=== PATIENT | female | born 1950 | race African-American/Black ===

== ENCOUNTER 2017-05-10 14:01 | Inpatient (IN) ==
[2017-05-10] MEDS ORDERED: ALBUTEROL/IPRATROPIUM 3 ML NEB RESP TX STA ×2 (14:07→15:20)
--- NOTE | 2017-05-10 14:14 | EKG Report ---
Stationary ECG Study [facility] ER Test Date: 05/10/2017 2:11:29 PM Pat Name: SHERRON MONTANO Department: Room: Gender: F Configurator: Shanita Tompkins : 1950 Requested by: Fifi Aburto Order Number: [id number] Reading MD: GEE JONES Intervals [employer] Rate: 70 P: 81 IL: 164 QRS: -42 QRSD: 104 T: 61 QT: 421 QTc: 441 Interpretive Statements SINUS RHYTHM at 70 bpm ABNORMAL LEFT AXIS DEVIATION Electronically Signed On 05-11-17 08:15:42 CDT by GEE JONES [email or web address]
[2017-05-10 14:50] LABS: Basophils % 0.3 % (0.0-0.8); Eosinophils # 0.3 10*3/uL (0.0-0.87); Eosinophils % 3.3 % (0.00-10.9); Hematocrit 38.1 VOL% (35.7-47.0); Immature Granulocytes % 0.2 %; Immature Granulocytes Absolute 0.02 #; Lymphocytes # 2.8 10*3/uL (1.4-4.0); Lymphocytes % 29.1 % (21.3-54.2); Mean Corpuscular HGB Conc 34.1 GM/DL (32-36); Mean Corpuscular Hemoglobin 28 PG (27-34); Mean Corpuscular Volume 83.4 FL (87-102); Mean Platelet Volume 11.2 FL (9.6-12.0); Monocytes % 10.3 % (1.7-12.7); Neutrophils # 5.5 10*3/uL (1.4-7.4); Neutrophils % 56.8 % (38.7-73.9); Platelet Count 148 T/CUMM (130-400); Red Blood Count 4.57 MC/CUMM (3.8-5.5); Red Cell Distribution Width 13.2 % (9.3-17.3); White Blood Count 9.7 T/CUMM (4-12)
[2017-05-10 15:08] LABS: Albumin 3.4 G/DL (3.4-5.0); Bilirubin,Total 0.4 MG/DL (0.2-1.0); Calcium 9.4 MG/DL (8.5-10.1); Osmolality,Calculated 280.7 MOS/KG (273-304); Potassium 4.4 MMOL/L (3.5-5.1); Total Protein 7.8 G/DL (6.4-8.3)
[2017-05-10 15:10] LABS: Troponin I Only < 0.015 NG/ML (0.00-0.045)
[2017-05-10] MEDS ORDERED: FUROSEMIDE 40 MG/4 ML VIAL IV STA (15:20)
[2017-05-10] MEDS ORDERED: FUROSEMIDE 40 MG/4 ML VIAL ONE (15:26)
[2017-05-10] MEDS ORDERED: methylPREDNISolone SOD SUC 125 MG/2 ML VIAL IV STA (15:52)
--- NOTE | 2017-05-10 15:57 | XRay Report ---
XR chest 2V Indication: Shortness of breath. Chest 2 views: Compared 11/17/2016, lungs are much better aerated with resolution of the right perihilar and right basilar pneumonia. However, bilateral perihilar interstitial prominence and diffuse peribronchial thickening is present on the current exam. No focal pneumonia is seen. Heart size remains normal. Impression: Airways disease such as bronchitis or viral syndrome. PROCEDURE INTERPRETED AT [facility] Final Report Signed by: Pedro Luis Shearer M.D.
[2017-05-10] MEDS ORDERED: methylPREDNISolone SOD SUC 125 MG/2 ML VIAL ONE (15:59)
--- NOTE | 2017-05-10 16:34 | Emergency Department Note ---
Hedy Sanz Hilary, am scribing for, and in the presence of, Arturo Werner MD 15:21. Debbi Sanz Phillip K, MD, personally performed the services described in this documentation, ascribed by Jacklyn Knott in my presence, and it is both accurate and complete 633 . Arrival - Arrival Chief Complaint: Shortness of Breath Stated Complaint: chest pain ED Nursing Triage Note: pt c/o shortness of breath with exertion x2 weeks. wheezing auscultated by Provider in Triage. Mode of Arrival: Wheelchair Limitations: No Limitations Source: Patient, RN Notes Reviewed Time Seen by Provider: 05/10/17 15:11 - History of Present Illness HPI Narrative: Pt is a 66 y/o female presenting to the ED with c/o SOB which has been intermittent for a month. Pt confirms SOB, cough (dry), chest sore and wheezing but denies fever. She has a PMHx of HTN, IDDM, Adrenal DIsease, Asthma, Sleep apnea and Pneumonia. No other complaints or problems stated in the ED. Onset (ago): month(s) Consistency: constant Severity: mild Severity scale (1-10): 1 Allergies/Adverse Reactions: Allergies Allergy/AdvReac Type Severity Reaction Status Date / Time Penicillins Allergy Intermediate RASH Verified 05/10/17 14:08 aspirin AdvReac Intermediate Gastrointestinal Verified 05/10/17 14:08 Upset morphine AdvReac Intermediate Nausea Verified 05/10/17 14:08 Home Medications: Home Medications Medication Instructions Recorded Confirmed Type Cyanocobalamin Inj [Vitamin B12 1,000 mcg SUBCUT Q30D 01/16/15 05/10/17 History Inj] Furosemide Tab [Lasix Tab] 60 mg PO DAILY 01/16/15 05/10/17 History Montelukast Tab [Singulair Tab] 10 mg PO DAILY 01/16/15 05/10/17 History Nebivolol [Bystolic] 10 mg PO DAILY 01/16/15 05/10/17 History Spironolactone [Aldactone] 25 mg PO DAILY 01/16/15 05/10/17 History Valsartan [Diovan] 160 mg PO DAILY 01/16/15 05/10/17 History Insulin Detemir [Levemir] 65 unit SUBCUT QAM 07/22/15 05/10/17 History amLODIPine [Norvasc] 5 mg PO DAILY 07/22/15 05/10/17 History Dicyclomine Cap/Tab [Bentyl 10 mg PO QID 07/09/16 05/10/17 History Cap/Tab] Colesevelam [Welchol] 1,875 mg PO BID W/MEALS tablet 11/18/16 05/10/17 Rx Albuterol Inhaler [Proventil 2 puff INH Q4H PRN 02/01/17 05/10/17 History Inhaler] Benzonatate [Tessalon] 100 mg PO TID PRN 02/01/17 05/10/17 History Diclofenac 1% Gel [Voltaren 1% Gel] 1 applic TOP QID 02/01/17 05/10/17 History Gabapentin 100 mg PO DAILY 02/01/17 05/10/17 History Levothyroxine Tab [Synthroid Tab] 75 mcg PO DAILY 02/01/17 05/10/17 History Mometasone 50 Mcg Nasal [place] 2 spray BOTH NARES BID 02/01/17 05/10/17 History [Nasonex Nasal [place]] Albuterol Neb [Proventil Neb] 2.5 mg RESP TX QID 05/10/17 05/10/17 History Insulin Aspart Prot/Insuln Asp 20 unit SUBCUT BID 05/10/17 05/10/17 History [NovoLOG Mix 70-30 FlexPen] Insulin Detemir [Levemir] 45 unit SUBCUT BEDTIME 05/10/17 05/10/17 History Review of System - Review of System 12 point system: reviewed and no additional remarkable complaints except as stated - Review of System Constitutional: Absent: fever Respiratory: Present: cough, respiratory distress (SOB), wheezing Medical,Surgical,& Family Hx - Medical History Cardio: History of: Cardiac Dysrhythmia (tachycardia), Hypertension No history of: [place], Pacemaker Neurology: No history of: Seizures HEENT: No history of: Glaucoma Endocrine: History of: Adrenal Disease, Diabetes Mellitus (IDDM) No history of: Thyroid Disorder Rheumatology: History of;: Rheumatological Problems (ATHRITIS) Respiratory: History of: Asthma, Obstructive Sleep Apnea (sleeps with cpap), Pneumonia (2016) No history of: Bronchitis, COPD, Intubation, Pulmonary Embolism, Pulmonary Hypertension, Lung Cancer, Respiratory Problems Genitourinary: No history of: Kidney Stones Gastrointestinal: History of: Esophageal Varices, GERD, Hepatitis (Hepatitis C) , Liver Problems (liver cancer), Gastrointestinal Cancer (Liver cancer), GI Problems (esophageal varices) Musculoskeletal: History of: Back/Neck Problems (lower back pain, KNEE PAIN) Hematology: History of: Blood Transfusion Reaction (got hepatitis c) Other: History of: Cancer (liver cancer-2014) No history of: Anesthesia Reactions - Surgical History Cardiac Surgeries: Patient Denies: Cardiac Catheterization Neurologic Surgeries: Patient denies: Neurologic Surgery HEENT Surgeries: Surgical HX of: Eye Surgery (cataract bilaterally), Tonsilectomy & Adenoidectomy Patient denies: Thyroid Surgery Abdominal Surgeries: Surgical HX of: Abdominal Surgery, Appendectomy, Cholecystectomy, Colonoscopy, EGD Patient denies: Hernia Repair Reproductive Surgeries: Surgical HX of;: Section (x 2), Hysterectomy Patient denies;: Breast Surgery Orthopedic Surgeries: Patient denies;: Orthopedic Surgery - Family History Family History: Reports;: Family Cancer (mother-breast, sister-breast), Family Diabetes (mom and dad), Family Heart Disease (father), Family Hypertension ( mother and father) Denies;: Family Anesthesia Reaction, Family Psychiatric Problems, Family Stroke - Social History Smoking Status: Never smoker Frequency of Alcohol Use: None Type of Drug Use: None Exam Vital Signs: Vital Signs Temperature 98.0 F 05/10/17 14:04 Pulse Rate 70 05/10/17 15:43 Respiratory Rate 20 05/10/17 15:43 Blood Pressure 177/79 05/10/17 14:15 O2 Sat by Pulse Oximetry 100 05/10/17 15:43 - General General appearance: alert, in no apparent distress - Head Head exam: Present: atraumatic, normocephalic - Eye Eye exam: Present: normal appearance, PERRL, EOMI - ENT ENT exam: Present: mucous membranes moist, TM's normal bilaterally. Absent: mucous membranes dry - Neck Neck exam: Present: full ROM, trachea midline. Absent: tenderness - Chest Chest inspection: Present: symmetric chest wall rise. Absent: tenderness - Respiratory Respiratory exam: Present: rales (bibasilar in both lungs), wheezes (expiratory) - Cardiovascular Cardiovascular exam: Present: regular rate, normal rhythm, normal heart sounds. Absent: murmur, rubs, gallop - Abdominal Exam Abdominal exam: Present: soft, normal bowel sounds. Absent: distention, tenderness - Extremities Exam Extremities exam: Present: full ROM. Absent: tenderness - Back Exam Back exam: Present: full ROM. Absent: tenderness - Neurological Exam Neurological exam: Present: alert, oriented X3, CN II-XII intact. Absent: motor sensory deficit - Psychiatric Psychiatric exam: Present: normal affect, normal mood - Skin Skin exam: Present: warm, dry, intact, normal color. Absent: rash Course Course Narrative: Patient discussed with the hospitalist. Results - Labs CBC & BMP: 05/10/17 14:36 05/10/17 14:36 Lab Results: I have reviewed the patients labs Labs: Laboratory Tests 05/10/17 05/10/17 05/10/17 14:36 14:36 14:36 WBC 9.7 RBC 4.57 Hgb 13.0 Hct 38.1 MCV 83.4 L Plt Count 148 [place] # (Auto) 1.0 H Sodium 138 Potassium 4.4 Chloride 105 Carbon Dioxide 29 Glucose 185 H AST 47 H Alkaline Phosphatase 128 H Troponin I < 0.015 Total Protein 7.8 Globulin 4.4 H Albumin/Globulin Ratio 0.7 L Laboratory Tests 05/10/17 14:36 B-Natriuretic Peptide 6 - EKG EKG results: interpreted by CORRY HARP, sinus rhythm - Diagnostic Findings Procedure: Chest x-ray: report reviewed by me (Airways disease such as bronchitis or viral syndrome) Disposition Clinical Impression: Asthma with exacerbation, Bronchitis Case discussed with: patient Disposition: Still a Patient Condition: Guarded Additional Instructions: Admit to the hospitalist
[2017-05-10] MEDS ORDERED: LEVOFLOXACIN INJ 500 MG in PREMIX 1 EACH IV STA (16:35)
[2017-05-10] MEDS ORDERED: LEVOFLOXACIN INJ 100 ML IV ONE (16:40)
[2017-05-10] MEDS ORDERED: ONDANSETRON 4 MG/2 ML VIAL IV PRN (17:36)
[2017-05-10] MEDS ORDERED: ACETAMINOPHEN 325 MG TABLET PO PRN (17:36)
[2017-05-10] MEDS ORDERED: ALBUTEROL 2.5 MG/3 ML NEB RESP TX PRN (17:36)
[2017-05-10] MEDS ORDERED: ZALEPLON 5 MG CAPSULE PO PRN (17:36)
[2017-05-10] MEDS ORDERED: BENZONATATE 100 MG CAPSULE PO PRN (17:36)
[2017-05-10] MEDS ORDERED: DEXTROSE 50% 25 GM/50 ML VIAL IV PRN (17:36)
[2017-05-10] MEDS ORDERED: MAGNESIUM SULF RIDER 2 GM in PREMIX 1 EACH IV ONE (17:36)
[2017-05-10] MEDS ORDERED: GLUCAGON 1 MG VIAL IM PRN (17:36)
--- NOTE | 2017-05-10 17:38 | Hospitalist History & Physical ---
Assessment and Plan (1) Asthma with exacerbation Status: Acute Assessment and plan: solumedrol, albuterol, levaquin, and singulair Current Visit: Yes (2) Diabetes Status: Acute Assessment and plan: ISC, restart home insulin Current Visit: Yes (3) Hypertension Status: Acute Assessment and plan: hold bystolic due to asthma, increase norvasc Current Visit: Yes (4) Obstructive sleep apnea Status: Acute Assessment and plan: cpap at night Current Visit: No (5) Bronchitis Status: Acute Assessment and plan: cont levaquin, solumedrol and albuterol neb every 4 hours, with prn every 2. Current Visit: Yes History of Present Illness Chief complaint: cough History of present illness: Ms. Mills is a 66 year old female DM, HTN and VAN sent over from Dr. Chiang office for asthma exacerbation. Patient coughing nonproductive since March. Already treating for asthma with inhalers, singulair and nebulizer. Reports chronic diarrhea which is why she is on welchol. Cannot lay flat as she cannot breath, does use her cpap at night. Could be having exacerbation of asthma due to GERD. Home Medications Medication Instructions Recorded Confirmed Type Cyanocobalamin Inj [Vitamin B12 1,000 mcg SUBCUT Q30D 01/16/15 05/10/17 History Inj] Furosemide Tab [Lasix Tab] 60 mg PO DAILY 01/16/15 05/10/17 History Montelukast Tab [Singulair Tab] 10 mg PO DAILY 01/16/15 05/10/17 History Nebivolol [Bystolic] 10 mg PO DAILY 01/16/15 05/10/17 History Spironolactone [Aldactone] 25 mg PO DAILY 01/16/15 05/10/17 History Valsartan [Diovan] 160 mg PO DAILY 01/16/15 05/10/17 History Insulin Detemir [Levemir] 65 unit SUBCUT QAM 07/22/15 05/10/17 History amLODIPine [Norvasc] 5 mg PO DAILY 07/22/15 05/10/17 History Dicyclomine Cap/Tab [Bentyl 10 mg PO QID 07/09/16 05/10/17 History Cap/Tab] Colesevelam [Welchol] 1,875 mg PO BID W/MEALS tablet 11/18/16 05/10/17 Rx Albuterol Inhaler [Proventil 2 puff INH Q4H PRN 02/01/17 05/10/17 History Inhaler] Benzonatate [Tessalon] 100 mg PO TID PRN 02/01/17 05/10/17 History Diclofenac 1% Gel [Voltaren 1% Gel] 1 applic TOP QID 02/01/17 05/10/17 History Gabapentin 100 mg PO DAILY 02/01/17 05/10/17 History Levothyroxine Tab [Synthroid Tab] 75 mcg PO DAILY 02/01/17 05/10/17 History Mometasone 50 Mcg Nasal [place] 2 spray BOTH NARES BID 02/01/17 05/10/17 History [Nasonex Nasal [place]] Albuterol Neb [Proventil Neb] 2.5 mg RESP TX QID 05/10/17 05/10/17 History Insulin Aspart Prot/Insuln Asp 20 unit SUBCUT BID 05/10/17 05/10/17 History [NovoLOG Mix 70-30 FlexPen] Insulin Detemir [Levemir] 45 unit SUBCUT BEDTIME 05/10/17 05/10/17 History Allergies Allergy/AdvReac Type Severity Reaction Status Date / Time Penicillins Allergy Intermediate RASH Verified 05/10/17 14:08 aspirin AdvReac Intermediate Gastrointestinal Verified 05/10/17 14:08 Upset morphine AdvReac Intermediate Nausea Verified 05/10/17 14:08 Medical,Surgical,& Family Hx - Medical History Cardio: History of: Cardiac Dysrhythmia (tachycardia), Hypertension No history of: [place], Pacemaker Neurology: No history of: Seizures HEENT: No history of: Glaucoma Endocrine: History of: Adrenal Disease, Diabetes Mellitus (IDDM) No history of: Thyroid Disorder Rheumatology: History of;: Rheumatological Problems (ATHRITIS) Respiratory: History of: Asthma, Obstructive Sleep Apnea (sleeps with cpap), Pneumonia (2016) No history of: Bronchitis, COPD, Intubation, Pulmonary Embolism, Pulmonary Hypertension, Lung Cancer, Respiratory Problems Genitourinary: No history of: Kidney Stones Gastrointestinal: History of: Esophageal Varices, GERD, Hepatitis (Hepatitis C) , Liver Problems (liver cancer), Gastrointestinal Cancer (Liver cancer), GI Problems (esophageal varices) Musculoskeletal: History of: Back/Neck Problems (lower back pain, KNEE PAIN) Hematology: History of: Blood Transfusion Reaction (got hepatitis c) Other: History of: Cancer (liver cancer-2014) No history of: Anesthesia Reactions - Surgical History Cardiac Surgeries: Patient Denies: Cardiac Catheterization Neurologic Surgeries: Patient denies: Neurologic Surgery HEENT Surgeries: Surgical HX of: Eye Surgery (cataract bilaterally), Tonsilectomy & Adenoidectomy Patient denies: Thyroid Surgery Abdominal Surgeries: Surgical HX of: Abdominal Surgery, Appendectomy, Cholecystectomy, Colonoscopy, EGD Patient denies: Hernia Repair Reproductive Surgeries: Surgical HX of;: Section (x 2), Hysterectomy Patient denies;: Breast Surgery Orthopedic Surgeries: Patient denies;: Orthopedic Surgery - Family History Family History: Reports;: Family Cancer (mother-breast, sister-breast), Family Diabetes (mom and dad), Family Heart Disease (father), Family Hypertension ( mother and father) Denies;: Family Anesthesia Reaction, Family Psychiatric Problems, Family Stroke - Social History Smoking Status: Never smoker Frequency of Alcohol Use: None Type of Drug Use: None Marital Status: Single Lives With:: Alone Functional capacity: independent ambulation - Constitutional Constitutional: Absent: fever(s), headache(s), weight gain - EENT Eyes: Absent: blurry vision, diplopia Ears: Absent: decreased hearing, ear discharge Nose, mouth and throat: Present: sore throat. Absent: headache(s) - Cardiovascular Cardiovascular: Present: dyspnea, dyspnea on exertion, orthopnea, PND. Absent: chest pain at rest, edema - Respiratory Respiratory: Present: dyspnea, dyspnea on exertion, wheezing, snoring - Gastrointestinal Gastrointestinal: Present: diarrhea. Absent: abdominal pain, nausea, vomiting - Genitourinary Genitourinary: Absent: difficulty urinating, dysuria - Neurological Neurological: Absent: confusion, focal weakness, headache(s) - Psychiatric Psychiatric: Present: depression. Absent: anxiety - Endocrine Endocrine: Absent: cold intolerance, fatigue - Hematologic/Lymphatic Hematologic/Lymphatic: Absent: easy bleeding, easy bruising Exam - Constitutional Vitals: Period Temp Pulse Resp BP Sys/Bernabe Pulse Ox Last 24 Hr 98.0 F-98.0 F 66-76 18-22 133-195/79-102 93-100 General appearance: no acute distress, morbidly obese - Head Head exam: Present: normal inspection, normocephalic - Eye Eye exam: Present: EOMI. Absent: conjunctival injection, scleral icterus Pupils: Present: CHRISTY, normal accommodation - ENT ENT exam: Present: normal exam, normal external ear exam - Neck Neck exam: Present: thyromegaly. Absent: lymphadenopathy - Respiratory Respiratory exam: Present: decreased breath sounds, wheezes. Absent: rhonchi - Cardiovascular Cardiovascular exam: Present: regular rate and rhythm. Absent: systolic murmur - GI/Abdominal GI/Abdominal exam: Present: normal bowel sounds, soft. Absent: tenderness - Extremities Exam Extremities exam: Present: normal inspection, normal capillary refill. Absent: edema - Neurological Exam Neurological exam: Present: alert, oriented X3, CN II-XII intact, reflexes normal. Absent: motor sensory deficit - Psychiatric Psychiatric exam: Present: normal affect, normal mood - Skin Skin exam: Present: normal color, warm Results - Labs CBC & BMP: 05/10/17 14:36 05/10/17 14:36 Lab Results: I have reviewed the past 24 hour labs - EKG EKG shows: sinus rhythm - Diagnostic Findings Procedure: Chest x-ray: report reviewed by me (bronchitis)
[2017-05-10] MEDS: ENOXAPARIN 40 MG/0.4 ML SYRINGE SUBCUT SCH (18:29)
[2017-05-10] MEDS: ALBUTEROL 2.5 MG/3 ML NEB RESP TX SCH ×2 (19:12→22:24)
[2017-05-10] MEDS ORDERED: INSULIN GLARGINE 100 UNIT/ML SUBCUT SCH (21:00)
[2017-05-10] MEDS: MONTELUKAST 10 MG TABLET PO SCH (21:23)
[2017-05-10] MEDS: PANTOPRAZOLE 40 MG TABLET PO SCH (21:23)
[2017-05-10] MEDS: DICYCLOMINE 10 MG CAPSULE PO SCH (21:23)
[2017-05-10] MEDS: methylPREDNISolone SOD SUC 125 MG/2 ML VIAL IV SCH (21:23)
[2017-05-10] MEDS: MOMETASONE 50 MCG NASAL SPRAY 17 GM BOTTLE BOTH NARES SCH (21:28)
[2017-05-10] MEDS: BUDESONIDE/FORMOTEROL 160-4.5 INHALER 6 GM INH SCH (21:28)
[2017-05-10] MEDS: INSULIN LISPRO 100 UNIT/ML SUBCUT SCH (22:55)
[2017-05-11] MEDS: ALBUTEROL 2.5 MG/3 ML NEB RESP TX SCH ×5 (03:55→19:38)
[2017-05-11] MEDS: methylPREDNISolone SOD SUC 125 MG/2 ML VIAL IV SCH ×4 (04:49→21:16)
[2017-05-11 05:21] LABS: Calcium 9.8 MG/DL (8.5-10.1); Osmolality,Calculated 287.8 MOS/KG (273-304)
[2017-05-11] MEDS: COLESEVELAM 625 MG TABLET PO SCH ×2 (07:44→16:11)
--- NOTE | 2017-05-11 08:23 | Physician Query Form ---
CLICK EDIT DOCUMENT TO SELECT QUERY ANSWER --> OK --> SIGN Noelle Rouse RN, CCDS Certified Clinical [employer] Making Machine Operator W) [phone] (f) [phone] [email or web address] PROVIDERS: Make your selection(s) from the choices in EACH section by typing an "x" and enter comments in the comment section. Please use your independent medical judgment in providing your response. This request does not imply that any particular answer is desired or expected. CLINICAL INDICATORS: (Providers should not edit this section) The medical record indicates that the patient was admitted for asthma exacerbation and the patient was treated with "solumedrol, albuterol, levaquin, and singulair". Based on documentation of Asthma, can you please provide further specificity regarding the diagnosis? ( ) Mild intermittent extrinsic asthma with acute exacerbation ( ) Mild persistent extrinsic asthma with acute exacerbation ( ) Moderate persistent extrinsic asthma with acute exacerbation ( ) Severe persistent extrinsic asthma with acute exacerbation ( x) Mild intermittent extrinsic asthma with status asthmaticus ( ) Mild persistent extrinsic asthma with status asthmaticus ( ) Moderate persistent extrinsic asthma with status asthmaticus ( ) Severe intermittent extrinsic asthma with status asthmaticus ( ) Other, please specify: ( ) Clinically unable to determine COMMENTS: PLEASE ALSO DOCUMENT RESPONSE IN PROGRESS NOTES AND/OR DISCHARGE SUMMARY Use of terms such as suspected, likely, or probable (associated with a specific diagnosis that is being evaluated, monitored, or treated as if it exists) are acceptable and can be restated in the discharge summary if not ruled out. MTDD
[2017-05-11] MEDS ORDERED: amLODIPine 5 MG TABLET PO SCH (09:00)
[2017-05-11] MEDS ORDERED: INSULIN GLARGINE 100 UNIT/ML SUBCUT SCH ×3 (09:00→11:41)
[2017-05-11] MEDS: DICYCLOMINE 10 MG CAPSULE PO SCH ×4 (09:03→21:15)
[2017-05-11] MEDS: INSULIN LISPRO 100 UNIT/ML SUBCUT SCH ×4 (09:03→21:15)
[2017-05-11] MEDS: VALSARTAN 160 MG TABLET PO SCH (09:03)
[2017-05-11] MEDS: GABAPENTIN 100 MG CAPSULE PO SCH (09:03)
[2017-05-11] MEDS: amLODIPine 10 MG TABLET PO SCH (09:03)
[2017-05-11] MEDS: PANTOPRAZOLE 40 MG TABLET PO SCH ×2 (09:03→21:14)
[2017-05-11] MEDS: LEVOTHYROXINE 75 MCG TABLET PO SCH (09:04)
[2017-05-11] MEDS: BUDESONIDE/FORMOTEROL 160-4.5 INHALER 6 GM INH SCH ×2 (09:04→21:16)
[2017-05-11] MEDS: MOMETASONE 50 MCG NASAL SPRAY 17 GM BOTTLE BOTH NARES SCH ×2 (09:04→21:16)
--- NOTE | 2017-05-11 11:38 | Hospitalist Progress Note ---
Assessment and Plan (1) Asthma with exacerbation Status: Acute Assessment and plan: Improving. plan continue with solumedrol, albuterol, levaquin, and singulair Current Visit: Yes (2) Diabetes Status: Acute Assessment and plan: poorly controlled most likely due to steroids. Plan increase qam Lantus to 75units, qhs lantus to 55units, follow response [id number] Current Visit: Yes (3) Hypertension Status: Acute Assessment and plan: continue home meds Current Visit: Yes (4) Obstructive sleep apnea Status: Acute Assessment and plan: cpap at night Current Visit: No (5) Bronchitis Status: Acute Assessment and plan: cont levaquin, solumedrol and albuterol neb every 4 hours, with prn every 2. Current Visit: Yes (6) History of liver cancer Status: Acute Assessment and plan: s/p chemo x2, awaiting surgery at [facility]. Current Visit: No Hospitalist: Subjective Interval history: Patient seen this am. She states she breathes and feels better. Exam - Constitutional Vitals: Period Temp Pulse Resp BP Sys/Bernabe Pulse Ox Last 24 Hr 96.5 F-98.0 F 66-96 16-22 115-195/59-102 93-100 General appearance: no acute distress, over weight - Eye Eye exam: Present: EOMI - Respiratory Respiratory exam: Present: clear to auscultation bilaterally, rales - Cardiovascular Cardiovascular exam: Present: regular rate and rhythm - GI/Abdominal GI/Abdominal exam: Present: normal bowel sounds - Extremities Exam Extremities exam: Present: normal inspection - Neurological Exam Neurological exam: Present: alert, oriented X3 Results - Labs CBC & BMP: 05/10/17 14:36 05/11/17 03:31 Lab Results: I have reviewed the past 24 hour labs
[2017-05-11] MEDS: ENOXAPARIN 40 MG/0.4 ML SYRINGE SUBCUT SCH (17:43)
--- NOTE | 2017-05-11 20:34 | ECHO Report ---
Aixa Mills Exam Date: 05/11/2017 09:50 Referring Physician: Technologist: suzie Ordonez ARDMS, RVT Age: 66 Ht (in): 62 Wt (lb): 239 Gender: F Exam Location: [facility] Echo Indications: Chest pain, unspecified, Essential (primary) hypertension, Cough, Asthma, VAN, Dyspnea, unspecified, IDDM BP: 129 / 60 HR: 76 Rhythm: Sinus Technical Quality: Fair IMPRESSIONS Normal LV systolic function, ejection fraction 60%. Grade 1/4 diastolic dysfunction. Mild mitral, tricuspid and pulmonic regurgitation. MEASUREMENTS (Male / Female) Normal Values 2D ECHO LV Diastolic Diameter PLAX 3.8 cm 4.2 - 5.9 / 3.9 - 5.3 cm LV Systolic Diameter PLAX 2.0 cm LV Fractional Shortening PLAX 47.1 % IVS Diastolic Thickness 1.0 cm 0.6 - 1.0 / 0.6 - 0.9 cm LVPW Diastolic Thickness 1.0 cm 0.6 - 1.0 / 0.6 - 0.9 cm RV Internal Dim ED PLAX 3.1 cm Aortic Root Diameter 3.1 cm LA Systolic Diameter LX 3.6 cm 3.0 - 4.0 / 2.7 - 3.8 cm DOPPLER TR Peak Velocity 288.0 cm/s TR Peak Gradient 33.2 mmHg FINDINGS Left Ventricle Normal left ventricular cavity size. Normal left ventricular wall thickness. Left ventricular ejection fraction is estimated at 60%. Right Ventricle The right ventricle is normal in size and function. Right Atrium The right atrium is normal in size. Left Atrium The left atrium is normal in size. Mitral Valve Morphologically normal mitral valve. No mitral valve stenosis. Mild mitral valve regurgitation. Aortic Valve Morphologically normal aortic valve without significant sclerosis or stenosis. There is no aortic regurgitation. Tricuspid Valve Morphologically normal tricuspid valve. Mild tricuspid valve regurgitation. Tricuspid regurgitation velocities suggest a PAP of 43 mmHg. Pulmonic Valve Morphologically normal pulmonic valve. Trace pulmonary valve regurgitation. Pericardium Normal pericardium without effusion. Aorta Normal ascending aorta dimension. Mihaela Conti MD (Electronically Signed) Final Date: 11 May 2017 20:33
[2017-05-11] MEDS: MONTELUKAST 10 MG TABLET PO SCH (21:14)
[2017-05-12] MEDS: ALBUTEROL 2.5 MG/3 ML NEB RESP TX SCH ×7 (00:01→23:21)
[2017-05-12] MEDS: methylPREDNISolone SOD SUC 125 MG/2 ML VIAL IV SCH ×2 (05:15→08:37)
[2017-05-12] MEDS: INSULIN LISPRO 100 UNIT/ML SUBCUT SCH ×4 (08:38→21:20)
[2017-05-12] MEDS: COLESEVELAM 625 MG TABLET PO SCH ×2 (08:39→16:53)
[2017-05-12] MEDS: LEVOTHYROXINE 75 MCG TABLET PO SCH (08:39)
[2017-05-12] MEDS: VALSARTAN 160 MG TABLET PO SCH (08:39)
[2017-05-12] MEDS: amLODIPine 10 MG TABLET PO SCH (08:39)
[2017-05-12] MEDS: DICYCLOMINE 10 MG CAPSULE PO SCH ×4 (08:40→21:20)
[2017-05-12] MEDS: PANTOPRAZOLE 40 MG TABLET PO SCH ×2 (08:40→21:20)
[2017-05-12] MEDS: GABAPENTIN 100 MG CAPSULE PO SCH (08:40)
[2017-05-12] MEDS: BUDESONIDE/FORMOTEROL 160-4.5 INHALER 6 GM INH SCH ×2 (08:43→21:20)
[2017-05-12] MEDS: MOMETASONE 50 MCG NASAL SPRAY 17 GM BOTTLE BOTH NARES SCH ×2 (08:45→21:20)
[2017-05-12] MEDS: predniSONE 20 MG TABLET PO SCH (09:16)
[2017-05-12] MEDS: FUROSEMIDE 20 MG TABLET PO SCH (09:54)
--- NOTE | 2017-05-12 12:22 | Hospitalist Progress Note ---
Assessment and Plan (1) Asthma with exacerbation Status: Acute Assessment and plan: Improving. plan continue with , albuterol, levaquin, and singulair Switch solumedrol to po prednisone Current Visit: Yes (2) Diabetes Status: Acute Assessment and plan: poorly controlled most likely due to steroids. Plan increase qam Lantus to 85units, qhs lantus to 65units, follow response [id number] Taper down steroids. Current Visit: Yes (3) Hypertension Status: Acute Assessment and plan: Increase Diovan to 320mg, follow response Current Visit: Yes (4) Obstructive sleep apnea Status: Acute Assessment and plan: cpap at night Current Visit: No (5) Bronchitis Status: Acute Assessment and plan: cont levaquin, steroids,and albuterol neb every 4 hours, with prn every 2. Current Visit: Yes (6) History of liver cancer Status: Acute Assessment and plan: s/p chemo x2, awaiting surgery at [facility]. Current Visit: No Hospitalist: Subjective Interval history: Patient feels better but blood sugar is out of control due to IV steroids. We will switch to lower dose and po Exam - Constitutional Vitals: Period Temp Pulse Resp BP Sys/Bernabe Pulse Ox Last 24 Hr 97.2 F-97.9 F 76-94 17-22 124-166/58-85 95-99 General appearance: no acute distress - Head Head exam: Present: normal inspection - Respiratory Respiratory exam: Present: rales - Cardiovascular Cardiovascular exam: Present: regular rate and rhythm - GI/Abdominal GI/Abdominal exam: Present: normal bowel sounds - Extremities Exam Extremities exam: Present: normal inspection - Neurological Exam Neurological exam: Present: alert, oriented X3 Results - Labs CBC & BMP: 05/10/17 14:36 05/11/17 03:31 Lab Results: I have reviewed the past 24 hour labs
[2017-05-12] MEDS ORDERED: VALSARTAN 160 MG TABLET PO SCH (12:23)
[2017-05-12 16:29] LABS: Apearance,Urine CLEAR (Clear); Bilirubin,Urine Negative (Negative); Blood, Urine Small mg/dL (Negative); Glucose,Urine (UA) >=500 mg/dL (Negative); Ketones,Urine Negative (Negative); Mucus,Urine Occasional /LPF (Occasional); Nitrite,Urine Negative (Negative); Protein,Urine Negative; RBC,Urine <1 /HPF (0-4); Squamous Epithelial Cell,Urine Occasional /HPF (0-10); Urine Color Colorless (Yellow); Urine Specific Gravity 1.006 (1.001-1.035); Urine Urobilinogen < 2.0 EU/DL (0.2-1.0); WBC,Urine <1 /HPF (0-6)
[2017-05-12] MEDS: MONTELUKAST 10 MG TABLET PO SCH (21:20)
[2017-05-12] MEDS: ENOXAPARIN 40 MG/0.4 ML SYRINGE SUBCUT SCH (21:20)
[2017-05-12] MEDS: INSULIN GLARGINE 100 UNIT/ML SUBCUT SCH (21:23)
[2017-05-13] MEDS: ALBUTEROL 2.5 MG/3 ML NEB RESP TX SCH ×5 (02:04→20:33)
[2017-05-13 07:13] LABS: Basophils % 0.1 % (0.0-0.8); Hematocrit 36.8 VOL% (35.7-47.0); Hemoglobin 13.1 GM/DL (12.0-16.0); Immature Granulocytes Absolute 0.16 #; Lymphocytes # 1.8 10*3/uL (1.4-4.0); Mean Corpuscular HGB Conc 35.6 GM/DL (32-36); Mean Corpuscular Hemoglobin 29 PG (27-34); Mean Corpuscular Volume 80.9 FL (87-102); Mean Platelet Volume 11.5 FL (9.6-12.0); Monocytes # 0.9 10*3/uL (0.11-0.8); Monocytes % 5.7 % (1.7-12.7); Neutrophils # 13.6 10*3/uL (1.4-7.4); Neutrophils % 82.2 % (38.7-73.9); Platelet Count 141 T/CUMM (130-400); Red Blood Count 4.55 MC/CUMM (3.8-5.5); Red Cell Distribution Width 12.7 % (9.3-17.3); White Blood Count 16.6 T/CUMM (4-12)
[2017-05-13 07:45] LABS: Osmolality,Calculated 280.5 MOS/KG (273-304); Potassium 3.8 MMOL/L (3.5-5.1)
[2017-05-13] MEDS: amLODIPine 10 MG TABLET PO SCH (08:27)
[2017-05-13] MEDS: predniSONE 20 MG TABLET PO SCH (08:27)
[2017-05-13] MEDS: DICYCLOMINE 10 MG CAPSULE PO SCH ×4 (08:27→21:28)
[2017-05-13] MEDS: LEVOTHYROXINE 75 MCG TABLET PO SCH (08:27)
[2017-05-13] MEDS: COLESEVELAM 625 MG TABLET PO SCH ×2 (08:27→16:20)
[2017-05-13] MEDS: INSULIN GLARGINE 100 UNIT/ML SUBCUT SCH ×2 (08:28→21:29)
[2017-05-13] MEDS: MOMETASONE 50 MCG NASAL SPRAY 17 GM BOTTLE BOTH NARES SCH ×2 (08:29→21:29)
[2017-05-13] MEDS: FUROSEMIDE 20 MG TABLET PO SCH (08:40)
[2017-05-13] MEDS: PANTOPRAZOLE 40 MG TABLET PO SCH ×2 (08:40→21:29)
[2017-05-13] MEDS: GABAPENTIN 100 MG CAPSULE PO SCH (08:43)
[2017-05-13] MEDS: BUDESONIDE/FORMOTEROL 160-4.5 INHALER 6 GM INH SCH ×2 (08:43→21:29)
[2017-05-13] MEDS: VALSARTAN 160 MG TABLET PO SCH (09:01)
[2017-05-13] MEDS: INSULIN LISPRO 100 UNIT/ML SUBCUT SCH ×4 (09:01→21:29)
--- NOTE | 2017-05-13 14:29 | Hospitalist Progress Note ---
Assessment and Plan (1) Asthma with exacerbation Status: Acute Assessment and plan: Improving.Hopefully dc in am plan continue with , albuterol, levaquin, and singulair, prednisone follow repeat CXR Current Visit: Yes (2) Diabetes Status: Acute Assessment and plan: Improved on current regime.[id number] Current Visit: Yes (3) Hypertension Status: Acute Assessment and plan: stable Current Visit: Yes (4) Obstructive sleep apnea Status: Acute Assessment and plan: cpap at night Current Visit: No (5) Bronchitis Status: Acute Assessment and plan: cont levaquin, steroids,and albuterol neb every 4 hours, with prn every 2. Current Visit: Yes (6) History of liver cancer Status: Acute Assessment and plan: s/p chemo x2, awaiting surgery at [facility]. Current Visit: No Hospitalist: Subjective Interval history: Patient was lying comfortably in bed with no new complaints. Exam - Constitutional Vitals: Period Temp Pulse Resp BP Sys/Bernabe Pulse Ox Last 24 Hr 96.8 F-97.2 F 74-95 16-20 125-169/61-97 93-99 General appearance: no acute distress - Head Head exam: Present: normal inspection - Respiratory Respiratory exam: Present: clear to auscultation bilaterally - Cardiovascular Cardiovascular exam: Present: regular rate and rhythm - Extremities Exam Extremities exam: Present: normal inspection - Neurological Exam Neurological exam: Present: alert, oriented X3 Results - Labs CBC & BMP: 05/13/17 06:45 05/13/17 06:45 Lab Results: I have reviewed the past 24 hour labs
[2017-05-13] MEDS: MONTELUKAST 10 MG TABLET PO SCH (21:29)
[2017-05-13] MEDS: ENOXAPARIN 40 MG/0.4 ML SYRINGE SUBCUT SCH (21:29)
[2017-05-14] MEDS: ALBUTEROL 2.5 MG/3 ML NEB RESP TX SCH ×7 (00:32→23:59)
--- NOTE | 2017-05-14 07:33 | XRay Report ---
Exam: XR chest 2V Date: 05/14/2017 4:00 AM Indication: Pneumonia Comparison: 05/10/2017 Technical: PA lateral Findings: Increasing at platelike atelectatic change in the left base and along the region of the minor fissure. Surgical changes present right upper abdomen. Cardiomegaly is present. Mid inspiratory chest was obtained. Degenerative change present thoracic spine. Mediastinum is otherwise intact. No pneumothorax. Moderate fecal debris in the upper abdomen Impression: 1. Cardiomegaly 2. Interval development of bilateral basilar atelectatic change and/or pneumonic infiltrates. PROCEDURE INTERPRETED AT [facility] DEPARTMENT OF RADIOLOGY Final Report Signed by: Dr. Wan Sepulveda
[2017-05-14] MEDS ORDERED: LEVOFLOXACIN INJ 750 MG in PREMIX 1 EACH IV ONE (08:36)
[2017-05-14] MEDS: LEVOTHYROXINE 75 MCG TABLET PO SCH (08:53)
[2017-05-14] MEDS: DICYCLOMINE 10 MG CAPSULE PO SCH ×4 (08:54→21:27)
[2017-05-14] MEDS: COLESEVELAM 625 MG TABLET PO SCH ×2 (08:54→17:00)
[2017-05-14] MEDS: amLODIPine 10 MG TABLET PO SCH (08:54)
[2017-05-14] MEDS: GABAPENTIN 100 MG CAPSULE PO SCH (08:54)
[2017-05-14] MEDS: predniSONE 20 MG TABLET PO SCH (08:54)
[2017-05-14] MEDS: PANTOPRAZOLE 40 MG TABLET PO SCH ×2 (08:55→21:31)
[2017-05-14] MEDS: FUROSEMIDE 20 MG TABLET PO SCH (08:55)
[2017-05-14] MEDS: VALSARTAN 160 MG TABLET PO SCH (08:55)
[2017-05-14] MEDS: INSULIN GLARGINE 100 UNIT/ML SUBCUT SCH ×2 (09:03→21:26)
--- NOTE | 2017-05-14 09:10 | Discharge Summary ---
Hospital Course - Time spent with patient Time with patient DS: Greater than 30 minutes Diagnosis - Discharge Diagnosis (1) Asthma with exacerbation Status: Acute (2) Diabetes Status: Acute (3) Hypertension Status: Acute (4) Obstructive sleep apnea Status: Acute (5) Bronchitis Status: Acute (6) History of liver cancer Status: Acute Discharge Plan - Discharge Medications No Action Montelukast Tab [Singulair Tab] 10 mg PO DAILY Furosemide Tab [Lasix Tab] 60 mg PO DAILY Valsartan [Diovan] 160 mg PO DAILY Cyanocobalamin Inj [Vitamin B12 Inj] 1,000 mcg SUBCUT Q30D Nebivolol [Bystolic] 10 mg PO DAILY Spironolactone [Aldactone] 25 mg PO DAILY Insulin Detemir [Levemir] 65 unit SUBCUT QAM amLODIPine [Norvasc] 5 mg PO DAILY Dicyclomine Cap/Tab [Bentyl Cap/Tab] 10 mg PO QID Levothyroxine Tab [Synthroid Tab] 75 mcg PO DAILY Diclofenac 1% Gel [Voltaren 1% Gel] 1 applic TOP QID Insulin Aspart Prot/Insuln Asp [NovoLOG Mix 70-30 FlexPen] 20 unit SUBCUT BID Albuterol Neb [Proventil Neb] 2.5 mg RESP [place] QID Colesevelam [Welchol] 1,875 mg PO BID W/MEALS tablet Albuterol Inhaler [Proventil Inhaler] 2 puff INH Q4H PRN PRN Reason: Shortness Of Breath/Wheezing Mometasone 50 Mcg Nasal [place] [Nasonex Nasal [place]] 2 spray BOTH NARES BID Gabapentin 100 mg PO DAILY Benzonatate [Tessalon] 100 mg PO TID PRN PRN Reason: Cough Insulin Detemir [Levemir] 45 unit SUBCUT BEDTIME - Follow Up or Referral - Forms/Instructions Exam - Constitutional Vitals: Period Temp Pulse Resp BP Sys/Bernabe Pulse Ox Last 24 Hr 97.1 F-98.1 F 69-87 16-22 127-196/63-88 92-100 Discharge Results Procedures and tests throughout hospitalization: Pending Orders 05/11/17 09:01 Blood Culture Routine Labs on day of discharge: Labs from last 24 hours 05/13/17 05/13/17 05/13/17 20:40 16:16 11:19 POC Glucose 279 H 266 H 231 H Preliminary micro results at discharge 08/01/17 09:01 Blood Culture - Preliminary Blood No growth at 1 day 05/11/17 09:01 Blood Culture - Preliminary Blood No growth at 1 day DS: Provider Date of admission: 05/10/17 16:48 Primary care physician: Umu Ramirez M.D. Attending physician on admission: Gerson SMITH Discharging clinician: Tracy Goodrich MD
[2017-05-14] MEDS: INSULIN LISPRO 100 UNIT/ML SUBCUT SCH ×4 (09:23→21:27)
[2017-05-14] MEDS ORDERED: INSULIN GLARGINE 100 UNIT/ML SUBCUT SCH (10:44)
--- NOTE | 2017-05-14 12:24 | Hospitalist Progress Note ---
Assessment and Plan (1) Asthma with exacerbation Status: Acute Assessment and plan: repeat CXR showed nterval development of bilateral basilar atelectatic change and/or pneumonic infiltrates. plan continue with , albuterol, levaquin, and singulair, prednisone Current Visit: Yes (2) Diabetes Status: Acute Assessment and plan: Improving. Qam lantus has been reduced to the original home dose. [id number] Current Visit: Yes (3) Hypertension Status: Acute Assessment and plan: continue current regime Current Visit: Yes (4) Obstructive sleep apnea Status: Acute Assessment and plan: cpap at night Current Visit: No (5) Bronchitis Status: Acute Assessment and plan: cont levaquin, steroids,and albuterol neb every 4 hours, with prn every 2. Current Visit: Yes (6) History of liver cancer Status: Acute Assessment and plan: s/p chemo x2, awaiting surgery at [facility]. Current Visit: No Hospitalist: Subjective Interval history: Patient seen. She was feeling weak.Her blood sugar is trending downwards so we reduced her qam Lantus to her original home dose. Exam - Constitutional Vitals: Period Temp Pulse Resp BP Sys/Bernabe Pulse Ox Last 24 Hr 95.8 F-98.1 F 69-87 16-22 127-196/63-88 92-100 General appearance: no acute distress - Head Head exam: Present: normal inspection - Respiratory Respiratory exam: Present: clear to auscultation bilaterally - Cardiovascular Cardiovascular exam: Present: regular rate and rhythm - GI/Abdominal GI/Abdominal exam: Present: normal bowel sounds - Extremities Exam Extremities exam: Present: normal inspection - Neurological Exam Neurological exam: Present: alert, oriented X3 Results - Labs CBC & BMP: 05/13/17 06:45 05/13/17 06:45 Lab Results: I have reviewed the past 24 hour labs
[2017-05-14] MEDS: BUDESONIDE/FORMOTEROL 160-4.5 INHALER 6 GM INH SCH ×2 (17:07→21:29)
[2017-05-14] MEDS: MOMETASONE 50 MCG NASAL SPRAY 17 GM BOTTLE BOTH NARES SCH ×2 (17:07→21:28)
[2017-05-14] MEDS: ENOXAPARIN 40 MG/0.4 ML SYRINGE SUBCUT SCH (21:27)
[2017-05-14] MEDS: MONTELUKAST 10 MG TABLET PO SCH (21:31)
[2017-05-15] MEDS: ALBUTEROL 2.5 MG/3 ML NEB RESP TX SCH ×3 (04:07→11:13)
[2017-05-15] MEDS: DICYCLOMINE 10 MG CAPSULE PO SCH ×2 (08:44→12:01)
[2017-05-15] MEDS: VALSARTAN 160 MG TABLET PO SCH (08:44)
[2017-05-15] MEDS: FUROSEMIDE 20 MG TABLET PO SCH (08:44)
[2017-05-15] MEDS: COLESEVELAM 625 MG TABLET PO SCH (08:45)
[2017-05-15] MEDS: PANTOPRAZOLE 40 MG TABLET PO SCH (08:45)
[2017-05-15] MEDS: GABAPENTIN 100 MG CAPSULE PO SCH (08:45)
[2017-05-15] MEDS: LEVOTHYROXINE 75 MCG TABLET PO SCH (08:45)
[2017-05-15] MEDS: predniSONE 20 MG TABLET PO SCH (08:45)
[2017-05-15] MEDS: amLODIPine 10 MG TABLET PO SCH (08:45)
[2017-05-15] MEDS: BUDESONIDE/FORMOTEROL 160-4.5 INHALER 6 GM INH SCH (08:50)
[2017-05-15] MEDS ORDERED: LEVOFLOXACIN INJ 750 MG in PREMIX 1 EACH IV SCH (09:00)
[2017-05-15] MEDS: MOMETASONE 50 MCG NASAL SPRAY 17 GM BOTTLE BOTH NARES SCH (09:11)
[2017-05-15] MEDS: INSULIN LISPRO 100 UNIT/ML SUBCUT SCH ×2 (09:11→12:00)
--- NOTE | 2017-05-15 11:05 | Discharge Summary ---
<Gerson Jose - Last Filed: 05/15/17 10:55> Hospital Course - Hospital Course Hospital Course: Ms. Mills is a 66 year old female who presented to the ED from her PCP's office for further evaluation of asthma exacerbation. On admission, the patient reported a nonproductive cough since March. She's already been treated with inhalers, singular and nebulizer. Echocardiogram revealed a normal LV systolic function with estimated EF of 60% and mild mitral, tricuspid and pulmonic regurgitation. Prednisone and levaquin was added to her regime for the exacerbation and bronchitis. She continued her CPAP while hospitalized and improved significantly. Patient's serum glucose was significantly elevated on admission and during her course. She was started on Lantus QAM and responded appropriately to therapy. HgbA1c 8.5. We have restarted her home dose of insulin since the downward trend in her glucose. At this time she has reached maximum benefit from hospitalization and is stable for discharge home. She will be discharged home to self with PCP follow up in 1-2 weeks.She feels much better today , we will continue with home bp meds and Insulin regime, place her on prednisone taper and po Levaquin x7days. She will need to follow with her PCP in 1week. - Time spent with patient Time with patient DS: Greater than 30 minutes Discharge Plan - Discharge Data Disposition: Disch To Home/Self Care - Discharge Medications New Budesonide/Formoterol 160-4.5 [Symbicort 160-4.5] 2 puff INH BID #7 inhaler HYDROcodone/ACETAMIN 7.5-325 [[place] 7.5-325] 1 tablet PO Q4H PRN #20 tablet PRN Reason: Pain Moderate (4-7) predniSONE TAB [PredniSONE] See Taper PO DAILY #14 tablet Levofloxacin Tab [Levaquin Tab] 750 mg PO DAILY #7 tablet Continue Montelukast Tab [Singulair Tab] 10 mg PO DAILY Furosemide Tab [Lasix Tab] 60 mg PO DAILY Valsartan [Diovan] 160 mg PO DAILY Cyanocobalamin Inj [Vitamin B12 Inj] 1,000 mcg SUBCUT Q30D Nebivolol [Bystolic] 10 mg PO DAILY Spironolactone [Aldactone] 25 mg PO DAILY Insulin Detemir [Levemir] 65 unit SUBCUT QAM amLODIPine [Norvasc] 5 mg PO DAILY Dicyclomine Cap/Tab [Bentyl Cap/Tab] 10 mg PO QID Levothyroxine Tab [Synthroid Tab] 75 mcg PO DAILY Diclofenac 1% Gel [Voltaren 1% Gel] 1 applic TOP QID Insulin Aspart Prot/Insuln Asp [NovoLOG Mix 70-30 FlexPen] 20 unit SUBCUT BID Albuterol Neb [Proventil Neb] 2.5 mg RESP TX QID Colesevelam [Welchol] 1,875 mg PO BID W/MEALS tablet Albuterol Inhaler [Proventil Inhaler] 2 puff INH Q4H PRN PRN Reason: Shortness Of Breath/Wheezing Gabapentin 100 mg PO DAILY Benzonatate [Tessalon] 100 mg PO TID PRN PRN Reason: Cough Insulin Detemir [Levemir] 45 unit SUBCUT BEDTIME Discontinued Mometasone 50 Mcg Nasal [place] [Nasonex Nasal [place]] 2 spray BOTH NARES BID - Follow Up or Referral - Forms/Instructions Exam - Constitutional Vitals: Period Temp Pulse Resp BP Sys/Bernabe Pulse Ox Last 24 Hr 96.1 F-98.2 F 75-89 18-22 139-173/65-84 94-100 Discharge Results Procedures and tests throughout hospitalization: Pending Orders 05/11/17 09:01 Blood Culture Routine Labs on day of discharge: Labs from last 24 hours 05/15/17 05/15/17 05/14/17 08:43 07:05 19:55 POC Glucose 147 H 66 L 313 H 05/14/17 05/14/17 05/14/17 15:45 12:22 08:03 POC Glucose 245 H 249 H 98 Preliminary micro results at discharge 05/11/17 09:01 Blood Culture - Preliminary Blood No growth at 3 days 05/11/17 09:01 Blood Culture - Preliminary Blood No growth at 3 days DS: Provider Date of admission: 05/10/17 16:48 Primary care physician: Umu Ramirez M.D. Attending physician on admission: Gerson SMITH Discharging clinician: Gerson SMITH Expected date of discharge: 05/15/17 <Tracy Goodrich - Last Filed: 05/15/17 11:21> Hospital Course - Time spent with patient Time with patient DS: Greater than 30 minutes (Time spent greater than 35mins) Diagnosis - Discharge Diagnosis (1) Asthma with exacerbation Status: Acute (2) Diabetes Status: Acute (3) Hypertension Status: Acute (4) Obstructive sleep apnea Status: Acute (5) Bronchitis Status: Acute (6) History of liver cancer Status: Acute Discharge Plan - Discharge Data Condition at Discharge: Stable Discharge Diet: diabetic diet Activity: resume usual activities as tolerated Exam - Constitutional General appearance: no acute distress - Head Head exam: Present: normal inspection - Respiratory Respiratory exam: Present: clear to auscultation bilaterally - Cardiovascular Cardiovascular exam: Present: regular rate and rhythm - GI/Abdominal GI/Abdominal exam: Present: normal bowel sounds - Extremities Exam Extremities exam: Present: normal inspection - Neurological Exam Neurological exam: Present: alert, oriented X3
[2017-05-15 11:48] VITALS: BP 133/70
== END 2017-05-15 13:00 | disposition home or self-care (01) | DRG 202 ==
LOC: N.ED 14:01 → N.EDINP 16:48 → SUATTDRO 16:48 → N.EDINP 17:29 → N.2E 17:35
PROVIDERS: ADMIT Physician Assistant; ATTEND Internal Medicine

== ENCOUNTER 2017-06-03 18:06 | Inpatient (IN) ==
[2017-06-03] MEDS ORDERED: ONDANSETRON 4 MG/2 ML VIAL IV STA (19:09)
[2017-06-03] MEDS ORDERED: SODIUM CHLORIDE 0.9% 500 ML IV STA (19:09)
[2017-06-03] MEDS ORDERED: MECLIZINE 25 MG TABLET PO STA (19:09)
[2017-06-03] MEDS ORDERED: INSULIN REGULAR 100 UNIT/ML SUBCUT STA (19:11)
--- NOTE | 2017-06-03 19:20 | Emergency Department Note ---
IMoises Emily, am scribing for, and in the presence of, Mendoza Mejia MD 19: 19. IJackie Charles R, MD, personally performed the services described in this documentation, ascribed by Poonam De Leon in my presence, and it is both accurate and complete 920 . Arrival - Arrival Chief Complaint: Non-Specific Stated Complaint: Blood Sugar over 600, Confused feeling ED Nursing Triage Note: elevated blood glucose 481 at time of triage - pt states that she was d/c from the hospital on for asthma and is currently taking steroids Mode of Arrival: Wheelchair Limitations: No Limitations Source: Patient Time Seen by Provider: 06/03/17 18:27 - History of Present Illness HPI Narrative: Pt is a 66 y/o female who came to ED with c/o elevated glucose of +600 that started since being seen on June 01 for asthma attack. Pt states she tried adjusting her insulin so her glucose level would not be effected. Pt reports that today is last day of steroid medication, but head "feels funny" like dizzy and "about to fall." Pt notes seeing provider today to check asthma and had nml results. Onset (ago): day(s) Consistency: constant Severity: mild Severity scale (1-10): 3 Quality: other (dizzy) Date of Last Menstrual Period: hyster Allergies/Adverse Reactions: Allergies Allergy/AdvReac Type Severity Reaction Status Date / Time Penicillins Allergy Intermediate RASH Verified 06/01/17 13:44 aspirin AdvReac Intermediate Gastrointestinal Verified 06/01/17 13:44 Upset morphine AdvReac Intermediate Nausea Verified 06/01/17 13:44 Home Medications: Home Medications Medication Instructions Recorded Confirmed Type Cyanocobalamin Inj [Vitamin B12 1,000 mcg SUBCUT Q30D 01/16/15 06/03/17 History Inj] Furosemide Tab [Lasix Tab] 60 mg PO QAM 01/16/15 06/03/17 History Montelukast Tab [Singulair Tab] 10 mg PO QAM 01/16/15 06/03/17 History Nebivolol [Bystolic] 10 mg PO QAM 01/16/15 06/03/17 History Spironolactone [Aldactone] 25 mg PO QAM 01/16/15 06/03/17 History Valsartan [Diovan] 160 mg PO QAM 01/16/15 06/03/17 History Insulin Detemir [Levemir] 65 unit SUBCUT QAM 07/22/15 06/03/17 History amLODIPine [Norvasc] 5 mg PO QAM 07/22/15 06/03/17 History Dicyclomine Cap/Tab [Bentyl 10 mg PO QID 07/09/16 06/03/17 History Cap/Tab] Colesevelam [Welchol] 1,875 mg PO BID W/MEALS tablet 11/18/16 06/03/17 Rx Benzonatate [Tessalon] 100 mg PO TID PRN 02/01/17 06/03/17 History Diclofenac 1% Gel [Voltaren 1% Gel] 1 applic TOP QID 02/01/17 06/03/17 History Gabapentin 100 mg PO QAM 02/01/17 06/03/17 History Levothyroxine Tab [Synthroid Tab] 75 mcg PO QAM 02/01/17 06/03/17 History Albuterol Neb [Proventil Neb] 2.5 mg RESP TX QID 05/10/17 06/03/17 History Insulin Aspart Prot/Insuln Asp 20 unit SUBCUT BID 05/10/17 06/03/17 History [NovoLOG Mix 70-30 FlexPen] Insulin Detemir [Levemir] 45 unit SUBCUT BEDTIME 05/10/17 06/03/17 History Budesonide/Formoterol 160-4.5 2 puff INH BID #7 inhaler 05/15/17 06/03/17 Rx [Symbicort 160-4.5] HYDROcodone/ACETAMIN 7.5-325 1 tablet PO Q4H PRN #20 tablet 05/15/17 06/03/17 Rx [[place] 7.5-325] Albuterol Inhaler [Proventil 2 puff INH Q4H PRN #1 inhaler 06/01/17 06/03/17 Rx Inhaler] Rifaximin [Xifaxan] 550 mg PO BID 06/01/17 06/03/17 History methylPREDNISolone DOSEPAK [Medrol 4 mg PO DAILY #21 tablet 06/01/17 06/03/17 Rx Dosepak] Review of System - Review of System 12 point system: reviewed and no additional remarkable complaints except as stated - Review of System Constitutional: Absent: fever Respiratory: Absent: respiratory distress Cardiovascular: Absent: chest pain, syncope Gastrointestinal: Absent: abdominal pain, nausea, vomiting Musculoskeletal: Absent: arm pain, neck pain Skin: Absent: rash Neurological: Present: other (dizziness). Absent: headache (head "feels funny") , numbness, confusion, abnormal gait Psychiatric: Absent: anxiety Medical,Surgical,& Family Hx - Medical History Cardio: History of: Cardiac Dysrhythmia (tachycardia), Hypertension No history of: MO, Pacemaker Neurology: No history of: Seizures HEENT: No history of: Glaucoma Endocrine: History of: Adrenal Disease, Diabetes Mellitus (IDDM) No history of: Thyroid Disorder Rheumatology: History of;: Rheumatological Problems (ATHRITIS) Respiratory: History of: Asthma, Obstructive Sleep Apnea (sleeps with cpap), Pneumonia (2016) No history of: Bronchitis, COPD, Intubation, Pulmonary Embolism, Pulmonary Hypertension, Lung Cancer, Respiratory Problems Genitourinary: No history of: Kidney Stones Gastrointestinal: History of: Esophageal Varices, GERD, Hepatitis (Hepatitis C) , Liver Problems (liver cancer), Gastrointestinal Cancer (Liver cancer), GI Problems (esophageal varices) Musculoskeletal: History of: Back/Neck Problems (lower back pain, KNEE PAIN) Hematology: History of: Blood Transfusion Reaction (got hepatitis c) Other: History of: Cancer (liver cancer-2014) No history of: Anesthesia Reactions - Surgical History Cardiac Surgeries: Patient Denies: Cardiac Catheterization Neurologic Surgeries: Patient denies: Neurologic Surgery HEENT Surgeries: Surgical HX of: Eye Surgery (cataract bilaterally), Tonsilectomy & Adenoidectomy Patient denies: Thyroid Surgery Abdominal Surgeries: Surgical HX of: Abdominal Surgery, Appendectomy, Cholecystectomy, Colonoscopy, EGD Patient denies: Hernia Repair Reproductive Surgeries: Surgical HX of;: Section (x 2), Hysterectomy Patient denies;: Breast Surgery Orthopedic Surgeries: Patient denies;: Orthopedic Surgery - Family History Family History: Reports;: Family Cancer (mother-breast, sister-breast), Family Diabetes (mom and dad), Family Heart Disease (father), Family Hypertension ( mother and father) Denies;: Family Anesthesia Reaction, Family Psychiatric Problems, Family Stroke - Social History Smoking Status: Never smoker Frequency of Alcohol Use: None Type of Drug Use: None Marital Status: Single Lives With:: Alone Functional capacity: independent ambulation Exam Vital Signs: Vital Signs Temperature 98.1 F 06/03/17 18:13 Pulse Rate 81 06/03/17 18:45 Respiratory Rate 18 06/03/17 18:45 Blood Pressure 160/87 06/03/17 18:45 O2 Sat by Pulse Oximetry 96 06/03/17 18:45 - General General appearance: alert, in no apparent distress, obese - Head Head exam: Present: atraumatic, normocephalic - Eye Eye exam: Present: PERRL, EOMI, nystagmus (mild) - ENT ENT exam: Present: mucous membranes moist. Absent: mucous membranes dry - Neck Neck exam: Present: full ROM, trachea midline - Chest Chest inspection: Present: symmetric chest wall rise - Respiratory Respiratory exam: Present: normal lung sounds bilaterally. Absent: accessory muscle use, respiratory distress, wheezes - Cardiovascular Cardiovascular exam: Present: regular rate, normal rhythm, normal heart sounds - Extremities Exam Extremities exam: Present: full ROM, pedal edema (+1). Absent: tenderness - Neurological Exam Neurological exam: Present: alert, oriented X3, CN II-XII intact. Absent: motor sensory deficit - Psychiatric Psychiatric exam: Present: normal affect, normal mood - Skin Skin exam: Present: warm, dry Course - Consultations Consultation #1: Hospitalist will admit patient Time: 21:02 Results - Labs CBC & BMP: 06/03/17 19:41 06/03/17 19:41 Lab Results: I have reviewed the patients labs Labs: Laboratory Tests 06/03/17 06/03/17 18:33 19:41 WBC 13.3 H D RBC 4.67 Hgb 13.6 D Hct 37.7 MCV 80.7 L MCHC 36.1 H Plt Count 182 Neut % (Auto) 84.8 H Lymph % (Auto) 11.2 L Neut # (Auto) 11.3 H Urine Color Straw Urine Appearance Clear Urine pH 6.0 Ur Specific [place] 1.016 Urine Glucose (UA) >=500 Urine Blood Negative Urine Nitrate Negative Urine Urobilinogen < 2.0 H Urine RBC <1 Urine WBC <1 Ur Squamous Epith Cells Occasional - Diagnostic Findings Procedure: Chest x-ray: report reviewed by me (Pulmonary hypoinflation and cardiomegaly, both stable since 2 [address]: report reviewed by me (Head wo con: No acute intracranial pathology. Generalized atrophy and changes consistent with microvascular disease.) Disposition Clinical Impression: Asthma, Generalized weakness, Nonketotic hyperglycemia, Hyponatremia Case discussed with: patient Disposition: Still a Patient Condition: Guarded Time of Disposition: 21:03
--- NOTE | 2017-06-03 19:42 | CT Report ---
CT head/brain wo con Indication: Dizziness. CT BRAIN WITHOUT CONTRAST DLP: 1012 mGy*cm. One or more of the following dose reduction techniques was used: Automated exposure control, adjustment of the mA and/or kV according the patient size, or use of iterative reconstruction techniques. Comparison: 11/29/2014. Date of admission: 06/03/2017. Technique: Axial noncontrast CT images of the brain were obtained. Findings: No acute hemorrhage, mass or mass effect. Generalized atrophy and patchy periventricular white matter hypodensity is present throughout both convexities. Cortical brandt-white junction and structures of the basal ganglia are well-defined. No bone lesions are shown. Internal auditory canals are symmetric. Visualized sinuses and mastoid air cells are clear. Impression: No acute intracranial pathology. Generalized atrophy and changes consistent with microvascular disease. PROCEDURE INTERPRETED AT [facility] DEPARTMENT OF RADIOLOGY Final Report Signed by: Pedro Luis Shearer M.D.
--- NOTE | 2017-06-03 19:48 | XRay Report ---
XR chest 1V portable Indication: Shortness of breath. Chest one view: Comparison 06/01/2017. Mild cardiomegaly, normal mediastinal contour are stable. Lungs remain hypoinflated, accentuated by obesity. They are however clear. Impression: Pulmonary hypoinflation and cardiomegaly, both stable since 2 days ago. PROCEDURE INTERPRETED AT [facility] DEPARTMENT OF RADIOLOGY Final Report Signed by: Pedro Luis Shearer M.D.
[2017-06-03] MEDS ORDERED: MECLIZINE 25 MG TABLET ONE (19:49)
[2017-06-03] MEDS ORDERED: ONDANSETRON 4 MG/2 ML VIAL ONE (19:49)
[2017-06-03] MEDS ORDERED: INSULIN REGULAR 100 UNIT/ML ONE (19:50)
[2017-06-03 19:52] LABS: Basophils % 0.1 % (0.0-0.8); Hematocrit 37.7 VOL% (35.7-47.0); Hemoglobin 13.6 GM/DL (12.0-16.0); Immature Granulocytes % 0.3 %; Immature Granulocytes Absolute 0.04 #; Lymphocytes # 1.5 10*3/uL (1.4-4.0); Lymphocytes % 11.2 % (21.3-54.2); Mean Corpuscular HGB Conc 36.1 GM/DL (32-36); Mean Corpuscular Hemoglobin 29 PG (27-34); Mean Corpuscular Volume 80.7 FL (87-102); Mean Platelet Volume 11.7 FL (9.6-12.0); Monocytes # 0.5 10*3/uL (0.11-0.8); Monocytes % 3.6 % (1.7-12.7); Neutrophils # 11.3 10*3/uL (1.4-7.4); Neutrophils % 84.8 % (38.7-73.9); Platelet Count 182 T/CUMM (130-400); Red Blood Count 4.67 MC/CUMM (3.8-5.5); Red Cell Distribution Width 12.7 % (9.3-17.3); White Blood Count 13.3 T/CUMM (4-12)
[2017-06-03 19:55] LABS: Apearance,Urine CLEAR (Clear); Bilirubin,Urine Negative (Negative); Blood, Urine Negative (Negative); Glucose,Urine (UA) >=500 mg/dL (Negative); Ketones,Urine Negative (Negative); Nitrite,Urine Negative (Negative); Protein,Urine Negative; RBC,Urine <1 /HPF (0-4); Squamous Epithelial Cell,Urine Occasional /HPF (0-10); Urine Color Straw (Yellow); Urine Specific Gravity 1.016 (1.001-1.035); Urine Urobilinogen < 2.0 EU/DL (0.2-1.0); WBC,Urine <1 /HPF (0-6)
[2017-06-03 20:16] LABS: Alanine Aminotransferase 39 U/L (13-56); Alkaline Phosphatase 144 U/L (45-117); Aspartate Amino Transferase 15 U/L (0-37); Blood Urea Nitrogen 34 MG/DL (7-18); Calcium 10.1 MG/DL (8.5-10.1); Magnesium 2.5 MG/DL (1.8-2.4); Osmolality,Calculated 290.9 MOS/KG (273-304); Potassium 4.5 MMOL/L (3.5-5.1); Sodium 129 MMOL/L (136-145); Total Protein 8.2 G/DL (6.4-8.3); Troponin I Only < 0.015 NG/ML (0.00-0.045)
[2017-06-03 20:26] LABS: Glucose 540 MG/DL (74-106)
[2017-06-03] MEDS ORDERED: GLUCAGON 1 MG VIAL IM PRN (21:54)
[2017-06-03] MEDS ORDERED: ONDANSETRON 4 MG/2 ML VIAL IV PRN (21:54)
[2017-06-03] MEDS ORDERED: DOCUSATE SODIUM 100 MG CAPSULE PO PRN (21:54)
[2017-06-03] MEDS ORDERED: DEXTROSE 50% 25 GM/50 ML SYRINGE IV PRN (21:54)
[2017-06-03] MEDS ORDERED: INSULIN DETEMIR 100 UNIT/ML SUBCUT SCH (22:30)
--- NOTE | 2017-06-03 22:44 | Hospitalist History & Physical ---
Assessment and Plan - Time spent with patient Time spent with patient: Greater than 30 minutes (1) Acute hyperglycemia Status: Acute Assessment and plan: Admit to hospitalist services. Likely due to recent use of oral steroids to treat an asthma exacerbation. Last dose of steroids was today. IV normal saline at 100 mL/h. Diabetic diet. Accu-Cheks before meals at bedtime. Sliding scale insulin before meals at bedtime. Home dose of Lantus 45 units subcu at bedtime and 65 units SQ each morning. Home dose of Humulin 70/30 20 units SQ twice daily. Recheck BMP in a.m. Current Visit: Yes (2) Hyponatremia Status: Acute Assessment and plan: Sodium level in the ED was 129. When corrected for hyperglycemia sodium is 136. IV normal saline at 100 mL/h. Recheck BMP in a.m. Current Visit: Yes (3) Asthma Status: Acute Assessment and plan: Albuterol nebs 4 times daily as needed. Symbicort 2 puffs twice daily. Benzonatate 100 mg 3 times daily as needed for cough. Singulair 10 mg every morning. O2 per unit protocol. Current Visit: Yes (4) Hypertension Status: Chronic Assessment and plan: Continue home hypertensive medications. Amlodipine 5 mg every morning. Bystolic 10 mg every morning. Spironolactone 25 mg every morning. Valsartan 160 mg every morning. Lasix 60 mg every morning. Continue to monitor fluid status. Current Visit: No (5) Congestive heart failure Status: Chronic Assessment and plan: Continue home hypertensive medications as above. Continue to monitor fluid status. Current Visit: Yes (6) Hypothyroidism Status: Chronic Assessment and plan: Continue home dose of levothyroxine 75 mcg before breakfast. Current Visit: Yes (7) Obstructive sleep apnea Status: Chronic Assessment and plan: Use CPAP while sleeping and at bedtime at home settings reported by patient to be 11. Current Visit: No (8) DVT prophylaxis Status: Acute Assessment and plan: No contraindications to pharmacologic therapy. Lovenox 40 mg SQ daily. Current Visit: Yes History of Present Illness Chief complaint: Hyperglycemia History of present illness: Ms. Mills is a 66 year old female with a history of IDDM, Liver CA, HTN, CHF, VAN, asthma, and chronic diarrhea who presented to the ED tonight with complaints of high blood sugar. Ms. Mills states that she began feeling lightheaded and sleepy. When she checked her blood sugar, it was >600. She also reports that on Wednesday of this week, she was seen in treated in the ED for asthma exacerbation, for which she was prescribed oral steroids which she has been taking and finished today. In the ED, she was found to have a BG of 540, but ketones were absent from urine. She denies nausea, vomiting, fever and chills. Hospitalist services were consulted for further evaluation and treatment , and the patient will be admitted to the medical-surgical unit. Home Medications Medication Instructions Recorded Confirmed Type Cyanocobalamin Inj [Vitamin B12 1,000 mcg SUBCUT Q30D 01/16/15 06/03/17 History Inj] Furosemide Tab [Lasix Tab] 60 mg PO QAM 01/16/15 06/03/17 History Montelukast Tab [Singulair Tab] 10 mg PO QAM 01/16/15 06/03/17 History Nebivolol [Bystolic] 10 mg PO QAM 01/16/15 06/03/17 History Spironolactone [Aldactone] 25 mg PO QAM 01/16/15 06/03/17 History Valsartan [Diovan] 160 mg PO QAM 01/16/15 06/03/17 History Insulin Detemir [Levemir] 65 unit SUBCUT QAM 07/22/15 06/03/17 History amLODIPine [Norvasc] 5 mg PO QAM 07/22/15 06/03/17 History Dicyclomine Cap/Tab [Bentyl 10 mg PO QID 07/09/16 06/03/17 History Cap/Tab] Colesevelam [Welchol] 1,875 mg PO BID W/MEALS tablet 11/18/16 06/03/17 Rx Benzonatate [Tessalon] 100 mg PO TID PRN 02/01/17 06/03/17 History Diclofenac 1% Gel [Voltaren 1% Gel] 1 applic TOP QID 02/01/17 06/03/17 History Gabapentin 100 mg PO QAM 02/01/17 06/03/17 History Levothyroxine Tab [Synthroid Tab] 75 mcg PO QAM 02/01/17 06/03/17 History Albuterol Neb [Proventil Neb] 2.5 mg RESP TX QID 05/10/17 06/03/17 History Insulin Aspart Prot/Insuln Asp 20 unit SUBCUT BID 05/10/17 06/03/17 History [NovoLOG Mix 70-30 FlexPen] Insulin Detemir [Levemir] 45 unit SUBCUT BEDTIME 05/10/17 06/03/17 History Budesonide/Formoterol 160-4.5 2 puff INH BID #7 inhaler 05/15/17 06/03/17 Rx [Symbicort 160-4.5] HYDROcodone/ACETAMIN 7.5-325 1 tablet PO Q4H PRN #20 tablet 05/15/17 06/03/17 Rx [[place] 7.5-325] Albuterol Inhaler [Proventil 2 puff INH Q4H PRN #1 inhaler 06/01/17 06/03/17 Rx Inhaler] Rifaximin [Xifaxan] 550 mg PO BID 06/01/17 06/03/17 History methylPREDNISolone DOSEPAK [Medrol 4 mg PO DAILY #21 tablet 06/01/17 06/03/17 Rx Dosepak] Allergies Allergy/AdvReac Type Severity Reaction Status Date / Time Penicillins Allergy Intermediate RASH Verified 06/01/17 13:44 aspirin AdvReac Intermediate Gastrointestinal Verified 06/01/17 13:44 Upset morphine AdvReac Intermediate Nausea Verified 06/01/17 13:44 Medical,Surgical,& Family Hx - Medical History Cardio: History of: Cardiac Dysrhythmia (tachycardia), Hypertension No history of: CO, Pacemaker Psychological: No history of: Anxiety Disorders, Depression Neurology: No history of: Cerebrovascular Accident, Seizures HEENT: No history of: Ear Problem, Eye Problem, Glaucoma Endocrine: History of: Adrenal Disease, Diabetes Mellitus (IDDM), Thyroid Disorder (hypothyroidism) Rheumatology: No history of;: Rheumatoid Arthritis Respiratory: History of: Asthma, Obstructive Sleep Apnea (sleeps with cpap), Pneumonia (2016) No history of: Bronchitis, COPD, Intubation, Pulmonary Embolism, Pulmonary Hypertension, Lung Cancer, Respiratory Problems Renal: No history of: Renal Failure, Renal Problems Genitourinary: No history of: Kidney Stones Gastrointestinal: History of: Esophageal Varices, GERD, Hepatitis (Hepatitis C) , Liver Problems (liver cancer), Gastrointestinal Cancer (Liver cancer), GI Problems (esophageal varices) Musculoskeletal: History of: Back/Neck Problems (lower back pain, KNEE PAIN) Hematology: History of: Blood Transfusion Reaction (got hepatitis c) Other: History of: Cancer (liver cancer-2014) No history of: Anesthesia Reactions - Surgical History Cardiac Surgeries: Patient Denies: Cardiac Catheterization Neurologic Surgeries: Patient denies: Neurologic Surgery HEENT Surgeries: Surgical HX of: Eye Surgery (cataract bilaterally), Tonsilectomy & Adenoidectomy Patient denies: Thyroid Surgery Abdominal Surgeries: Surgical HX of: Abdominal Surgery, Appendectomy, Cholecystectomy, Colonoscopy, EGD Patient denies: Hernia Repair Reproductive Surgeries: Surgical HX of;: Section (x 2), Hysterectomy Patient denies;: Breast Surgery Orthopedic Surgeries: Patient denies;: Orthopedic Surgery - Family History Family History: Reports;: Family Cancer (mother-breast, sister-breast), Family Diabetes (mom and dad), Family Heart Disease (father), Family Hypertension ( mother and father) Denies;: Family Anesthesia Reaction, Family Psychiatric Problems, Family Stroke - Social History Smoking Status: Never smoker Frequency of Alcohol Use: None Type of Drug Use: None Marital Status: Lives With:: Spouse Functional capacity: independent ambulation - Constitutional Constitutional: Present: daytime sleepiness. Absent: chills, fatigue, fever(s) , headache(s), lethargy, malaise, weakness - EENT Eyes: Absent: blurry vision, diplopia, loss of vision Ears: Absent: decreased hearing, ear discharge, ear pain Nose, mouth and throat: Absent: headache(s), nasal congestion, sore throat - Cardiovascular Cardiovascular: Absent: dyspnea, edema, orthopnea, palpitations - Respiratory Respiratory: Present: cough. Absent: dyspnea, wheezing - Gastrointestinal Gastrointestinal: Present: diarrhea (chronic). Absent: abdominal pain, constipation, nausea, vomiting - Genitourinary Genitourinary: Absent: dysuria, urinary frequency - Musculoskeletal Musculoskeletal: Absent: arthralgias, joint swelling, muscle weakness, myalgias - Neurological Neurological: Present: dizziness. Absent: numbness, paresthesias - Psychiatric Psychiatric: Absent: anxiety, depression - Endocrine Endocrine: Absent: cold intolerance, polydipsia, polyphagia, polyuria - Hematologic/Lymphatic Hematologic/Lymphatic: Absent: easy bleeding, easy bruising Exam - Constitutional Vitals: Period Temp Pulse Resp BP Sys/Bernabe Pulse Ox Last 24 Hr 98.1 F-98.1 F 81-92 18-20 160-162/84-87 94-96 Exam: Constitutional System: Afebrile. Awake alert and oriented 3. No distress. No tremulousness. Head: Normocephalic, atraumatic. Ears, Nose and Throat System: No pain or tenderness. No epistaxis or discharge Eyes System: Pupils equal, round, and reactive. Extraocular muscles intact. Neck: Supple, without adenopathy, No jugular venous distention. No thyromegaly, neck mass, or prior surgery apparent. Respiratory System: Chest clear to auscultation. Cardiovascular System: Heart with regular rate and rhythm. No murmur. GI System: Abdomen soft, nontender. Normo active bowel sounds present. Musculoskeletal System: limbs with no pedal edema. Full distal pulses. Normal capillary refill. Neurological System: No discernable sensory deficit. No aphasia Psychiatric System: Conversation is rational Results - Labs CBC & BMP: 06/03/17 19:41 06/03/17 19:41 Lab Results: I have reviewed the past 24 hour labs
[2017-06-04] MEDS ORDERED: BENZONATATE 100 MG CAPSULE PO PRN (00:01)
[2017-06-04] MEDS: INSULIN NPH/REGULAR 70/30 100 UNIT/ML SUBCUT SCH ×4 (00:19→22:05)
[2017-06-04] MEDS: BUDESONIDE/FORMOTEROL 160-4.5 INHALER 6 GM INH SCH ×3 (00:46→22:07)
[2017-06-04] MEDS: SODIUM CHLORIDE 0.9% 1,000 ML IV SCH ×3 (00:46→22:07)
[2017-06-04] MEDS: RIFAXIMIN 550 MG TABLET PO SCH ×3 (00:46→22:05)
--- NOTE | 2017-06-04 02:18 | EKG Report ---
Stationary ECG Study [facility] ER Test Date: 06/03/2017 8:01:38 PM Pat Name: SHERRON MONTANO Department: Room: 243 Gender: F [employer]: : 1950 Requested by: Mendoza Zeng Order Number: [id number] Mikhail MD: CARMINA RIUZ Intervals [place] Rate: 72 P: 66 SC: 163 QRS: -32 QRSD: 106 T: 2 QT: 396 QTc: 420 Interpretive Statements SINUS RHYTHM LEFT AXIS DEVIATION VOLTAGE CRITERIA FOR LVH POSSIBLE ANTERIOR MYOCARDIAL INFARCTION, PROBABLY OLD Electronically Signed On 06-04-17 17:10:18 CDT by CARMINA RUIZ [email or web address]
[2017-06-04 05:31] LABS: Basophils % 0.2 % (0.0-0.8); Eosinophils % 0.2 % (0.00-10.9); Hematocrit 34.8 VOL% (35.7-47.0); Hemoglobin 12.4 GM/DL (12.0-16.0); Immature Granulocytes % 0.5 %; Immature Granulocytes Absolute 0.05 #; Lymphocytes # 2.5 10*3/uL (1.4-4.0); Lymphocytes % 23.1 % (21.3-54.2); Mean Corpuscular HGB Conc 35.6 GM/DL (32-36); Mean Corpuscular Hemoglobin 29 PG (27-34); Mean Corpuscular Volume 80.9 FL (87-102); Mean Platelet Volume 11.5 FL (9.6-12.0); Monocytes # 0.7 10*3/uL (0.11-0.8); Neutrophils # 7.4 10*3/uL (1.4-7.4); Platelet Count 157 T/CUMM (130-400); Red Cell Distribution Width 12.8 % (9.3-17.3); White Blood Count 10.6 T/CUMM (4-12)
[2017-06-04 06:09] LABS: Osmolality,Calculated 293.1 MOS/KG (273-304); Potassium 4.5 MMOL/L (3.5-5.1)
--- NOTE | 2017-06-04 08:23 | Hospitalist Progress Note ---
Assessment and Plan - Time spent with patient Time spent with patient: Greater than 30 minutes (1) History of liver cancer Status: Acute Current Visit: No (2) Morbid obesity Status: Acute Current Visit: No (3) Asthma Status: Acute Current Visit: Yes (4) Diabetes Status: Acute Current Visit: No (5) Hypertension Status: Chronic Current Visit: No (6) Acute hyperglycemia Status: Acute Assessment and plan: We will uptitrate her insulin doses today and monitor fingerstick glucose. Continue sliding scale Continue gentle IV fluid hydration and monitoring BMP. No steroids at this time. Resume respiratory treatment with DuoNeb every 6 hourly to avoid an acute exacerbation and need for steroids. DVT prophylaxisLovenox Possible discharge tomorrow blood sugars improved. Current Visit: Yes Hospitalist: Subjective Interval history: She was admitted overnight for elevated blood glucose and possible hyperosmolar state attributed to steroid treatment during her acute asthma exacerbation. Blood sugars have improved, will continue on IV fluid hydration and insulin adjustment. She has no new complaints this morning. Her asthma seems controlled at this time. No fever. Exam - Constitutional Vitals: Period Temp Pulse Resp BP Sys/Bernabe Pulse Ox Last 24 Hr 97.5 F-98.1 F 66-92 16-20 148-172/72-98 92-98 Exam: Constitutional System: Afebrile. Awake alert and oriented 3. No distress. No tremulousness. Head: Normocephalic, atraumatic. Ears, Nose and Throat System: No pain or tenderness. No epistaxis or discharge Eyes System: Pupils equal, round, and reactive. Extraocular muscles intact. Neck: Supple, without adenopathy, No jugular venous distention. No thyromegaly, neck mass, or prior surgery apparent. Respiratory System: Chest clear to auscultation. Cardiovascular System: Heart with regular rate and rhythm. No murmur. GI System: Abdomen soft, nontender. Normo active bowel sounds present. Musculoskeletal System: limbs with no pedal edema. Full distal pulses. Normal capillary refill. Neurological System: No discernable sensory deficit. No aphasia Psychiatric System: Conversation is rational Results - Labs CBC & BMP: 06/04/17 05:19 06/04/17 05:19 Lab Results: I have reviewed the past 24 hour labs
[2017-06-04] MEDS ORDERED: INSULIN GLARGINE 100 UNIT/ML SUBCUT SCH ×4 (09:00→21:00)
[2017-06-04] MEDS ORDERED: ALBUTEROL 2.5 MG/3 ML NEB RESP TX PRN (09:00)
[2017-06-04] MEDS: COLESEVELAM 625 MG TABLET PO SCH ×2 (09:02→16:18)
[2017-06-04] MEDS: LEVOTHYROXINE 75 MCG TABLET PO SCH (09:04)
[2017-06-04] MEDS: FUROSEMIDE 20 MG TABLET PO SCH (09:04)
[2017-06-04] MEDS: SPIRONOLACTONE 25 MG TABLET PO SCH (09:07)
[2017-06-04] MEDS: DICYCLOMINE 10 MG CAPSULE PO SCH ×4 (09:07→22:05)
[2017-06-04] MEDS: VALSARTAN 160 MG TABLET PO SCH (09:07)
[2017-06-04] MEDS: PANTOPRAZOLE 40 MG TABLET PO SCH (09:08)
[2017-06-04] MEDS: amLODIPine 5 MG TABLET PO SCH (09:08)
[2017-06-04] MEDS: INSULIN LISPRO 100 UNIT/ML SUBCUT SCH ×4 (09:09→22:06)
[2017-06-04] MEDS: MONTELUKAST 10 MG TABLET PO SCH (09:09)
[2017-06-04] MEDS: ENOXAPARIN 40 MG/0.4 ML SYRINGE SUBCUT SCH (09:09)
[2017-06-04] MEDS: NEBIVOLOL 10 MG TABLET PO SCH (09:13)
[2017-06-04] MEDS: ALBUTEROL 2.5 MG/3 ML NEB RESP TX SCH ×2 (13:50→19:14)
[2017-06-05] MEDS: ALBUTEROL 2.5 MG/3 ML NEB RESP TX SCH ×2 (00:10→07:29)
[2017-06-05] MEDS: SODIUM CHLORIDE 0.9% 1,000 ML IV SCH (05:29)
[2017-06-05] MEDS: INSULIN LISPRO 100 UNIT/ML SUBCUT SCH ×2 (08:35→12:14)
[2017-06-05] MEDS: COLESEVELAM 625 MG TABLET PO SCH (08:36)
[2017-06-05] MEDS: FUROSEMIDE 20 MG TABLET PO SCH (08:36)
[2017-06-05] MEDS: PANTOPRAZOLE 40 MG TABLET PO SCH (08:36)
[2017-06-05] MEDS: DICYCLOMINE 10 MG CAPSULE PO SCH ×2 (08:36→12:14)
[2017-06-05] MEDS: LEVOTHYROXINE 75 MCG TABLET PO SCH (08:36)
[2017-06-05] MEDS: RIFAXIMIN 550 MG TABLET PO SCH (08:37)
[2017-06-05] MEDS: ENOXAPARIN 40 MG/0.4 ML SYRINGE SUBCUT SCH (08:37)
[2017-06-05] MEDS: MONTELUKAST 10 MG TABLET PO SCH (08:37)
[2017-06-05] MEDS: VALSARTAN 160 MG TABLET PO SCH (08:37)
[2017-06-05] MEDS: amLODIPine 5 MG TABLET PO SCH (08:37)
[2017-06-05] MEDS: SPIRONOLACTONE 25 MG TABLET PO SCH (08:37)
[2017-06-05] MEDS: NEBIVOLOL 10 MG TABLET PO SCH (08:37)
[2017-06-05] MEDS: INSULIN NPH/REGULAR 70/30 100 UNIT/ML SUBCUT SCH (08:43)
[2017-06-05] MEDS: BUDESONIDE/FORMOTEROL 160-4.5 INHALER 6 GM INH SCH (08:52)
--- NOTE | 2017-06-05 09:47 | Discharge Summary ---
Hospital Course - Hospital Course Hospital Course: 66-year-old lady with history of liver CA, hypertension, diabetes, CHF, sleep apnea and asthma. She was recently treated for asthma exacerbation requiring use of steroids, she then presented here for elevated blood glucose, blood glucose is greater than 600 at presentation to the emergency room. Labs did not suggest DKA as he was no acidosis or ketones she was admitted to the floor for possible hyperosmolar nonketotic state for control of blood glucose. She was started on aggressive fluid resuscitation and insulin, she responded to subcutaneous insulin, did not require IV insulin infusion. With the above management, blood sugars improved, steroids were put on hold and her respiratory status remained stable on respiratory treatment with DuoNeb. On the day of discharge, fingerstick glucose return to an acceptable range, 79, 221. Since her transient elevation of blood glucose was due to steroids, will discharge her on her usual home dose since she has been weaned of steroid. She will follow up with her primary care physician who will adjust insulin doses as needed. Rest of her hospital stay was uneventful - Time spent with patient Time with patient DS: Greater than 30 minutes Diagnosis - Discharge Diagnosis (1) History of liver cancer Status: Acute (2) Morbid obesity Status: Acute (3) Asthma Status: Acute (4) Diabetes Status: Acute (5) Hypertension Status: Chronic (6) Acute hyperglycemia Status: Acute Discharge Plan - Discharge Data Disposition: Disch To Home/Self Care Condition at Discharge: Stable Discharge Diet: diabetic diet, heart healthy Activity: resume usual activities as tolerated Hygiene: no restrictions Weight Bearing at Discharge: full weight bearing - Discharge Medications New Insulin Glargine [Lantus] 50 unit SUBCUT BEDTIME unit Pantoprazole Tab [Protonix Tab] 40 mg PO DAILY tablet Continue Montelukast Tab [Singulair Tab] 10 mg PO QAM Furosemide Tab [Lasix Tab] 60 mg PO QAM Valsartan [Diovan] 160 mg PO QAM Cyanocobalamin Inj [Vitamin B12 Inj] 1,000 mcg SUBCUT Q30D Nebivolol [Bystolic] 10 mg PO QAM Spironolactone [Aldactone] 25 mg PO QAM Insulin Detemir [Levemir] 65 unit SUBCUT QAM amLODIPine [Norvasc] 5 mg PO QAM Dicyclomine Cap/Tab [Bentyl Cap/Tab] 10 mg PO QID Levothyroxine Tab [Synthroid Tab] 75 mcg PO QAM Insulin Aspart Prot/Insuln Asp [NovoLOG Mix 70-30 FlexPen] 20 unit SUBCUT BID Albuterol Neb [Proventil Neb] 2.5 mg RESP TX QID Budesonide/Formoterol 160-4.5 [Symbicort 160-4.5] 2 puff INH BID #7 inhaler HYDROcodone/ACETAMIN 7.5-325 [[place] 7.5-325] 1 tablet PO Q4H PRN #20 tablet PRN Reason: Pain Moderate (4-7) Rifaximin [Xifaxan] 550 mg PO BID Colesevelam [Welchol] 1,875 mg PO BID W/MEALS tablet Gabapentin 100 mg PO QAM Benzonatate [Tessalon] 100 mg PO TID PRN PRN Reason: Cough Albuterol Inhaler [Proventil Inhaler] 2 puff INH Q4H PRN #1 inhaler PRN Reason: Shortness Of Breath/Wheezing Discontinued Diclofenac 1% Gel [Voltaren 1% Gel] 1 applic TOP QID methylPREDNISolone DOSEPAK [Medrol Dosepak] 4 mg PO DAILY #21 tablet Insulin Detemir [Levemir] 45 unit SUBCUT BEDTIME - Follow Up or Referral - Forms/Instructions Additional Discharge Instructions: follow up with PCP in 1-2 weeks Exam - Constitutional Vitals: Period Temp Pulse Resp BP Sys/Bernabe Pulse Ox Last 24 Hr 96.9 F-98.4 F 68-79 14-20 96-195/69-88 92-100 Discharge Results Procedures and tests throughout hospitalization: Pending Orders 06/03/17 20:00 Blood Culture Stat Labs on day of discharge: Labs from last 24 hours 06/05/17 06/04/17 06/04/17 07:53 21:19 15:26 POC Glucose 79 221 H 286 H 06/04/17 06/03/17 11:08 18:16 POC Glucose 349 H 471 H Preliminary micro results at discharge 06/03/17 20:00 Blood Culture - Preliminary Blood No growth at 1 day 06/03/17 19:41 Blood Culture - Preliminary Blood No growth at 1 day DS: Provider Date of admission: 06/03/17 21:55 Primary care physician: Umu F James, M.D. Attending physician on admission: Pedro Luis Johnson MD Discharging clinician: Oh Pool MD
[2017-06-05 12:29] VITALS: BP 146/68
--- NOTE | 2017-06-07 08:40 | Physician Query Form ---
CLICK EDIT DOCUMENT TO SELECT QUERY ANSWER --> OK --> SIGN Cinthia Santiago RN Clinical Health Care Facility Administrator W) [phone] (f) [phone] [email or web address] PROVIDERS: Make your selection(s) from the choices in EACH section by typing an "x" and enter comments in the comment section. Please use your independent medical judgment in providing your response. This request does not imply that any particular answer is desired or expected. CLINICAL INDICATORS: (Providers should not edit this section) Based on documentation of "history of CHF", BNP <2, Echo done 05/11/17 showed ejection fraction 60% with Grade 1/4 diastolic dysfunction. Pt. treated with Lasix as home medication. Please clarify the type of CHF the patient has a history of. Please provide further specificity regarding CHF. ( ) Past Medical History of Systolic CHF (x ) Past Medical History of Diastolic CHF ( ) Clinically unable to determine COMMENTS: PLEASE ALSO DOCUMENT RESPONSE IN PROGRESS NOTES AND/OR DISCHARGE SUMMARY Use of terms such as suspected, likely, or probable (associated with a specific diagnosis that is being evaluated, monitored, or treated as if it exists) are acceptable and can be restated in the discharge summary if not ruled out. [facility]
== END 2017-06-05 12:15 | disposition home or self-care (01) | DRG 637 ==
LOC: N.ED 18:06 → N.EDINP 21:55 → SUATTDRO 21:55 → N.2E 22:28
PROVIDERS: ADMIT Internal Medicine; ATTEND Internal Medicine

== ENCOUNTER 2017-07-07 19:59 | Inpatient (IN) ==
[2017-07-07] MEDS ORDERED: NITROGLYCERIN 2% OINT 1 INCH/GM PACK TOP STA (20:54)
[2017-07-07] MEDS ORDERED: ONDANSETRON 4 MG/2 ML VIAL IV STA (20:54)
[2017-07-07] MEDS ORDERED: hydrALAZINE 20 MG/1 ML VIAL IV STA (20:54)
[2017-07-07] MEDS ORDERED: CLINDAMYCIN INJ 600 MG in PREMIX 1 EACH IV STA (20:54)
[2017-07-07] MEDS ORDERED: methylPREDNISolone SOD SUC 125 MG/2 ML VIAL IV STA (20:54)
[2017-07-07] MEDS ORDERED: FUROSEMIDE 100 MG/10 ML VIAL IV STA (20:54)
--- NOTE | 2017-07-07 20:59 | Emergency Department Note ---
IMoises Emily, am scribing for, and in the presence of, Mendoza Mejia MD 20: 58. Jackie Sanz Charles R, MD, personally performed the services described in this documentation, ascribed by Poonam De Leon in my presence, and it is both accurate and complete . Arrival - Arrival Chief Complaint: Upper Respiratory Stated Complaint: cold , breathing ED Nursing Triage Note: Patient complains of a cough and asthma symptoms that have been going on for over a year. Patient denies runny nose or nasal congestion. Hx of asthma, bronchitis, CHF, HTN, DM. Mode of Arrival: Wheelchair Limitations: No Limitations Source: Patient Time Seen by Provider: 07/07/17 20:47 - History of Present Illness HPI Narrative: Pt is a 66 y/o female who came to ED with c/o cough and wheezing that has been ongoing for a year but worsened tonight. Pt reports seeing providers for these sxs with bronchiole scope with thick mucous on lungs causing chronic inflammation. Pt has associated sxs of orthopnea, urinates with every cough and elevated BP. Pt reports uses CPAP machine and has breathing machine at home. PMHx of Asthma, HTN, IDDM. Onset (ago): year(s) Consistency: constant Severity: mild, moderate Severity scale (1-10): 4 Quality: fullness Date of Last Menstrual Period: HYSTERECTOMY Allergies/Adverse Reactions: Allergies Allergy/AdvReac Type Severity Reaction Status Date / Time Penicillins Allergy Intermediate RASH Verified 07/06/17 06:24 aspirin AdvReac Intermediate Gastrointestinal Verified 07/06/17 06:24 Upset morphine AdvReac Intermediate Nausea Verified 07/06/17 06:24 Home Medications: Home Medications Medication Instructions Recorded Confirmed Type Cyanocobalamin Inj [Vitamin B12 1,000 mcg SUBCUT Q30D 01/16/15 07/07/17 History Inj] Furosemide Tab [Lasix Tab] 60 mg PO QAM 01/16/15 07/07/17 History Montelukast Tab [Singulair Tab] 10 mg PO QAM 01/16/15 07/07/17 History Insulin Detemir [Levemir] 68 unit SUBCUT QAM 07/22/15 07/07/17 History amLODIPine [Norvasc] 10 mg PO QAM 07/22/15 07/07/17 History Dicyclomine Cap/Tab [Bentyl 10 mg PO QID 07/09/16 07/07/17 History Cap/Tab] Colesevelam [Welchol] 1,875 mg PO BID W/MEALS tablet 11/18/16 07/07/17 Rx Benzonatate [Tessalon] 200 mg PO BID 02/01/17 07/07/17 History Gabapentin 100 mg PO QAM 02/01/17 07/07/17 History Levothyroxine Tab [Synthroid Tab] 100 mcg PO QAM 02/01/17 07/07/17 History Albuterol Neb [Proventil Neb] 2.5 mg RESP TX QID 05/10/17 07/07/17 History Insulin Aspart Prot/Insuln Asp 20 unit SUBCUT TID 05/10/17 07/07/17 History [NovoLOG Mix 70-30 FlexPen] Budesonide/Formoterol 160-4.5 2 puff INH BID #7 inhaler 05/15/17 07/07/17 Rx [Symbicort 160-4.5] Albuterol Inhaler [Proventil 2 puff INH Q4H PRN #1 inhaler 06/01/17 07/07/17 Rx Inhaler] Pantoprazole Tab [Protonix Tab] 40 mg PO DAILY tablet 06/05/17 07/07/17 Rx Insulin Detemir [Levemir] 52 unit SUBCUT BEDTIME 06/30/17 07/07/17 History Review of System - Review of System 12 point system: reviewed and no additional remarkable complaints except as stated - Review of System Constitutional: Absent: chills, fever, weakness Head/Ears/Nose/Throat: Absent: sore throat Respiratory: Present: cough, wheezing. Absent: respiratory distress Cardiovascular: Absent: chest pain Gastrointestinal: Absent: abdominal pain, nausea, vomiting, diarrhea, constipation Genitourinary female: Present: other (urinates with cough) Musculoskeletal: Absent: arm pain, neck pain Skin: Absent: rash Neurological: Absent: headache Medical,Surgical,& Family Hx - Medical History Cardio: History of: Cardiac Dysrhythmia (tachycardia), Hypertension, Cardiovascular Problems (DR KHAN.) No history of: [place], Pacemaker Psychological: No history of: Anxiety Disorders, Depression Neurology: No history of: Cerebrovascular Accident, Seizures HEENT: History of: Eye Problem (GLASSES), Dental Problems (UPPER DENTURE PARTIAL LOWER) No history of: Ear Problem, Glaucoma Endocrine: History of: Adrenal Disease, Diabetes Mellitus (IDDM), Thyroid Disorder (hypothyroidism) Rheumatology: History of;: Rheumatological Problems (ARTHRITIS) No history of;: Rheumatoid Arthritis Respiratory: History of: Asthma, Obstructive Sleep Apnea (sleeps with cpap), Pneumonia (), Respiratory Problems (FLU VAC- NO; PNEU VAC-NO.) No history of: Bronchitis, COPD, Intubation, Pulmonary Embolism, Pulmonary Hypertension, Lung Cancer Renal: No history of: Renal Failure, Renal Problems Genitourinary: No history of: Kidney Stones, Problems Gastrointestinal: History of: Esophageal Varices, GERD, Hepatitis (Hepatitis C) , Liver Problems (liver cancer), Gastrointestinal Cancer (Liver cancer), GI Problems (esophageal varices) Musculoskeletal: History of: Back/Neck Problems (lower back pain, KNEE PAIN) Hematology: History of: Blood Transfusion Reaction (got hepatitis c) Other: History of: Cancer (liver cancer-2013 DR KEENA GOLDBERG ALPancho) No history of: Anesthesia Reactions - Surgical History Cardiac Surgeries: Patient Denies: Cardiac Catheterization Neurologic Surgeries: Patient denies: Neurologic Surgery HEENT Surgeries: Surgical HX of: Eye Surgery (cataract bilaterally), Tonsilectomy & Adenoidectomy Patient denies: Thyroid Surgery Abdominal Surgeries: Surgical HX of: Abdominal Surgery, Appendectomy, Cholecystectomy, Colonoscopy, EGD Patient denies: Hernia Repair Reproductive Surgeries: Surgical HX of;: Section (x 2), Gynecologic Surgery, Hysterectomy Patient denies;: Breast Surgery Orthopedic Surgeries: Patient denies;: Orthopedic Surgery - Family History Family History: Reports;: Family Cancer (mother-breast, sister-breast), Family Diabetes (mom and dad), Family Heart Disease (father), Family Hypertension ( mother and father) Denies;: Family Anesthesia Reaction, Family Psychiatric Problems, Family Stroke - Social History Smoking Status: Never smoker Frequency of Alcohol Use: None Type of Drug Use: None Marital Status: Single Lives With:: Alone Functional capacity: independent ambulation Exam Vital Signs: Vital Signs Temperature 98.2 F 07/07/17 20:38 Pulse Rate 84 07/07/17 21:06 Respiratory Rate 22 07/07/17 21:06 Blood Pressure 179/85 07/07/17 20:38 O2 Sat by Pulse Oximetry 94 L 07/07/17 21:06 - General General appearance: alert, in no apparent distress, obese - Head Head exam: Present: atraumatic, normocephalic - Eye Eye exam: Present: PERRL, EOMI - ENT ENT exam: Present: mucous membranes moist. Absent: mucous membranes dry - Neck Neck exam: Present: full ROM - Chest Chest inspection: Present: symmetric chest wall rise - Respiratory Respiratory exam: Present: rales (at the base, bilaterally), wheezes (active, bilateral wheezing). Absent: normal lung sounds bilaterally, accessory muscle use - Cardiovascular Cardiovascular exam: Present: regular rate, normal rhythm, normal heart sounds - Abdominal Exam Abdominal exam: Present: soft, normal bowel sounds. Absent: tenderness - Extremities Exam Extremities exam: Present: full ROM, pedal edema (+1 BLE). Absent: tenderness - Neurological Exam Neurological exam: Present: alert, oriented X3, CN II-XII intact. Absent: motor sensory deficit - Psychiatric Psychiatric exam: Present: normal affect, normal mood - Skin Skin exam: Present: warm, dry Course - Reevaluation(s) Reevaluation #1: Patient is breathing better but she still has some wheezing and still complains of shortness of breath. Blood pressure is much lower near normal values will admit patient for observation Time: 23:43 - Consultations Consultation #1: Hospitalist will admit patient Time: 23:44 Results - Labs CBC & BMP: 07/07/17 22:48 07/07/17 22:48 Lab Results: I have reviewed the patients labs Labs: Laboratory Tests 07/07/17 22:48 MCV 82.8 L [place] # (Auto) 1.0 H Laboratory Tests 07/07/17 22:48 Glucose 143 H Alkaline Phosphatase 135 H Albumin 3.3 L Globulin 4.9 H Albumin/Globulin Ratio 0.6 L Disposition Clinical Impression: Upper respiratory infection, Bronchitis, Diabetes, Asthma with exacerbation, Morbid obesity, Obstructive sleep apnea, Acute dyspnea, Hypertensive urgency, CHF (congestive heart failure) Case discussed with: patient, patient's family Disposition: Still a Patient Condition: Stable Time of Disposition: 23:45
[2017-07-07] MEDS ORDERED: ALBUTEROL 2.5 MG/3 ML NEB RESP TX SCH (21:00)
--- NOTE | 2017-07-07 21:29 | Order Completion Report ---
See report scanned to EMR
[2017-07-07] MEDS ORDERED: NITROGLYCERIN 2% OINT 1 INCH/GM PACK TOP ONE (21:44)
[2017-07-07] MEDS ORDERED: hydrALAZINE 20 MG/1 ML VIAL ONE (21:44)
[2017-07-07] MEDS ORDERED: CLINDAMYCIN INJ 50 ML IV ONE (21:45)
[2017-07-07] MEDS ORDERED: FUROSEMIDE 20 MG/2 ML VIAL ONE (21:45)
[2017-07-07] MEDS ORDERED: ONDANSETRON 4 MG/2 ML VIAL ONE (21:45)
[2017-07-07] MEDS ORDERED: methylPREDNISolone SOD SUC 125 MG/2 ML VIAL ONE (21:45)
[2017-07-07] MEDS ORDERED: FUROSEMIDE 40 MG/4 ML VIAL ONE (21:45)
[2017-07-07 22:58] LABS: Basophils % 0.3 % (0.0-0.8); Eosinophils # 0.4 10*3/uL (0.0-0.87); Eosinophils % 3.8 % (0.00-10.9); Hematocrit 37.9 VOL% (35.7-47.0); Hemoglobin 13.4 GM/DL (12.0-16.0); Immature Granulocytes % 0.2 %; Immature Granulocytes Absolute 0.02 #; Lymphocytes # 3.6 10*3/uL (1.4-4.0); Lymphocytes % 33.6 % (21.3-54.2); Mean Corpuscular HGB Conc 35.4 GM/DL (32-36); Mean Corpuscular Hemoglobin 29 PG (27-34); Mean Corpuscular Volume 82.8 FL (87-102); Mean Platelet Volume 10.9 FL (9.6-12.0); Monocytes % 9.6 % (1.7-12.7); Neutrophils # 5.6 10*3/uL (1.4-7.4); Neutrophils % 52.5 % (38.7-73.9); Platelet Count 194 T/CUMM (130-400); Red Blood Count 4.58 MC/CUMM (3.8-5.5); Red Cell Distribution Width 13.1 % (9.3-17.3); White Blood Count 10.7 T/CUMM (4-12)
[2017-07-07 23:10] LABS: PT Patient Result 10.1 SECS
[2017-07-07 23:30] LABS: Alanine Aminotransferase 39 U/L (13-56); Albumin 3.3 G/DL (3.4-5.0); Alkaline Phosphatase 135 U/L (45-117); Aspartate Amino Transferase 31 U/L (0-37); Blood Urea Nitrogen 17 MG/DL (7-18); Calcium 9.2 MG/DL (8.5-10.1); Glucose 143 MG/DL (74-106); Magnesium 1.8 MG/DL (1.8-2.4); Osmolality,Calculated 282.4 MOS/KG (273-304); Potassium 3.9 MMOL/L (3.5-5.1); Sodium 140 MMOL/L (136-145); Total Protein 8.2 G/DL (6.4-8.3); Troponin I Only < 0.015 NG/ML (0.00-0.045)
--- NOTE | 2017-07-08 01:18 | Hospitalist History & Physical ---
Assessment and Plan - Time spent with patient Time spent with patient: Less than 30 minutes (1) Asthma with exacerbation Status: Acute Assessment and plan: Mild improvement with continuous nebs for 1 hour Current oxygen saturations are 98% on room air We will admit on monitor bed Continue Solu-Medrol 60 mg IV every 12 hours Continue home medications DuoNeb breathing treatments every 4 and as needed Consult pulmonology due to establishment with Dr. Shimon Mackay and Wesly for cough Patient afebrile with no leukocytosis. We will hold antibiotic therapy for now Current Visit: Yes (2) Diabetes Status: Acute Assessment and plan: We will place patient on high dose sliding scale insulin and Accu-Cheks every 6 as needed until steroids are weaned Current Visit: Yes (3) Hypertension Status: Chronic Current Visit: No (4) Morbid obesity Status: Acute Current Visit: Yes History of Present Illness Chief complaint: shortness of breath History of present illness: Called to the ER for Ms. Mills who is a 66 year old female who presents to the emergency room complaining of shortness of breath, wheezing, dry cough 3 days. Patient has a long-standing history of COPD and asthma and is followed by Dr. Robins. On July 06, 2017 she received a fiberoptic bronchoscopy that showed erosive friable bronchitis in the left upper lung and left lower lung, nocturnal GERD with microaspiration, and sputum retention with ineffective cough. Pathology reports benign respiratory epithelium with market elevation in squamous metaplasia. Dr. Vergara recommended her to take Tessalon Perles for the cough and Mucinex. At home she has taken multiple breathing treatments without improvement of her symptoms. She decided to come to the emergency room. While here she was placed on continuous breathing treatments for approximately 1 hour with some improvement in her breathing however she still felt like she was wheezing. She was given clindamycin 600 mg IV, nitroglycerin topical, hydralazine, Lasix, Zofran, and Solu-Medrol 125 mg IV. She is having good results with the Lasix. CHF is a new diagnosis for her and has an appointment on July [address] Conti. Additional history includes hypertension, diabetes, obstructive sleep apnea, incontinence, liver cancer, hypothyroidism, history of hepatitis C, arthritis, appendectomy, cholecystectomy, hysterectomy, and 2 sections. Her family doctor is Dr. Ramirez. She will be admitted into inpatient, received breathing treatments and IV steroids, pulmonology consultation, and hydration. At this time I do not believe it is her congestive heart failure because her BNP was negative. Home medications were reviewed and reconciled as appropriate Home Medications Medication Instructions Recorded Confirmed Type Cyanocobalamin Inj [Vitamin B12 1,000 mcg SUBCUT Q30D 01/16/15 07/07/17 History Inj] Furosemide Tab [Lasix Tab] 60 mg PO QAM 01/16/15 07/07/17 History Montelukast Tab [Singulair Tab] 10 mg PO QAM 01/16/15 07/07/17 History Insulin Detemir [Levemir] 68 unit SUBCUT QAM 07/22/15 07/07/17 History amLODIPine [Norvasc] 10 mg PO QAM 07/22/15 07/07/17 History Dicyclomine Cap/Tab [Bentyl 10 mg PO QID 07/09/16 07/07/17 History Cap/Tab] Colesevelam [Welchol] 1,875 mg PO BID W/MEALS tablet 11/18/16 07/07/17 Rx Benzonatate [Tessalon] 200 mg PO BID 02/01/17 07/07/17 History Gabapentin 100 mg PO QAM 02/01/17 07/07/17 History Levothyroxine Tab [Synthroid Tab] 100 mcg PO QAM 02/01/17 07/07/17 History Albuterol Neb [Proventil Neb] 2.5 mg RESP TX QID 05/10/17 07/07/17 History Insulin Aspart Prot/Insuln Asp 20 unit SUBCUT TID 05/10/17 07/07/17 History [NovoLOG Mix 70-30 FlexPen] Budesonide/Formoterol 160-4.5 2 puff INH BID #7 inhaler 05/15/17 07/07/17 Rx [Symbicort 160-4.5] Albuterol Inhaler [Proventil 2 puff INH Q4H PRN #1 inhaler 06/01/17 07/07/17 Rx Inhaler] Pantoprazole Tab [Protonix Tab] 40 mg PO DAILY tablet 06/05/17 07/07/17 Rx Insulin Detemir [Levemir] 52 unit SUBCUT BEDTIME 06/30/17 07/07/17 History Allergies Allergy/AdvReac Type Severity Reaction Status Date / Time Penicillins Allergy Intermediate RASH Verified 07/06/17 06:24 aspirin AdvReac Intermediate Gastrointestinal Verified 07/06/17 06:24 Upset morphine AdvReac Intermediate Nausea Verified 07/06/17 06:24 Medical,Surgical,& Family Hx - Medical History Cardio: History of: Cardiac Dysrhythmia (tachycardia), CHF, Hypertension, Cardiovascular Problems (DR CONTI.) No history of: [place], Pacemaker Psychological: No history of: Anxiety Disorders, Depression Neurology: No history of: Cerebrovascular Accident, Migraine, Seizures, TIA HEENT: History of: Eye Problem (GLASSES), Dental Problems (UPPER DENTURE PARTIAL LOWER) No history of: Ear Problem, Glaucoma Endocrine: History of: Diabetes Mellitus (IDDM), Dyslipidemia, Thyroid Disorder (hypothyroidism) Rheumatology: History of;: Rheumatological Problems (ARTHRITIS) No history of;: Rheumatoid Arthritis Respiratory: History of: Asthma, Obstructive Sleep Apnea (sleeps with cpap), Pneumonia (), Respiratory Problems (FLU VAC- NO; PNEU VAC-NO.) No history of: Bronchitis, COPD, Intubation, Pulmonary Embolism, Pulmonary Hypertension, Lung Cancer Renal: No history of: Renal Failure, Renal Problems Genitourinary: History of: Bladder Problem (incontinence) No history of: Kidney Stones, Problems Gastrointestinal: History of: Esophageal Varices, GERD, Hepatitis (Hepatitis C) , Liver Problems (liver cancer), Gastrointestinal Cancer (Liver cancer), GI Problems (esophageal varices) Musculoskeletal: History of: Back/Neck Problems (lower back pain, KNEE PAIN) Hematology: History of: Blood Transfusion Reaction (got hepatitis c) Other: History of: Cancer (liver cancer-2013 DR KEENA GOLDBERG ALPancho) No history of: Anesthesia Reactions - Surgical History Cardiac Surgeries: Patient Denies: Cardiac Catheterization Neurologic Surgeries: Patient denies: Neurologic Surgery HEENT Surgeries: Surgical HX of: Eye Surgery (cataract bilaterally), Tonsilectomy & Adenoidectomy Patient denies: Thyroid Surgery Abdominal Surgeries: Surgical HX of: Abdominal Surgery, Appendectomy, Cholecystectomy, Colonoscopy, EGD Patient denies: Hernia Repair Reproductive Surgeries: Surgical HX of;: Section (x 2), Gynecologic Surgery, Hysterectomy Patient denies;: Breast Surgery Orthopedic Surgeries: Patient denies;: Orthopedic Surgery - Family History Family History: Reports;: Family Cancer (mother-breast, sister-breast), Family Diabetes (mom and dad), Family Heart Disease (father), Family Hypertension ( mother and father) Denies;: Family Anesthesia Reaction, Family Psychiatric Problems, Family Stroke - Social History Smoking Status: Never smoker Frequency of Alcohol Use: None Type of Drug Use: None Marital Status: Single Lives With:: Alone Functional capacity: independent ambulation - Constitutional Constitutional: Absent: anorexia, chills, fatigue, fever(s), weakness - EENT Eyes: Absent: blurry vision Ears: Absent: decreased hearing, tinnitus Nose, mouth and throat: Absent: headache(s), sore throat - Cardiovascular Cardiovascular: Present: dyspnea, dyspnea on exertion. Absent: chest pain at rest, chest pain with activity, edema, orthopnea, palpitations - Respiratory Respiratory: Present: cough, dyspnea, wheezing. Absent: hemoptysis - Gastrointestinal Gastrointestinal: Present: change in bowel habits, constipation, diarrhea, nausea, vomiting. Absent: abdominal pain - Genitourinary Genitourinary: Absent: abnormal vaginal bleeding - Musculoskeletal Musculoskeletal: Absent: joint swelling, limited range of motion - Neurological Neurological: Absent: abnormal gait - Psychiatric Psychiatric: Absent: anxiety Exam - Constitutional Vitals: Period Temp Pulse Resp BP Sys/Bernabe Pulse Ox Last 24 Hr 98.2 F-98.2 F 82-84 22-22 179-179/85-85 94-95 General appearance: mild distress, morbidly obese - Head Head exam: Present: normal inspection, normocephalic - Eye Eye exam: Present: EOMI Pupils: Present: CHRISTY - ENT ENT exam: Present: normal exam - Neck Neck exam: Present: normal inspection - Respiratory Respiratory exam: Present: rhonchi (Lower bases). Absent: accessory muscle use - Cardiovascular Cardiovascular exam: Present: regular rate and rhythm. Absent: diastolic murmur , systolic murmur - GI/Abdominal GI/Abdominal exam: Present: normal bowel sounds, soft. Absent: distended, tenderness - Extremities Exam Extremities exam: Present: normal inspection, normal capillary refill, full ROM. Absent: edema - Neurological Exam Neurological exam: Present: alert, oriented X3 (Makes good eye contact. Able to answer questions appropriately.) - Psychiatric Psychiatric exam: Present: normal affect, normal mood - Skin Skin exam: Present: normal color, warm, dry, intact Results - Labs CBC & BMP: 07/07/17 22:48 07/07/17 22:48 Lab Results: I have reviewed the past 24 hour labs
[2017-07-08] MEDS ORDERED: GLUCAGON 1 MG VIAL IM PRN (01:25)
[2017-07-08] MEDS ORDERED: ALBUTEROL/IPRATROPIUM 3 ML NEB RESP TX PRN (01:25)
[2017-07-08] MEDS ORDERED: ACETAMINOPHEN 325 MG TABLET PO PRN (01:25)
[2017-07-08] MEDS ORDERED: ONDANSETRON 4 MG/2 ML VIAL IV PRN (01:25)
[2017-07-08] MEDS ORDERED: DEXTROSE 50% 25 GM/50 ML SYRINGE IV PRN (01:25)
[2017-07-08] MEDS: SODIUM CHLORIDE 0.9% 1,000 ML IV SCH ×2 (02:14→16:39)
[2017-07-08] MEDS: MONTELUKAST 10 MG TABLET PO SCH ×2 (02:31→20:46)
[2017-07-08] MEDS: methylPREDNISolone SOD SUC 40 MG/1 ML VIAL IV SCH ×2 (02:31→14:12)
[2017-07-08] MEDS: INSULIN LISPRO 100 UNIT/ML SUBCUT SCH ×4 (02:37→17:08)
[2017-07-08] MEDS: ALBUTEROL/IPRATROPIUM 3 ML NEB RESP TX SCH ×6 (03:36→23:40)
[2017-07-08 03:48] LABS: Apearance,Urine CLEAR (Clear); Bilirubin,Urine Negative (Negative); Blood, Urine Negative (Negative); Glucose,Urine (UA) Negative (Negative); Hyaline Casts,Urine 5 /LPF (0-3); Ketones,Urine Negative (Negative); Mucus,Urine Occasional /LPF (Occasional); Nitrite,Urine Negative (Negative); Protein,Urine Negative; Urine Color Straw (Yellow); Urine Specific Gravity 1.006 (1.001-1.035); Urine Urobilinogen < 2.0 EU/DL (0.2-1.0); WBC,Urine <1 /HPF (0-6)
[2017-07-08] MEDS: LEVOTHYROXINE 100 MCG TABLET PO SCH (06:12)
--- NOTE | 2017-07-08 07:44 | XRay Report ---
History: Shortness of breath Date: 07/07/2017 Study: Chest x-ray AP portable Comparison exam: June 03, 2017 The cardiac silhouette is minimally prominent, though unchanged. The mediastinal contours are stable. There is no gross layering pleural effusion. The pulmonary vasculature is not grossly engorged. There is some minor platelike subsegmental atelectasis in the right lower lung. The lungs are otherwise grossly clear for shallow breath. Osseous structures are unchanged with mild to moderate thoracic spondylosis. Impression: Mild platelike subsegmental atelectasis right lower lung. Stable mild cardiomegaly. Otherwise grossly unchanged when accounting for shallow breath PROCEDURE INTERPRETED AT [facility] DEPARTMENT OF RADIOLOGY Final Report Signed by: Dr. Michaelle Voss
[2017-07-08] MEDS: COLESEVELAM 625 MG TABLET PO SCH ×2 (08:33→16:38)
[2017-07-08] MEDS: ENOXAPARIN 40 MG/0.4 ML SYRINGE SUBCUT SCH (08:34)
[2017-07-08] MEDS: FUROSEMIDE 20 MG TABLET PO SCH (08:34)
[2017-07-08] MEDS: GABAPENTIN 100 MG CAPSULE PO SCH (08:34)
[2017-07-08] MEDS: amLODIPine 10 MG TABLET PO SCH (08:34)
[2017-07-08] MEDS: PANTOPRAZOLE 40 MG TABLET PO SCH (08:34)
[2017-07-08] MEDS: guaiFENesin/DM ER 600-30 MG TABLET PO PRN ×2 (08:35→20:45)
[2017-07-08] MEDS ORDERED: BENZONATATE 100 MG CAPSULE PO SCH (09:00)
[2017-07-08] MEDS ORDERED: BUDESONIDE/FORMOTEROL 160-4.5 INHALER 6 GM INH SCH (09:00)
[2017-07-08] MEDS ORDERED: LIDOCAINE 4% TOP SOLN 50 ML BOTTLE RESP TX PRN (10:33)
[2017-07-08] MEDS: DORNASE ALFA 2.5 MG/2.5 ML VIAL RESP TX SCH ×2 (10:41→19:30)
--- NOTE | 2017-07-08 10:59 | Pulmonology Consult Note ---
History of Present Illness Chief complaint: Asthma. Gastroesophageal reflux. Wheezing. History of present illness: Devyn Harkins, [facility], acting as scribe for Dr. Wan Vergara Mrs. Mills is a 66-year-old -[place] female who we have been asked to see in pulmonary consultation for evaluation and treatment. The request for consultation was made by Dr. Johnson. This patient was previously followed from a pulmonary standpoint by Dr. Vladimir Causey. She is followed from a pulmonary care standpoint by Dr. Umu Ramirez from a GI standpoint by Dr. Jose Angel Krause. She also sees Dr. Leon at [facility] secondary to a history of liver cancer. She was seen as a new patient by Dr. Vergara on 06/30/2017. Her initial visit with Dr. Vergara she complained of a cough that has been present for 1 year. At that time, the etiology was undetermined, but it was suspected that this is secondary to silent gastric esophageal reflux with microaspiration. On 07/06/2017 the patient underwent fiberoptic bronchoscopy. This showed COPD with collapsible large and small airways and partial collapsibility of the trachea, erosive friable left upper lung and left lower lobe bronchitis, sputum retention ineffective cough, and gastroesophageal reflux disease. It is felt her chronic cough was secondary to COPD, retained secretions, and probably secondary also to silent nocturnal gastric esophageal reflux with microaspiration. Bronchoscopy lavage cultures grew no organisms. There is no AFB or fungus seen on smears. Cytology was reported as class II. The patient presented to [place] ER last night with complaints of cough and wheezing. She states that at the onset of her symptoms she was "just sitting in a chair". She was awake by her report. She was treated with a multitude of things in the ER and only minimally improved by her report. She was subsequently admitted to the hospitalist's service for further evaluation and care. She was seen today along with 2 females and Yeni Recinos RN. She states that she is breathing better now, but still feels short of breath. She is no longer wheezing, however. She denies any cardiac angina or palpitations. She denies reflux or dysphasia. There is been no bleeding from any site. No TIA symptoms or syncope. No change in bowel or bladder habits. All other systems are reviewed and were negative. Allergies: Aspirin, morphine, and penicillin Medications: See list Past medical history: Obstructive sleep apnea, chronic hepatitis C, history of hepatocellular carcinoma of the liver (right hepatic lobe status post TACE 2012 and microwave ablation June 2013), cirrhosis of the liver secondary to hepatitis C, hepatitis C secondary to blood transfusion, COPD/asthma, degenerative joint disease, insulin dependent diabetes mellitus, diverticulosis , gastric esophageal reflux disease, high blood pressure, hypothyroidism, morbid obesity. Social history: The patient has never used tobacco. Her son, Teto Mills, lives in [place], [place]. His phone number is [phone]. Family history: Mother and sister had breast cancer. Mother had colon cancer. Mother and father had diabetes mellitus. Uncle had tuberculosis. Father and sister had heart attack. Past procedures: Mammogram 06/24/2017 showed no evidence of malignancy. Bronchoscopy 07/06/2017 as above. Pulmonary function test on 03/09/2017 showed: 1. Small airways disease. FEF 25/75 was 67%. Note that FEV1/FVC was 85%. 2. Small pockets of bronchodilator effect. 2% improvement in FVC. 3. DLCO 46%. DLCO/VA of 143%. 4. Restrictive lung disease is present. FVC is 1.25 L or 46% of predicted. Based on x-ray and physical exam, this appears to be related to body habitus. The patient is 62 inches tall, weighs 237 pounds, and is morbidly obese. Bronchoscopy 10/30/2016 at [facility] by Dr. Causey. This was for evaluation of right middle lung infiltrate. No abnormalities were noted. Fiberoptic bronchoscopy October [address] Vergara. The patient was found to have non-resolving right upper lung and right lower lobe infiltrative lesion with endobronchial erythema and friability in the left upper lung, the right upper lung and right middle lung. Bronchoscopy specimens were negative for bacteria, AFB, and fungus. Cytologies were class I and class II. Laboratory: At admission, white count is 10,700 with 52.5% segs, 33.6% lymphs, 9.6% monos; H&H 13.4/37.9 with normal indices and normal red blood cell distribution with; platelet count 194,000; INR 1.0; d-dimer less than 0.5; creatinine 0.90, BUN 17, sodium 140, potassium 3.9, magnesium 1.8; calcium 9.2, albumin 3.3, total protein 8.2; liver function test within normal limits; troponin less than 0.015; urinalysis showed no evidence of infection; hemoglobin A1c 8.9% showing poor control of her diabetes mellitus Home Medications Medication Instructions Recorded Confirmed Type Cyanocobalamin Inj [Vitamin B12 1,000 mcg SUBCUT Q30D 01/16/15 07/07/17 History Inj] Furosemide Tab [Lasix Tab] 60 mg PO QAM 01/16/15 07/08/17 History Montelukast Tab [Singulair Tab] 10 mg PO QAM 01/16/15 07/08/17 History Insulin Detemir [Levemir] 68 unit SUBCUT QAM 07/22/15 07/08/17 History amLODIPine [Norvasc] 10 mg PO QAM 07/22/15 07/08/17 History Dicyclomine Cap/Tab [Bentyl 10 mg PO QID 07/09/16 07/08/17 History Cap/Tab] Colesevelam [Welchol] 1,875 mg PO BID W/MEALS tablet 11/18/16 07/08/17 Rx Benzonatate [Tessalon] 200 mg PO BID 02/01/17 07/08/17 History Gabapentin 100 mg PO QAM 02/01/17 07/08/17 History Levothyroxine Tab [Synthroid Tab] 100 mcg PO QAM 02/01/17 07/08/17 History Albuterol Neb [Proventil Neb] 2.5 mg RESP TX QID 05/10/17 07/08/17 History Insulin Aspart Prot/Insuln Asp 20 unit SUBCUT TID 05/10/17 07/08/17 History [NovoLOG Mix 70-30 FlexPen] Budesonide/Formoterol 160-4.5 2 puff INH BID #7 inhaler 05/15/17 07/07/17 Rx [Symbicort 160-4.5] Albuterol Inhaler [Proventil 2 puff INH Q4H PRN #1 inhaler 06/01/17 07/08/17 Rx Inhaler] Pantoprazole Tab [Protonix Tab] 40 mg PO DAILY tablet 06/05/17 07/08/17 Rx Insulin Detemir [Levemir] 52 unit SUBCUT BEDTIME 06/30/17 07/08/17 History Allergies Allergy/AdvReac Type Severity Reaction Status Date / Time Penicillins Allergy Intermediate RASH Verified 07/06/17 06:24 aspirin AdvReac Intermediate Gastrointestinal Verified 07/06/17 06:24 Upset morphine AdvReac Intermediate Nausea Verified 07/06/17 06:24 Exam (Pulmonay) H&P - Constitutional Vitals: Period Temp Pulse Resp BP Sys/Bernabe Pulse Ox Last 24 Hr 97.7 F-98.2 F 77-87 18-22 140-179/78-85 92-99 Exam: Psych: Oriented x 3 HEENT: Pupils, irises, sclera, conjunctiva, and eyelids are normal. The face is symmetrical without rash or masses. Lips, tongue, buccal mucosa, soft and hard palates, and pharynx are WNL . Neck: Symmetrical. Thyroid was not palpated. Lymphatics: No submandibular, cervical, or supraclavicular adenopathy Chest: Symmetrical. Inspiratory excursion was limited by body habitus. No appreciable wheeze. Breasts: Deferred CV: Heart sounds were distant. No appreciable murmur, rub or gallop. Arterial: Carotids with decreased and without bruit. Upper extremity pulses were palpable. Lower extremity pulses were nonpalpable, but I see no evidence of ischemia. Venous: Exam of the neck, upper, and lower extremities is normal Abd: The abdomen is obese, but nontender and nondistended; bowel sounds are positive 4; the aorta was not palpated /Rectal: Deferred Extremities: No clubbing, cyanosis, edema, or obvious DVT Skin: No cancerous or infectious lesions of the exposed, examined skin; the perineal area was not examined M/S: Age appropriate loss of the normal curvature of the cervical, thoracic, and lumbar spine Neurological: Cranial nerves are intact, Long tract motor function is intact; Sensory exam was not done; gait was not tested. The remainder of the exam was noncontributory. Impression: #1: Chronic cough for 1 year secondary to COPD, retained secretions, and gastroesophageal reflux with silent microaspiration #2: Asthma with acute exacerbation #3: High blood pressure #4: Insulin-dependent diabetes mellitus #5: History of cancer of the liver followed by Dr. Krause and Dr. Leon [facility] #6: Hypothyroidism #7: Pernicious anemia #8: Morbid obesity #9: Hyperlipidemia #10: Degenerative joint disease #11: Obstructive sleep apnea #12: See past history Plan: #1: Start Pulmozyme inhaled twice daily #2: Increase Tessalon 200 mg 3 times daily #3: Start Mucinex 600 mg twice daily #4: Start Xylocaine nebulized 3 times daily and as needed after DuoNeb treatment #5: Barium swallow #6: See orders We appreciate this consult and will follow along with you. Medical,Surgical,& Family Hx - Medical History Cardio: History of: Cardiac Dysrhythmia (tachycardia), CHF, Hypertension, Cardiovascular Problems (DR KHAN.) No history of: [place], Pacemaker Psychological: No history of: Anxiety Disorders, Depression Neurology: No history of: Cerebrovascular Accident, Migraine, Seizures, TIA HEENT: History of: Eye Problem (GLASSES), Dental Problems (UPPER DENTURE PARTIAL LOWER) No history of: Ear Problem, Glaucoma Endocrine: History of: Adrenal Disease, Diabetes Mellitus (IDDM), Dyslipidemia, Thyroid Disorder (hypothyroidism) Rheumatology: History of;: Rheumatological Problems (ARTHRITIS) No history of;: Rheumatoid Arthritis Respiratory: History of: Asthma, Obstructive Sleep Apnea (sleeps with cpap), Pneumonia (), Respiratory Problems (FLU VAC- NO; PNEU VAC-NO.) No history of: Bronchitis, COPD, Intubation, Pulmonary Embolism, Pulmonary Hypertension, Lung Cancer Renal: No history of: Renal Failure, Renal Problems Genitourinary: History of: Bladder Problem (incontinence) No history of: Kidney Stones, Problems Gastrointestinal: History of: Esophageal Varices, GERD, Hepatitis (Hepatitis C) , Liver Problems (liver cancer), Gastrointestinal Cancer (Liver cancer), GI Problems (esophageal varices) Musculoskeletal: History of: Back/Neck Problems (lower back pain, KNEE PAIN) Hematology: History of: Blood Transfusion Reaction (got hepatitis c) Other: History of: Cancer (liver cancer-2013 [place]. F[place]) No history of: Anesthesia Reactions - Surgical History Cardiac Surgeries: Patient Denies: Cardiac Catheterization Neurologic Surgeries: Patient denies: Neurologic Surgery HEENT Surgeries: Surgical HX of: Eye Surgery (cataract bilaterally), Tonsilectomy & Adenoidectomy Patient denies: Thyroid Surgery Abdominal Surgeries: Surgical HX of: Abdominal Surgery, Appendectomy, Cholecystectomy, Colonoscopy, EGD Patient denies: Hernia Repair Reproductive Surgeries: Surgical HX of;: Section (x 2), Gynecologic Surgery, Hysterectomy Patient denies;: Breast Surgery Orthopedic Surgeries: Patient denies;: Orthopedic Surgery - Family History Family History: Reports;: Family Cancer (mother-breast, sister-breast), Family Diabetes (mom and dad), Family Heart Disease (father), Family Hypertension ( mother and father) Denies;: Family Anesthesia Reaction, Family Psychiatric Problems, Family Stroke - Social History Smoking Status: Never smoker Frequency of Alcohol Use: None Type of Drug Use: None Results - Labs CBC & BMP: 07/07/17 22:48 07/07/17 22:48
[2017-07-08] MEDS: CLINDAMYCIN INJ 300 MG in PREMIX 1 EACH IV SCH ×3 (11:55→23:55)
[2017-07-08] MEDS: LEVOFLOXACIN INJ 500 MG in PREMIX 1 EACH IV SCH (12:35)
[2017-07-08] MEDS: BENZONATATE 100 MG CAPSULE PO SCH ×2 (14:12→20:46)
[2017-07-08] MEDS: LIDOCAINE 4% TOP SOLN 50 ML BOTTLE RESP TX SCH ×2 (15:00→23:40)
[2017-07-08] MEDS: INSULIN ASPART PROTAMINE/ASPART 70/30 100 UNIT/ML SUBCUT SCH (17:07)
[2017-07-08] MEDS: INSULIN GLARGINE 100 UNIT/ML SUBCUT SCH (20:43)
[2017-07-09] MEDS: INSULIN LISPRO 100 UNIT/ML SUBCUT SCH ×5 (00:05→23:32)
[2017-07-09] MEDS: methylPREDNISolone SOD SUC 40 MG/1 ML VIAL IV SCH ×2 (01:36→13:26)
[2017-07-09] MEDS: ALBUTEROL/IPRATROPIUM 3 ML NEB RESP TX SCH ×6 (02:07→23:15)
[2017-07-09] MEDS: CLINDAMYCIN INJ 300 MG in PREMIX 1 EACH IV SCH ×4 (05:13→23:30)
[2017-07-09] MEDS: LEVOTHYROXINE 100 MCG TABLET PO SCH (06:48)
[2017-07-09 07:30] LABS: Free T4 (Free Thyroxine) 1.15 NG/DL (0.76-1.46); Thyroid Stimulating Hormone 0.339 uIU/ml (0.358-3.74)
[2017-07-09] MEDS: DORNASE ALFA 2.5 MG/2.5 ML VIAL RESP TX SCH ×2 (07:59→19:31)
[2017-07-09] MEDS: LIDOCAINE 4% TOP SOLN 50 ML BOTTLE RESP TX SCH ×3 (08:00→23:15)
[2017-07-09] MEDS ORDERED: GLUCAGON 1 MG VIAL IM PRN (09:35)
[2017-07-09] MEDS ORDERED: DEXTROSE 50% 25 GM/50 ML VIAL IV PRN (09:35)
[2017-07-09] MEDS: INSULIN ASPART PROTAMINE/ASPART 70/30 100 UNIT/ML SUBCUT SCH ×3 (09:39→17:21)
--- NOTE | 2017-07-09 09:58 | Fluoroscopy Report ---
Exam: FL barium swallow Date: 07/09/2017 8:00 AM Comparison: None Indication: Coughing with reflux esophagitis Technique:[Fluoroscopy, 2.33 minutes documented. 34 fluoroscopy images were obtained. Films were obtained with fluoroscopy grab technique to reduce radiation.] Findings: Under fluoroscopic control, the patient swallowed barium without difficulty. Minimal indentation on the cervical esophagus by the cricopharyngeus muscle. Minimal tertiary contractions of esophagus. Small sliding-type hiatal hernia with minimal gastroesophageal reflux. No significant stricture is identified. Impression: Minimal indentation on the cervical esophagus by the cricopharyngeus muscle. Minimal tertiary contractions. Small sliding-type hiatal hernia with minimal gastroesophageal reflux. No significant stricture or definite mass. PROCEDURE INTERPRETED AT [facility] DEPARTMENT OF RADIOLOGY Final Report Signed by: Dr. Rimma Merritt
[2017-07-09] MEDS: INSULIN GLARGINE 100 UNIT/ML SUBCUT SCH ×2 (10:14→21:14)
[2017-07-09] MEDS: COLESEVELAM 625 MG TABLET PO SCH ×2 (10:14→17:20)
[2017-07-09] MEDS: SODIUM CHLORIDE 0.9% 1,000 ML IV SCH ×2 (10:15→21:15)
[2017-07-09] MEDS: FUROSEMIDE 20 MG TABLET PO SCH (10:47)
[2017-07-09] MEDS: BENZONATATE 100 MG CAPSULE PO SCH ×3 (10:47→21:15)
[2017-07-09] MEDS: GABAPENTIN 100 MG CAPSULE PO SCH (10:47)
[2017-07-09] MEDS: amLODIPine 10 MG TABLET PO SCH (10:47)
[2017-07-09] MEDS: PANTOPRAZOLE 40 MG TABLET PO SCH (10:47)
[2017-07-09] MEDS: ENOXAPARIN 40 MG/0.4 ML SYRINGE SUBCUT SCH (10:48)
--- NOTE | 2017-07-09 11:47 | Pulmonology Progress Note ---
Pulmonary - PN: Subj Interval history: Devyn Harkins, [facility]-, acting as scribe for Dr. Wan Vergara Ms. Mills is a 66-year-old -[place] female who we saw in initial pulmonary consultation 07/08/2017. At that time, our impressions were: #1: Chronic cough for 1 year secondary to COPD, retained secretions, and gastroesophageal reflux with silent microaspiration #2: Asthma with acute exacerbation #3: High blood pressure #4: Insulin-dependent diabetes mellitus #5: History of cancer of the liver followed by Dr. Krause and Dr. Leon [facility] #6: Hypothyroidism #7: Pernicious anemia #8: Morbid obesity #9: Hyperlipidemia #10: Degenerative joint disease #11: Obstructive sleep apnea #12: See past history 07/09/2017. Patient was seen today along with a female family member and her nurse. Earlier today the patient underwent barium swallow study. This showed minimal indentation on the cervical esophagus by the cricopharyngeus muscle. Minimal tertiary contractions. Small sliding-type hiatal hernia with minimal gastroesophageal reflux. No significant stricture or definite mass. We discussed these findings with the patient. Again, we have emphasized reflux precautions with her to her understanding. She continues to have a cough and this is secondary to her COPD, retained secretions, and reflux with silent microaspiration as noted in her H&P. This is going to take time to resolve. We went over this again with her today. She is not wheezing. Medications have been reviewed. We made no changes today. Labs been reviewed. TSH is low at 0.339 and free T4 is normal at 1.15. Exam (Progress Note) - Constitutional Vitals: Period Temp Pulse Resp BP Sys/Bernabe Pulse Ox Last 24 Hr 97.5 F-98.2 F 86-102 16-20 125-157/43-84 91-99 Exam: Chest is wheeze free Heart sounds are distant, but no appreciable murmur Abdomen is obese, but nontender and nondistended; bowel sounds are positive 4 Extremities with nothing to suggest acute deep venous thrombophlebitis Psychiatric oriented 3 Neurologic long-term motor function is intact Plan: Continue present treatment. Strict reflux precautions. See orders. Results - Labs CBC & BMP: 07/07/17 22:48 07/07/17 22:48
[2017-07-09] MEDS: LEVOFLOXACIN INJ 500 MG in PREMIX 1 EACH IV SCH (13:26)
--- NOTE | 2017-07-09 15:01 | Hospitalist Progress Note ---
Hospitalist: Subjective Interval history: Patient admitted for cough/sob/wheezing. She states that cough has improved with current therapy. She denies any SOB. Exam - Constitutional Vitals: Period Temp Pulse Resp BP Sys/Bernabe Pulse Ox Last 24 Hr 97.5 F-98.3 F 86-102 17-20 125-157/43-87 91-100 General appearance: no acute distress, morbidly obese - Head Head exam: Present: normal inspection, normocephalic - Eye Eye exam: Present: EOMI Pupils: Present: CHRISTY - ENT ENT exam: Present: normal oropharynx - Respiratory Respiratory exam: Present: clear to auscultation bilaterally. Absent: rales, rhonchi, wheezes - Cardiovascular Cardiovascular exam: Present: regular rate and rhythm - GI/Abdominal GI/Abdominal exam: Present: normal bowel sounds, soft. Absent: distended, tenderness - Extremities Exam Extremities exam: Absent: edema - Neurological Exam Neurological exam: Present: alert, oriented X3 - Psychiatric Psychiatric exam: Present: normal affect, normal mood Results - Labs CBC & BMP: 07/07/17 22:48 07/07/17 22:48 - Impressions 1. Acute on chronic cough: improving; continue anti tussive therapy; thoughts include retained secretions/obstructive lung disease/reflux with microaspiration events 2. Acute asthma exacerbation: improving; chest x-ray unremarkable; on steroids/ bronchodilators/antibiotic therapy (clinda and levaquin) 3. GERD: on PPI 4. h/o DM: sugars uncontrolled; on insulin 5. h/o HTN: blood pressure elevated; may need to add luisa-i; obtain bmp 6. h/o liver cancer: being followed by [facility] 7. Morbid obesity 8. h/o VAN Plan: as noted above; appreciate help from pulmonary; likely d/c in next 1-2 days
[2017-07-09] MEDS: MONTELUKAST 10 MG TABLET PO SCH (21:15)
[2017-07-10] MEDS: methylPREDNISolone SOD SUC 40 MG/1 ML VIAL IV SCH ×2 (02:47→14:28)
[2017-07-10] MEDS: ALBUTEROL/IPRATROPIUM 3 ML NEB RESP TX SCH ×5 (03:35→18:55)
[2017-07-10] MEDS: CLINDAMYCIN INJ 300 MG in PREMIX 1 EACH IV SCH ×4 (05:16→22:30)
[2017-07-10 05:23] LABS: Basophils % 0.1 % (0.0-0.8); Hematocrit 37.1 VOL% (35.7-47.0); Hemoglobin 12.9 GM/DL (12.0-16.0); Immature Granulocytes % 0.9 %; Immature Granulocytes Absolute 0.15 #; Lymphocytes # 1.6 10*3/uL (1.4-4.0); Lymphocytes % 9.4 % (21.3-54.2); Mean Corpuscular HGB Conc 34.8 GM/DL (32-36); Mean Corpuscular Hemoglobin 29 PG (27-34); Mean Corpuscular Volume 82.1 FL (87-102); Mean Platelet Volume 11.3 FL (9.6-12.0); Monocytes # 0.7 10*3/uL (0.11-0.8); Neutrophils # 14.2 10*3/uL (1.4-7.4); Neutrophils % 85.6 % (38.7-73.9); Platelet Count 189 T/CUMM (130-400); Red Blood Count 4.52 MC/CUMM (3.8-5.5); Red Cell Distribution Width 12.8 % (9.3-17.3); White Blood Count 16.6 T/CUMM (4-12)
[2017-07-10 05:50] LABS: Calcium 9.1 MG/DL (8.5-10.1); Magnesium 2.1 MG/DL (1.8-2.4); Osmolality,Calculated 287.1 MOS/KG (273-304); Potassium 3.8 MMOL/L (3.5-5.1)
[2017-07-10] MEDS: LEVOTHYROXINE 100 MCG TABLET PO SCH (06:59)
[2017-07-10] MEDS: SODIUM CHLORIDE 0.9% 1,000 ML IV SCH (06:59)
[2017-07-10] MEDS: LIDOCAINE 4% TOP SOLN 50 ML BOTTLE RESP TX SCH ×2 (07:53→14:21)
[2017-07-10] MEDS: DORNASE ALFA 2.5 MG/2.5 ML VIAL RESP TX SCH ×2 (07:53→20:15)
[2017-07-10] MEDS: FUROSEMIDE 20 MG TABLET PO SCH (08:50)
[2017-07-10] MEDS: GABAPENTIN 100 MG CAPSULE PO SCH (08:50)
[2017-07-10] MEDS: PANTOPRAZOLE 40 MG TABLET PO SCH (08:50)
[2017-07-10] MEDS: BENZONATATE 100 MG CAPSULE PO SCH ×3 (08:50→20:33)
[2017-07-10] MEDS: INSULIN ASPART PROTAMINE/ASPART 70/30 100 UNIT/ML SUBCUT SCH ×3 (08:50→16:08)
[2017-07-10] MEDS: ENOXAPARIN 40 MG/0.4 ML SYRINGE SUBCUT SCH (08:50)
[2017-07-10] MEDS: amLODIPine 10 MG TABLET PO SCH (08:50)
[2017-07-10] MEDS: COLESEVELAM 625 MG TABLET PO SCH ×2 (08:50→16:07)
[2017-07-10] MEDS: INSULIN LISPRO 100 UNIT/ML SUBCUT SCH ×4 (08:51→20:36)
[2017-07-10] MEDS: INSULIN GLARGINE 100 UNIT/ML SUBCUT SCH ×2 (08:51→20:35)
--- NOTE | 2017-07-10 09:47 | Pulmonology Progress Note ---
Pulmonary - PN: Subj Interval history: Ms. Mills is a 66-year-old -[place] female who we saw in initial pulmonary consultation 07/08/2017. At that time, our impressions were: #1: Chronic cough for 1 year secondary to COPD, retained secretions, and gastroesophageal reflux with silent microaspiration #2: Asthma with acute exacerbation #3: High blood pressure #4: Insulin-dependent diabetes mellitus #5: History of cancer of the liver followed by Dr. Krause and Dr. Leon [facility] #6: Hypothyroidism #7: Pernicious anemia #8: Morbid obesity #9: Hyperlipidemia #10: Degenerative joint disease #11: Obstructive sleep apnea #12: See past history 07/09/2017. Patient was seen today along with a female family member and her nurse. Earlier today the patient underwent barium swallow study. This showed minimal indentation on the cervical esophagus by the cricopharyngeus muscle. Minimal tertiary contractions. Small sliding-type hiatal hernia with minimal gastroesophageal reflux. No significant stricture or definite mass. We discussed these findings with the patient. Again, we have emphasized reflux precautions with her to her understanding. She continues to have a cough and this is secondary to her COPD, retained secretions, and reflux with silent microaspiration as noted in her H&P. This is going to take time to resolve. We went over this again with her today. She is not wheezing. Medications have been reviewed. We made no changes today. Labs been reviewed. TSH is low at 0.339 and free T4 is normal at 1.15. 07/10/2017. Inhaled Xylocaine has helped patient's cough a good bit. She still has a cough is mobilizing sputum. She is worried about metastatic liver cancer. There is no chest x-ray evidence of this. Recent bronchoscopy specimens were class I and class II and I discussed this with the patient today. I told her the areas of erosive bronchitis seen in her left upper lung and left lower lung will gradually heal but we need to continue to adhere by an antireflux regimen. White count is 16,685.6 segs. H&H 12.9/37.1. Electrolytes are normal. Creatinine is 0.80 with BUN is 17. Thyroid function tests are normal. Urine shows no evidence of infection. There are no positive cultures reported from this admission. Overall the patient's better today. Exam (Progress Note) - Constitutional Vitals: Period Temp Pulse Resp BP Sys/Bernabe Pulse Ox Last 24 Hr 97.5 F-98.2 F 86-102 16-20 125-157/43-84 91-99 Exam: Face. Symmetrical. No edema to lips or tongue Neck. No meningismus no masses Lymphatics. No submandibular cervical supraclavicular or epitrochlear adenopathy.Chest is wheeze free. There is a moderate amount of large airway congestion. Heart sounds are distant, but no appreciable murmur Abdomen is obese, but nontender and nondistended; bowel sounds are positive 4 Extremities with nothing to suggest acute deep venous thrombophlebitis Psychiatric oriented 3 Neurologic long-term motor function is intact The remainder the physical exam is negative. Plan: 07/09/2017 1. Continue present treatment. 2. Strict reflux precautions. 3. See orders. 07/10/2017. 1. See today's note above. 2. Patient is beginning to improve. 3. No evidence of metastatic liver cancer to the lung. Exam (Progress Note) - Constitutional Vitals: Period Temp Pulse Resp BP Sys/Bernabe Pulse Ox Last 24 Hr 96.1 F-98.3 F 88-103 16-22 116-160/71-91 95-100 Results - Labs CBC & BMP: 07/10/17 04:10 07/10/17 04:10
[2017-07-10] MEDS: LEVOFLOXACIN INJ 500 MG in PREMIX 1 EACH IV SCH (11:52)
--- NOTE | 2017-07-10 15:00 | Hospitalist Progress Note ---
Hospitalist: Subjective Interval history: Patient states that her cough has improved. She denies any SOB or CP. Exam - Constitutional Vitals: Period Temp Pulse Resp BP Sys/Bernabe Pulse Ox Last 24 Hr 96.1 F-97.5 F 88-107 16-22 116-160/71-95 95-100 General appearance: no acute distress - Head Head exam: Present: normal inspection, normocephalic - Eye Eye exam: Present: EOMI Pupils: Present: CHRISTY - ENT ENT exam: Present: normal oropharynx - Respiratory Respiratory exam: Present: clear to auscultation bilaterally. Absent: rales, rhonchi, wheezes - Cardiovascular Cardiovascular exam: Present: regular rate and rhythm. Absent: systolic murmur - GI/Abdominal GI/Abdominal exam: Present: normal bowel sounds, soft. Absent: guarding, tenderness, rebound - Extremities Exam Extremities exam: Absent: edema - Neurological Exam Neurological exam: Present: alert, oriented X3 - Psychiatric Psychiatric exam: Present: normal affect, normal mood - Skin Skin exam: Present: normal color Results - Labs CBC & BMP: 07/10/17 04:10 07/10/17 04:10 - Impressions 1. Acute on chronic cough: improving; continue current therapy; thoughts include retained secretions/obstructive lung disease/reflux with microaspiration events 2. Acute asthma exacerbation: improving; chest x-ray unremarkable; on steroids/ bronchodilators/antibiotic therapy (clinda and levaquin); can likely taper steroids on tomorrow 3. GERD: on PPI 4. h/o DM: sugars uncontrolled and likely influenced by parenteral steroids; on insulin; monitor 5. h/o HTN: blood pressure still elevated; will add luisa-i; monitor bmp 6. h/o liver cancer: being followed by [facility] 7. Morbid obesity 8. h/o VAN Plan: as noted above; appreciate help from pulmonary; likely d/c in next 1-2 days
[2017-07-10] MEDS: MONTELUKAST 10 MG TABLET PO SCH (20:33)
[2017-07-11] MEDS: ALBUTEROL/IPRATROPIUM 3 ML NEB RESP TX SCH ×7 (00:11→23:38)
[2017-07-11] MEDS: LIDOCAINE 4% TOP SOLN 50 ML BOTTLE RESP TX SCH ×4 (00:12→23:39)
[2017-07-11] MEDS: methylPREDNISolone SOD SUC 40 MG/1 ML VIAL IV SCH ×2 (01:53→13:25)
[2017-07-11] MEDS: CLINDAMYCIN INJ 300 MG in PREMIX 1 EACH IV SCH ×3 (05:38→17:33)
[2017-07-11] MEDS: LEVOTHYROXINE 100 MCG TABLET PO SCH (06:36)
[2017-07-11 06:45] LABS: Basophils % 0.1 % (0.0-0.8); Hematocrit 38.5 VOL% (35.7-47.0); Hemoglobin 13.2 GM/DL (12.0-16.0); Immature Granulocytes Absolute 0.15 #; Lymphocytes # 1.6 10*3/uL (1.4-4.0); Mean Corpuscular HGB Conc 34.3 GM/DL (32-36); Mean Corpuscular Hemoglobin 28 PG (27-34); Mean Corpuscular Volume 82.6 FL (87-102); Mean Platelet Volume 11.5 FL (9.6-12.0); Monocytes # 0.7 10*3/uL (0.11-0.8); Monocytes % 4.9 % (1.7-12.7); Neutrophils # 12.1 10*3/uL (1.4-7.4); Platelet Count 177 T/CUMM (130-400); Red Blood Count 4.66 MC/CUMM (3.8-5.5); White Blood Count 14.6 T/CUMM (4-12)
[2017-07-11 07:22] LABS: Calcium 8.8 MG/DL (8.5-10.1); Magnesium 2.1 MG/DL (1.8-2.4); Osmolality,Calculated 284.1 MOS/KG (273-304); Potassium 3.3 MMOL/L (3.5-5.1)
[2017-07-11] MEDS: DORNASE ALFA 2.5 MG/2.5 ML VIAL RESP TX SCH ×2 (07:41→19:09)
[2017-07-11] MEDS: INSULIN LISPRO 100 UNIT/ML SUBCUT SCH ×4 (07:57→21:48)
[2017-07-11] MEDS: SODIUM CHLORIDE 0.9% 1,000 ML IV SCH ×2 (08:00→08:05)
[2017-07-11] MEDS: INSULIN ASPART PROTAMINE/ASPART 70/30 100 UNIT/ML SUBCUT SCH ×3 (10:01→16:46)
[2017-07-11] MEDS: INSULIN GLARGINE 100 UNIT/ML SUBCUT SCH ×2 (10:01→21:48)
[2017-07-11] MEDS: PANTOPRAZOLE 40 MG TABLET PO SCH (10:02)
[2017-07-11] MEDS: LISINOPRIL 10 MG TABLET PO SCH (10:03)
[2017-07-11] MEDS: GABAPENTIN 100 MG CAPSULE PO SCH (10:04)
[2017-07-11] MEDS: amLODIPine 10 MG TABLET PO SCH (10:04)
[2017-07-11] MEDS: FUROSEMIDE 20 MG TABLET PO SCH (10:05)
[2017-07-11] MEDS: COLESEVELAM 625 MG TABLET PO SCH ×2 (10:06→16:45)
[2017-07-11] MEDS: ENOXAPARIN 40 MG/0.4 ML SYRINGE SUBCUT SCH (10:06)
[2017-07-11] MEDS: BENZONATATE 100 MG CAPSULE PO SCH ×3 (10:08→20:23)
[2017-07-11] MEDS: DOCUSATE SODIUM 100 MG CAPSULE PO PRN (10:09)
--- NOTE | 2017-07-11 10:37 | Pulmonology Progress Note ---
Pulmonary - PN: Subj Interval history: Ms. Mills is a 66-year-old -[place] female who we saw in initial pulmonary consultation 07/08/2017. At that time, our impressions were: #1: Chronic cough for 1 year secondary to COPD, retained secretions, and gastroesophageal reflux with silent microaspiration #2: Asthma with acute exacerbation #3: High blood pressure #4: Insulin-dependent diabetes mellitus #5: History of cancer of the liver followed by Dr. Krause and Dr. Leon [facility] #6: Hypothyroidism #7: Pernicious anemia #8: Morbid obesity #9: Hyperlipidemia #10: Degenerative joint disease #11: Obstructive sleep apnea #12: See past history 07/09/2017. Patient was seen today along with a female family member and her nurse. Earlier today the patient underwent barium swallow study. This showed minimal indentation on the cervical esophagus by the cricopharyngeus muscle. Minimal tertiary contractions. Small sliding-type hiatal hernia with minimal gastroesophageal reflux. No significant stricture or definite mass. We discussed these findings with the patient. Again, we have emphasized reflux precautions with her to her understanding. She continues to have a cough and this is secondary to her COPD, retained secretions, and reflux with silent microaspiration as noted in her H&P. This is going to take time to resolve. We went over this again with her today. She is not wheezing. Medications have been reviewed. We made no changes today. Labs been reviewed. TSH is low at 0.339 and free T4 is normal at 1.15. 07/10/2017. Inhaled Xylocaine has helped patient's cough a good bit. She still has a cough is mobilizing sputum. She is worried about metastatic liver cancer. There is no chest x-ray evidence of this. Recent bronchoscopy specimens were class I and class II and I discussed this with the patient today. I told her the areas of erosive bronchitis seen in her left upper lung and left lower lung will gradually heal but we need to continue to adhere by an antireflux regimen. White count is 16,685.6 segs. H&H 12.9/37.1. Electrolytes are normal. Creatinine is 0.80 with BUN is 17. Thyroid function tests are normal. Urine shows no evidence of infection. There are no positive cultures reported from this admission. Overall the patient's better today. 07/11/2017. Patient sitting up in a chair today and she appears comfortable. The frequency and severity of her cough improved significantly. Periodically she gets inhaled Xylocaine. Her chest sounds much better to me. She is a little reluctant to confirm this. There are no new problems. Patient had no new complaints. Exam (Progress Note) - Constitutional Vitals: Period Temp Pulse Resp BP Sys/Bernabe Pulse Ox Last 24 Hr 97.5 F-98.2 F 86-102 16-20 125-157/43-84 91-99 Exam: Face. Symmetrical. No edema to lips or tongue Neck. No meningismus no masses Lymphatics. No submandibular cervical supraclavicular or epitrochlear adenopathy.Chest is wheeze free. There is a moderate amount of large airway congestion. Heart sounds are distant, but no appreciable murmur Abdomen is obese, but nontender and nondistended; bowel sounds are positive 4 Extremities with nothing to suggest acute deep venous thrombophlebitis Psychiatric oriented 3 Neurologic long-term motor function is intact The remainder the physical exam is negative. Plan: 07/09/2017 1. Continue present treatment. 2. Strict reflux precautions. 3. See orders. 07/10/2017. 1. See today's note above. 2. Patient is beginning to improve. 3. No evidence of metastatic liver cancer to the lung. 07/11/2017. 1. See today's note above 2. Two-view chest x-ray in morning. 3. Continue present regimen Exam (Progress Note) - Constitutional Vitals: Period Temp Pulse Resp BP Sys/Bernabe Pulse Ox Last 24 Hr 96.3 F-98.7 F 92-107 18-20 133-178/79-98 92-100 Results - Labs CBC & BMP: 07/11/17 04:24 07/11/17 04:24
[2017-07-11] MEDS: LEVOFLOXACIN INJ 500 MG in PREMIX 1 EACH IV SCH (12:30)
--- NOTE | 2017-07-11 15:27 | Hospitalist Progress Note ---
Assessment and Plan (1) Morbid obesity Status: Acute Assessment and plan: Need to increase his aerobic activity at least 3 times a week about 45 minutes a session. Hopefully her asthma contacted Current Visit: Yes (2) Asthma Status: Acute Assessment and plan: Patient is in with her getting better we will see how she does tomorrow morning we will switch her to oral steroids at that time. A slow taper will be encouraged Current Visit: No (3) Asthma with exacerbation Status: Acute Assessment and plan: This is been Current Visit: Yes Hospitalist: Subjective Interval history: Patient been seen interviewed and examined chart has been reviewed. Admitted to the hospital with status asthmaticus. She is getting better. Will be repeated chest x-ray tomorrow and to comment from pulmonology. Chances of recurrence she can be discharged tomorrow. Exam - Constitutional Vitals: Period Temp Pulse Resp BP Sys/Bernabe Pulse Ox Last 24 Hr 96.3 F-98.7 F 92-105 18-20 133-184/79-98 92-100 General appearance: morbidly obese - Head Head exam: Present: normocephalic, atraumatic - Eye Eye exam: Present: EOMI Pupils: Present: CHRISTY - ENT ENT exam: Present: normal oropharynx - Respiratory Respiratory exam: Present: other (Slight prolongation of the expiratory phase but no lindsay wheezing) - Cardiovascular Cardiovascular exam: Present: regular rate and rhythm - GI/Abdominal GI/Abdominal exam: Present: normal bowel sounds, soft - Extremities Exam Extremities exam: Present: full ROM - Neurological Exam Neurological exam: Present: alert, oriented X3, CN II-XII intact - Psychiatric Psychiatric exam: Present: normal affect, normal mood - Skin Skin exam: Present: normal color, warm, dry Results - Labs CBC & BMP: 07/11/17 04:24 07/11/17 04:24 Lab Results: I have reviewed the past 24 hour labs
[2017-07-11] MEDS: MONTELUKAST 10 MG TABLET PO SCH (20:23)
[2017-07-12] MEDS: methylPREDNISolone SOD SUC 40 MG/1 ML VIAL IV SCH ×2 (01:10→14:39)
[2017-07-12] MEDS: CLINDAMYCIN INJ 300 MG in PREMIX 1 EACH IV SCH ×4 (01:13→21:14)
[2017-07-12] MEDS: ALBUTEROL/IPRATROPIUM 3 ML NEB RESP TX SCH ×6 (03:21→23:51)
[2017-07-12] MEDS: LEVOTHYROXINE 100 MCG TABLET PO SCH (06:09)
[2017-07-12] MEDS: LIDOCAINE 4% TOP SOLN 50 ML BOTTLE RESP TX SCH ×3 (07:35→19:41)
[2017-07-12] MEDS: DORNASE ALFA 2.5 MG/2.5 ML VIAL RESP TX SCH ×2 (07:45→19:50)
--- NOTE | 2017-07-12 08:21 | XRay Report ---
XR chest 2V Indication: COPD Comparison: 07 July 2017 Findings: The heart and mediastinum are normal in size and configuration. The pulmonary vascularity is normal in caliber. Linear densities are present in right midlung and left lung base slightly increased. No other lung infiltrates, effusions, pneumothorax or other abnormality is demonstrated. Impression: Slight increased linear densities, could indicate atelectasis. PROCEDURE INTERPRETED AT [facility] DEPARTMENT OF RADIOLOGY Final Report Signed by: Dr. Camilo Petersen
[2017-07-12] MEDS: COLESEVELAM 625 MG TABLET PO SCH ×2 (08:53→18:30)
[2017-07-12] MEDS: LISINOPRIL 10 MG TABLET PO SCH (08:54)
[2017-07-12] MEDS: GABAPENTIN 100 MG CAPSULE PO SCH (08:54)
[2017-07-12] MEDS: INSULIN GLARGINE 100 UNIT/ML SUBCUT SCH ×2 (08:54→21:13)
[2017-07-12] MEDS: BENZONATATE 100 MG CAPSULE PO SCH ×3 (08:54→21:15)
[2017-07-12] MEDS: amLODIPine 10 MG TABLET PO SCH (08:54)
[2017-07-12] MEDS: INSULIN ASPART PROTAMINE/ASPART 70/30 100 UNIT/ML SUBCUT SCH ×3 (08:55→16:52)
[2017-07-12] MEDS: INSULIN LISPRO 100 UNIT/ML SUBCUT SCH ×4 (08:57→21:16)
[2017-07-12] MEDS: PANTOPRAZOLE 40 MG TABLET PO SCH (09:06)
[2017-07-12] MEDS: FUROSEMIDE 20 MG TABLET PO SCH (09:06)
[2017-07-12] MEDS: ENOXAPARIN 40 MG/0.4 ML SYRINGE SUBCUT SCH (09:06)
--- NOTE | 2017-07-12 10:11 | Physician Query Form ---
CLICK EDIT DOCUMENT TO SELECT QUERY ANSWER --> OK --> SIGN Cinthia Santiago RN Clinical [employer] W) [phone] (f) [phone] [email or web address] PROVIDERS: Make your selection(s) from the choices in EACH section by typing an "x" and enter comments in the comment section. Please use your independent medical judgment in providing your response. This request does not imply that any particular answer is desired or expected. CLINICAL INDICATORS: (Providers should not edit this section) Based on documentation of "gastroesophageal reflux with silent microaspiration" and "erosive bronchitis,continue to adhere by an antireflux regimen". Based on the above, could you clarify the appropriate diagnosis, if significant , that supports the above abnormalities and additional evaluation, monitoring, and/or treatment rendered: (X ) Pt. has aspiration bronchitis ( ) Pt. does not have aspiration bronchitis ( ) Other, please specify: ( ) Clinically unable to determine COMMENTS: PLEASE ALSO DOCUMENT RESPONSE IN PROGRESS NOTES AND/OR DISCHARGE SUMMARY Use of terms such as suspected, likely, or probable (associated with a specific diagnosis that is being evaluated, monitored, or treated as if it exists) are acceptable and can be restated in the discharge summary if not ruled out. MTDD
--- NOTE | 2017-07-12 12:12 | Hospitalist Progress Note ---
Assessment and Plan (1) Morbid obesity Status: Acute Assessment and plan: Need to increase his aerobic activity at least 3 times a week about 45 minutes a session. Hopefully her asthma contacted Current Visit: Yes (2) Asthma Status: Acute Assessment and plan: She has developed this new cough and the chest discomfort. Abnormal chest x- ray on today's findings. Patient will continue on systemic IV steroids. Subsequently I will suggest a slow taper of oral prednisone Current Visit: No (3) Asthma with exacerbation Status: Acute Assessment and plan: As above. Provide patient incentive spirometry at bedside. Chest x-ray from this morning suggest atelectasis. Current Visit: Yes Hospitalist: Subjective Interval history: She has been seen interviewed and examined and chart has been reviewed. She is complaining of more coughing going on today. This x-ray done today show some uremia opacities in the right midlung field in the right lower lobe. There is suggestion of possibility of atelectasis. We will give her use incentive spirometer she was awake better. My intention was to discharge her today with these findings and her complaints beyond the stasis in which she has repeatedly come back to the hospital will rather escort this clinical syndrome a little bit longer. Exam - Constitutional Vitals: Period Temp Pulse Resp BP Sys/Bernabe Pulse Ox Last 24 Hr 97.2 F-98.5 F 88-111 16-20 118-151/60-92 94-99 General appearance: no acute distress, morbidly obese - Head Head exam: Present: normocephalic, atraumatic - Eye Eye exam: Present: EOMI Pupils: Present: CHRISTY - Neck Neck exam: Present: other (No stridor) - Respiratory Respiratory exam: Present: clear to auscultation bilaterally, other (I do not hear any wheezing but is slight prolongation of the expiratory phase) - Cardiovascular Cardiovascular exam: Present: regular rate and rhythm - GI/Abdominal GI/Abdominal exam: Present: normal bowel sounds, soft - Extremities Exam Extremities exam: Present: full ROM - Neurological Exam Neurological exam: Present: alert, oriented X3, CN II-XII intact - Psychiatric Psychiatric exam: Present: normal affect, normal mood - Skin Skin exam: Present: normal color, warm, dry Results - Labs CBC & BMP: 07/11/17 04:24 07/11/17 04:24 Lab Results: I have reviewed the past 24 hour labs - Diagnostic Findings Procedure: Chest x-ray: other (Chest x-ray does noted)
[2017-07-12] MEDS: LEVOFLOXACIN INJ 500 MG in PREMIX 1 EACH IV SCH (12:21)
--- NOTE | 2017-07-12 12:26 | Pulmonology Progress Note ---
Pulmonary - PN: Subj Interval history: Devyn Harkins, [facility]-, acting as scribe for Dr. Wan Vergara Ms. Mills is a 66-year-old -[place]ian female who we saw in initial pulmonary consultation 07/08/2017. At that time, our impressions were: #1: Chronic cough for 1 year secondary to COPD, retained secretions, and gastroesophageal reflux with silent microaspiration #2: Asthma with acute exacerbation #3: High blood pressure #4: Insulin-dependent diabetes mellitus #5: History of cancer of the liver followed by Dr. Krause and Dr. Leon [facility] #6: Hypothyroidism #7: Pernicious anemia #8: Morbid obesity #9: Hyperlipidemia #10: Degenerative joint disease #11: Obstructive sleep apnea #12: See past history 07/09/2017. Patient was seen today along with a female family member and her nurse. Earlier today the patient underwent barium swallow study. This showed minimal indentation on the cervical esophagus by the cricopharyngeus muscle. Minimal tertiary contractions. Small sliding-type hiatal hernia with minimal gastroesophageal reflux. No significant stricture or definite mass. We discussed these findings with the patient. Again, we have emphasized reflux precautions with her to her understanding. She continues to have a cough and this is secondary to her COPD, retained secretions, and reflux with silent microaspiration as noted in her H&P. This is going to take time to resolve. We went over this again with her today. She is not wheezing. Medications have been reviewed. We made no changes today. Labs been reviewed. TSH is low at 0.339 and free T4 is normal at 1.15. 07/10/2017. Inhaled Xylocaine has helped patient's cough a good bit. She still has a cough is mobilizing sputum. She is worried about metastatic liver cancer. There is no chest x-ray evidence of this. Recent bronchoscopy specimens were class I and class II and I discussed this with the patient today. I told her the areas of erosive bronchitis seen in her left upper lung and left lower lung will gradually heal but we need to continue to adhere by an antireflux regimen. White count is 16,685.6 segs. H&H 12.9/37.1. Electrolytes are normal. Creatinine is 0.80 with BUN is 17. Thyroid function tests are normal. Urine shows no evidence of infection. There are no positive cultures reported from this admission. Overall the patient's better today. 07/11/2017. Patient sitting up in a chair today and she appears comfortable. The frequency and severity of her cough improved significantly. Periodically she gets inhaled Xylocaine. Her chest sounds much better to me. She is a little reluctant to confirm this. There are no new problems. Patient had no new complaints. 07/12/2017. Patient was seen today along with Yeni Recinos RN. She complains of costochondritis secondary to coughing. We have shown her exercises to stretch the surrounding muscles, but has informed her that this will most likely take time to heal. She could use Aspercreme as needed. She is already on Solu-Medrol and we would not go up on her dose. She continues to cough. Previous bronchoscopy specimens from 07/06/2017 grew no organisms. She has no positive cultures this admission either. Medications have been reviewed. We made no changes today. Labs been reviewed. No new labs drawn today. Exam (Progress Note) - Constitutional Vitals: Period Temp Pulse Resp BP Sys/Bernabe Pulse Ox Last 24 Hr 97.2 F-98.5 F 88-111 16-20 118-151/60-92 94-99 Exam: Chest is wheeze free Heart sounds are distant, but no appreciable murmur Abdomen is obese, but nontender and nondistended; bowel sounds are positive 4 Extremities with nothing to suggest acute deep venous thrombophlebitis Psychiatric oriented 3 Neurologic long-term motor function is intact Plan: Continue present treatment. Strict reflux precautions. See orders. Results - Labs CBC & BMP: 07/11/17 04:24 07/11/17 04:24
[2017-07-12] MEDS: DOCUSATE SODIUM 100 MG CAPSULE PO PRN (12:41)
[2017-07-12] MEDS: MONTELUKAST 10 MG TABLET PO SCH (21:16)
[2017-07-13] MEDS: methylPREDNISolone SOD SUC 40 MG/1 ML VIAL IV SCH (02:30)
[2017-07-13] MEDS: CLINDAMYCIN INJ 300 MG in PREMIX 1 EACH IV SCH ×4 (02:34→20:57)
[2017-07-13] MEDS: ALBUTEROL/IPRATROPIUM 3 ML NEB RESP TX SCH ×6 (04:07→23:25)
[2017-07-13] MEDS: LEVOTHYROXINE 100 MCG TABLET PO SCH (07:00)
[2017-07-13] MEDS: DORNASE ALFA 2.5 MG/2.5 ML VIAL RESP TX SCH ×2 (07:27→20:16)
[2017-07-13] MEDS: LIDOCAINE 4% TOP SOLN 50 ML BOTTLE RESP TX SCH ×3 (07:32→20:05)
[2017-07-13] MEDS: INSULIN GLARGINE 100 UNIT/ML SUBCUT SCH ×2 (08:29→21:54)
[2017-07-13] MEDS: INSULIN ASPART PROTAMINE/ASPART 70/30 100 UNIT/ML SUBCUT SCH ×3 (08:30→17:00)
[2017-07-13] MEDS: INSULIN LISPRO 100 UNIT/ML SUBCUT SCH ×4 (08:30→21:55)
[2017-07-13] MEDS: ENOXAPARIN 40 MG/0.4 ML SYRINGE SUBCUT SCH (08:33)
[2017-07-13] MEDS: BENZONATATE 100 MG CAPSULE PO SCH ×3 (08:35→21:52)
[2017-07-13] MEDS: amLODIPine 10 MG TABLET PO SCH (08:35)
[2017-07-13] MEDS: FUROSEMIDE 20 MG TABLET PO SCH (08:35)
[2017-07-13] MEDS: LISINOPRIL 10 MG TABLET PO SCH (08:35)
[2017-07-13] MEDS: PANTOPRAZOLE 40 MG TABLET PO SCH (08:35)
[2017-07-13] MEDS: GABAPENTIN 100 MG CAPSULE PO SCH (08:36)
[2017-07-13] MEDS: COLESEVELAM 625 MG TABLET PO SCH ×2 (08:37→17:00)
--- NOTE | 2017-07-13 10:23 | Hospitalist Progress Note ---
Assessment and Plan (1) History of liver cancer Status: Chronic Current Visit: No (2) Morbid obesity Status: Chronic Current Visit: Yes (3) Obstructive sleep apnea Status: Chronic Current Visit: Yes (4) Asthma with exacerbation Status: Acute Assessment and plan: She continues on intravenous clindamycin and methylprednisolone and albuterol ipratropium nebulizer therapy. I will change her methylprednisolone to oral prednisone. If stable I will discharge her tomorrow morning. Current Visit: Yes Qualifiers: Asthma severity: severe Asthma persistence: persistent Qualified Code(s) : J45.51 - Severe persistent asthma with (acute) exacerbation Hospitalist: Subjective Interval history: She continues with the same complaints. She continues to complain of wheezing, shortness of breath, and pain in her chest from coughing. She is being followed by pulmonary. If she is stable I will discharge her tomorrow morning. Exam - Constitutional Vitals: Period Temp Pulse Resp BP Sys/Bernabe Pulse Ox Last 24 Hr 97.4 F-98.4 F 75-111 16-20 122-143/65-82 93-100 General appearance: no acute distress - Head Head exam: Present: normal inspection - Neck Neck exam: Present: normal inspection - Respiratory Respiratory exam: Present: other (Scattered rhonchi and wheezes.) - Cardiovascular Cardiovascular exam: Present: regular rate and rhythm - GI/Abdominal GI/Abdominal exam: Present: normal bowel sounds, soft, other (Nontender with no palpable masses or hepatosplenomegaly.) - Extremities Exam Extremities exam: Present: normal inspection - Skin Skin exam: Present: normal color, warm, intact Results - Labs CBC & BMP: 07/11/17 04:24 07/11/17 04:24
[2017-07-13] MEDS ORDERED: POTASSIUM CHLORIDE 20 MEQ TABLET PO PRN (10:26)
[2017-07-13] MEDS: LEVOFLOXACIN INJ 500 MG in PREMIX 1 EACH IV SCH (11:05)
--- NOTE | 2017-07-13 12:13 | Pulmonology Progress Note ---
Pulmonary - PN: Subj Interval history: Devyn Harkins, [facility]-, acting as scribe for Dr. Wan Vergara Ms. Mills is a 66-year-old -[place]ian female who we saw in initial pulmonary consultation 07/08/2017. At that time, our impressions were: #1: Chronic cough for 1 year secondary to COPD, retained secretions, and gastroesophageal reflux with silent microaspiration #2: Asthma with acute exacerbation #3: High blood pressure #4: Insulin-dependent diabetes mellitus #5: History of cancer of the liver followed by Dr. Krause and Dr. Leon [facility] #6: Hypothyroidism #7: Pernicious anemia #8: Morbid obesity #9: Hyperlipidemia #10: Degenerative joint disease #11: Obstructive sleep apnea #12: See past history 07/09/2017. Patient was seen today along with a female family member and her nurse. Earlier today the patient underwent barium swallow study. This showed minimal indentation on the cervical esophagus by the cricopharyngeus muscle. Minimal tertiary contractions. Small sliding-type hiatal hernia with minimal gastroesophageal reflux. No significant stricture or definite mass. We discussed these findings with the patient. Again, we have emphasized reflux precautions with her to her understanding. She continues to have a cough and this is secondary to her COPD, retained secretions, and reflux with silent microaspiration as noted in her H&P. This is going to take time to resolve. We went over this again with her today. She is not wheezing. Medications have been reviewed. We made no changes today. Labs been reviewed. TSH is low at 0.339 and free T4 is normal at 1.15. 07/10/2017. Inhaled Xylocaine has helped patient's cough a good bit. She still has a cough is mobilizing sputum. She is worried about metastatic liver cancer. There is no chest x-ray evidence of this. Recent bronchoscopy specimens were class I and class II and I discussed this with the patient today. I told her the areas of erosive bronchitis seen in her left upper lung and left lower lung will gradually heal but we need to continue to adhere by an antireflux regimen. White count is 16,685.6 segs. H&H 12.9/37.1. Electrolytes are normal. Creatinine is 0.80 with BUN is 17. Thyroid function tests are normal. Urine shows no evidence of infection. There are no positive cultures reported from this admission. Overall the patient's better today. 07/11/2017. Patient sitting up in a chair today and she appears comfortable. The frequency and severity of her cough improved significantly. Periodically she gets inhaled Xylocaine. Her chest sounds much better to me. She is a little reluctant to confirm this. There are no new problems. Patient had no new complaints. 07/12/2017. Patient was seen today along with Yeni Recinos RN. She complains of costochondritis secondary to coughing. We have shown her exercises to stretch the surrounding muscles, but has informed her that this will most likely take time to heal. She could use Aspercreme as needed. She is already on Solu-Medrol and we would not go up on her dose. She continues to cough. Previous bronchoscopy specimens from 07/06/2017 grew no organisms. She has no positive cultures this admission either. Medications have been reviewed. We made no changes today. Labs been reviewed. No new labs drawn today. 07/13/2017. The patient was seen today along with Yeni Recinos RN. From a pulmonary standpoint patient continues to do well. She asked about a flu shot and we told her that this would be fine at discharge. Chest x-ray today continues to show bilateral linear atelectasis, but this is stable. We have again stressed to her that it will take quite some time for cough to completely resolve but if she continues to follow a strict antireflux regimen and watch for triggers of her reflux she will continue to improve over time. Medications have been reviewed. We made no changes today. Labs been reviewed. No new labs were drawn today. Exam (Progress Note) - Constitutional Vitals: Period Temp Pulse Resp BP Sys/Bernabe Pulse Ox Last 24 Hr 97.4 F-98.4 F 75-101 16-20 122-146/70-82 93-100 Exam: Chest is wheeze free Heart sounds are distant, but no appreciable murmur Abdomen is obese, but nontender and nondistended; bowel sounds are positive 4 Extremities with nothing to suggest acute deep venous thrombophlebitis Psychiatric oriented 3 Neurologic long-term motor function is intact Plan: Continue present treatment. Strict reflux precautions. See orders. From our standpoint, the patient is fine for flu shot at discharge. Results - Labs CBC & BMP: 07/11/17 04:24 07/11/17 04:24
[2017-07-13] MEDS: DOCUSATE SODIUM 100 MG CAPSULE PO PRN (15:36)
[2017-07-13] MEDS: MONTELUKAST 10 MG TABLET PO SCH (21:51)
[2017-07-14] MEDS: CLINDAMYCIN INJ 300 MG in PREMIX 1 EACH IV SCH ×2 (02:10→09:39)
[2017-07-14] MEDS: ALBUTEROL/IPRATROPIUM 3 ML NEB RESP TX SCH ×6 (03:50→23:51)
[2017-07-14] MEDS: LEVOTHYROXINE 100 MCG TABLET PO SCH (06:03)
[2017-07-14] MEDS: DORNASE ALFA 2.5 MG/2.5 ML VIAL RESP TX SCH ×2 (07:38→19:20)
[2017-07-14 07:42] LABS: Basophils % 0.1 % (0.0-0.8); Eosinophils % 0.3 % (0.00-10.9); Hematocrit 38.5 VOL% (35.7-47.0); Hemoglobin 13.6 GM/DL (12.0-16.0); Immature Granulocytes Absolute 0.16 #; Lymphocytes # 4.1 10*3/uL (1.4-4.0); Lymphocytes % 26.7 % (21.3-54.2); Mean Corpuscular HGB Conc 35.3 GM/DL (32-36); Mean Corpuscular Hemoglobin 29 PG (27-34); Mean Corpuscular Volume 81.9 FL (87-102); Monocytes # 1.7 10*3/uL (0.11-0.8); Monocytes % 10.9 % (1.7-12.7); NRBC # 0.02 10*3/uL; Neutrophils # 9.3 10*3/uL (1.4-7.4); Platelet Count 153 T/CUMM (130-400); White Blood Count 15.3 T/CUMM (4-12)
[2017-07-14 08:10] LABS: Calcium 8.3 MG/DL (8.5-10.1); Osmolality,Calculated 282.4 MOS/KG (273-304); Potassium 2.9 MMOL/L (3.5-5.1)
[2017-07-14] MEDS: INSULIN LISPRO 100 UNIT/ML SUBCUT SCH ×4 (08:32→21:00)
[2017-07-14] MEDS ORDERED: predniSONE 20 MG TABLET PO SCH (09:00)
[2017-07-14] MEDS: INSULIN ASPART PROTAMINE/ASPART 70/30 100 UNIT/ML SUBCUT SCH ×3 (09:30→16:09)
[2017-07-14] MEDS: LIDOCAINE 4% TOP SOLN 50 ML BOTTLE RESP TX SCH ×2 (09:37→14:55)
[2017-07-14] MEDS: INSULIN GLARGINE 100 UNIT/ML SUBCUT SCH ×2 (09:39→20:44)
[2017-07-14] MEDS: FUROSEMIDE 20 MG TABLET PO SCH (09:43)
[2017-07-14] MEDS: PANTOPRAZOLE 40 MG TABLET PO SCH (09:43)
[2017-07-14] MEDS: ENOXAPARIN 40 MG/0.4 ML SYRINGE SUBCUT SCH (09:43)
[2017-07-14] MEDS: LISINOPRIL 10 MG TABLET PO SCH (09:44)
[2017-07-14] MEDS: BENZONATATE 100 MG CAPSULE PO SCH ×3 (09:44→20:40)
[2017-07-14] MEDS: COLESEVELAM 625 MG TABLET PO SCH ×2 (09:44→16:10)
[2017-07-14] MEDS: amLODIPine 10 MG TABLET PO SCH (09:44)
[2017-07-14] MEDS: GABAPENTIN 100 MG CAPSULE PO SCH (09:45)
[2017-07-14] MEDS: predniSONE 10 MG TABLET PO SCH (09:47)
[2017-07-14] MEDS: POTASSIUM CHLORIDE 20 MEQ TABLET PO SCH (09:47)
--- NOTE | 2017-07-14 10:16 | Hospitalist Progress Note ---
Assessment and Plan (1) History of liver cancer Status: Chronic Assessment and plan: She has a history of liver cancer. She is treated by Dr. Leon at [facility]. There is no evidence of metastatic disease. Current Visit: No (2) Morbid obesity Status: Chronic Current Visit: Yes (3) Obstructive sleep apnea Status: Chronic Current Visit: Yes (4) Asthma with exacerbation Status: Acute Assessment and plan: She continues on intravenous clindamycin and oral prednisone. She appears significantly improved to me, although she still complains of coughing and weakness. She is being followed by pulmonary. . Current Visit: Yes Qualifiers: Asthma severity: severe Asthma persistence: persistent Qualified Code(s) : J45.51 - Severe persistent asthma with (acute) exacerbation Hospitalist: Subjective Interval history: Patient continues to complain of weakness and coughing. She states that she does not yet feel strong enough to go home. She continues on her same antibiotics and albuterol ipratropium nebulizer therapy. I have decreased her prednisone from 20 mg p.o. daily to 10 mg p.o. daily. Exam - Constitutional Vitals: Period Temp Pulse Resp BP Sys/Bernabe Pulse Ox Last 24 Hr 97.3 F-97.8 F 78-105 16-19 129-146/63-80 90-100 General appearance: no acute distress - Head Head exam: Present: normal inspection - Neck Neck exam: Present: normal inspection - Respiratory Respiratory exam: Present: clear to auscultation bilaterally - Cardiovascular Cardiovascular exam: Present: regular rate and rhythm - GI/Abdominal GI/Abdominal exam: Present: normal bowel sounds, soft, other (Nontender with no palpable masses or hepatosplenomegaly.) - Extremities Exam Extremities exam: Present: normal inspection - Skin Skin exam: Present: normal color, warm, intact Results - Labs CBC & BMP: 07/14/17 07:12 07/14/17 07:12
[2017-07-14] MEDS ORDERED: DEXTROSE 50% 25 GM/50 ML VIAL IV PRN (11:00)
--- NOTE | 2017-07-14 11:19 | Pulmonology Progress Note ---
Pulmonary - PN: Subj Interval history: Devyn Harkins, [facility]-, acting as scribe for Dr. Wan Vergara Ms. Mills is a 66-year-old -Polish female who we saw in initial pulmonary consultation 07/08/2017. At that time, our impressions were: #1: Chronic cough for 1 year secondary to COPD, retained secretions, and gastroesophageal reflux with silent microaspiration #2: Asthma with acute exacerbation #3: High blood pressure #4: Insulin-dependent diabetes mellitus #5: History of cancer of the liver followed by Dr. Krause and Dr. Leon [facility] #6: Hypothyroidism #7: Pernicious anemia #8: Morbid obesity #9: Hyperlipidemia #10: Degenerative joint disease #11: Obstructive sleep apnea #12: See past history 07/09/2017. Patient was seen today along with a female family member and her nurse. Earlier today the patient underwent barium swallow study. This showed minimal indentation on the cervical esophagus by the cricopharyngeus muscle. Minimal tertiary contractions. Small sliding-type hiatal hernia with minimal gastroesophageal reflux. No significant stricture or definite mass. We discussed these findings with the patient. Again, we have emphasized reflux precautions with her to her understanding. She continues to have a cough and this is secondary to her COPD, retained secretions, and reflux with silent microaspiration as noted in her H&P. This is going to take time to resolve. We went over this again with her today. She is not wheezing. Medications have been reviewed. We made no changes today. Labs been reviewed. TSH is low at 0.339 and free T4 is normal at 1.15. 07/10/2017. Inhaled Xylocaine has helped patient's cough a good bit. She still has a cough is mobilizing sputum. She is worried about metastatic liver cancer. There is no chest x-ray evidence of this. Recent bronchoscopy specimens were class I and class II and I discussed this with the patient today. I told her the areas of erosive bronchitis seen in her left upper lung and left lower lung will gradually heal but we need to continue to adhere by an antireflux regimen. White count is 16,685.6 segs. H&H 12.9/37.1. Electrolytes are normal. Creatinine is 0.80 with BUN is 17. Thyroid function tests are normal. Urine shows no evidence of infection. There are no positive cultures reported from this admission. Overall the patient's better today. 07/11/2017. Patient sitting up in a chair today and she appears comfortable. The frequency and severity of her cough improved significantly. Periodically she gets inhaled Xylocaine. Her chest sounds much better to me. She is a little reluctant to confirm this. There are no new problems. Patient had no new complaints. 07/12/2017. Patient was seen today along with Yeni Recinos RN. She complains of costochondritis secondary to coughing. We have shown her exercises to stretch the surrounding muscles, but has informed her that this will most likely take time to heal. She could use Aspercreme as needed. She is already on Solu-Medrol and we would not go up on her dose. She continues to cough. Previous bronchoscopy specimens from 07/06/2017 grew no organisms. She has no positive cultures this admission either. Medications have been reviewed. We made no changes today. Labs been reviewed. No new labs drawn today. 07/13/2017. The patient was seen today along with Yeni Recinos RN. From a pulmonary standpoint patient continues to do well. She asked about a flu shot and we told her that this would be fine at discharge. Chest x-ray today continues to show bilateral linear atelectasis, but this is stable. We have again stressed to her that it will take quite some time for cough to completely resolve but if she continues to follow a strict antireflux regimen and watch for triggers of her reflux she will continue to improve over time. Medications have been reviewed. We made no changes today. Labs been reviewed. No new labs were drawn today. 07/14/2017. Patient was seen today along with Gio Robles RN. Upon entering the room, the patient stated that she was not ready to be discharged. She stated that she was too weak to go home. We made it clear that decision was not ours, but we have ordered physical therapy for evaluation and treatment. From a pulmonary standpoint she is doing well. She is on strict reflux precautions and we have stressed the importance of this time and time again to her. Dr. Holguin has adjusted her steroids. There are no positive cultures. Medications have been reviewed. We made no changes today. Labs been reviewed. White count is 15,300 with a normal differential; H&H 13.6/ 38.5; platelet count 153,000; creatinine 0.80, BUN 23, sodium 140, potassium 2.9 (hypokalemia) which is being replaced and we have ordered a magnesium level Exam (Progress Note) - Constitutional Vitals: Period Temp Pulse Resp BP Sys/Bernabe Pulse Ox Last 24 Hr 97.3 F-97.8 F 78-105 16-19 129-146/63-80 90-100 Exam: Chest is wheeze free Heart sounds are distant, but no appreciable murmur Abdomen is obese, but nontender and nondistended; bowel sounds are positive 4 Extremities with nothing to suggest acute deep venous thrombophlebitis Psychiatric oriented 3 Neurologic long-term motor function is intact Plan: Continue present treatment. Strict reflux precautions. Potassium is being replaced. Follow-up magnesium level when available. Physical therapy consult. See orders. Results - Labs CBC & BMP: 07/14/17 07:12 07/14/17 07:12
[2017-07-14] MEDS: LEVOFLOXACIN INJ 500 MG in PREMIX 1 EACH IV SCH (12:17)
[2017-07-14] MEDS: MONTELUKAST 10 MG TABLET PO SCH (20:40)
[2017-07-15] MEDS: ALBUTEROL/IPRATROPIUM 3 ML NEB RESP TX SCH ×6 (03:33→23:54)
[2017-07-15 06:02] LABS: Calcium 8.1 MG/DL (8.5-10.1)
[2017-07-15 06:03] LABS: Osmolality,Calculated 283.1 MOS/KG (273-304); Potassium 3.8 MMOL/L (3.5-5.1)
[2017-07-15] MEDS: DORNASE ALFA 2.5 MG/2.5 ML VIAL RESP TX SCH ×2 (07:19→19:26)
[2017-07-15] MEDS: LIDOCAINE 4% TOP SOLN 50 ML BOTTLE RESP TX SCH ×4 (09:16→22:02)
[2017-07-15] MEDS: INSULIN LISPRO 100 UNIT/ML SUBCUT SCH ×4 (09:25→22:03)
[2017-07-15] MEDS: INSULIN ASPART PROTAMINE/ASPART 70/30 100 UNIT/ML SUBCUT SCH ×3 (09:25→16:35)
[2017-07-15] MEDS: INSULIN GLARGINE 100 UNIT/ML SUBCUT SCH ×2 (09:28→22:03)
--- NOTE | 2017-07-15 09:50 | Hospitalist Progress Note ---
Assessment and Plan (1) History of liver cancer Status: Chronic Assessment and plan: She has a history of liver cancer. She is treated by Dr. Leon at [facility]. There is no evidence of metastatic disease. Current Visit: No (2) Morbid obesity Status: Chronic Current Visit: Yes (3) Obstructive sleep apnea Status: Chronic Current Visit: Yes (4) Asthma with exacerbation Status: Acute Assessment and plan: She continues on intravenous clindamycin and oral prednisone. She appears significantly improved to me, although she still complains of coughing and weakness. She is being followed by pulmonary. . Current Visit: Yes Qualifiers: Asthma severity: severe Asthma persistence: persistent Qualified Code(s) : J45.51 - Severe persistent asthma with (acute) exacerbation Hospitalist: Subjective Interval history: She appears much improved to me although she claims to be too weak to go home. I have consulted case management for swing bed placement. Exam - Constitutional Vitals: Period Temp Pulse Resp BP Sys/Bernabe Pulse Ox Last 24 Hr 97.3 F-97.9 F 87-101 16-20 113-144/45-85 93-99 General appearance: no acute distress - Head Head exam: Present: normal inspection - Neck Neck exam: Present: normal inspection - Respiratory Respiratory exam: Present: clear to auscultation bilaterally - Cardiovascular Cardiovascular exam: Present: regular rate and rhythm - GI/Abdominal GI/Abdominal exam: Present: normal bowel sounds, soft, other (Nontender with no palpable masses or hepatosplenomegaly.) - Extremities Exam Extremities exam: Present: normal inspection - Skin Skin exam: Present: normal color, warm, intact Results - Labs CBC & BMP: 07/14/17 07:12 07/15/17 04:38
[2017-07-15] MEDS: COLESEVELAM 625 MG TABLET PO SCH ×2 (10:29→16:35)
[2017-07-15] MEDS: ENOXAPARIN 40 MG/0.4 ML SYRINGE SUBCUT SCH (10:29)
[2017-07-15] MEDS: DOCUSATE SODIUM 100 MG CAPSULE PO PRN (10:30)
[2017-07-15] MEDS: POTASSIUM CHLORIDE 20 MEQ TABLET PO SCH (10:30)
[2017-07-15] MEDS: GABAPENTIN 100 MG CAPSULE PO SCH (10:30)
[2017-07-15] MEDS: amLODIPine 10 MG TABLET PO SCH (10:30)
[2017-07-15] MEDS: FUROSEMIDE 20 MG TABLET PO SCH (10:30)
[2017-07-15] MEDS: PANTOPRAZOLE 40 MG TABLET PO SCH (10:30)
[2017-07-15] MEDS: LEVOTHYROXINE 100 MCG TABLET PO SCH (10:30)
[2017-07-15] MEDS: predniSONE 10 MG TABLET PO SCH (10:31)
[2017-07-15] MEDS: LISINOPRIL 10 MG TABLET PO SCH (10:31)
[2017-07-15] MEDS: BENZONATATE 100 MG CAPSULE PO SCH ×3 (10:31→22:03)
--- NOTE | 2017-07-15 11:03 | Pulmonology Progress Note ---
Pulmonary - PN: Subj Interval history: Devyn Harkins, [facility]-, acting as scribe for Dr. Wan Vergara Ms. Mills is a 66-year-old -[place] female who we saw in initial pulmonary consultation 07/08/2017. At that time, our impressions were: #1: Chronic cough for 1 year secondary to COPD, retained secretions, and gastroesophageal reflux with silent microaspiration #2: Asthma with acute exacerbation #3: High blood pressure #4: Insulin-dependent diabetes mellitus #5: History of cancer of the liver followed by Dr. Krause and Dr. Leon [facility] #6: Hypothyroidism #7: Pernicious anemia #8: Morbid obesity #9: Hyperlipidemia #10: Degenerative joint disease #11: Obstructive sleep apnea #12: See past history 07/09/2017. Patient was seen today along with a female family member and her nurse. Earlier today the patient underwent barium swallow study. This showed minimal indentation on the cervical esophagus by the cricopharyngeus muscle. Minimal tertiary contractions. Small sliding-type hiatal hernia with minimal gastroesophageal reflux. No significant stricture or definite mass. We discussed these findings with the patient. Again, we have emphasized reflux precautions with her to her understanding. She continues to have a cough and this is secondary to her COPD, retained secretions, and reflux with silent microaspiration as noted in her H&P. This is going to take time to resolve. We went over this again with her today. She is not wheezing. Medications have been reviewed. We made no changes today. Labs been reviewed. TSH is low at 0.339 and free T4 is normal at 1.15. 07/10/2017. Inhaled Xylocaine has helped patient's cough a good bit. She still has a cough is mobilizing sputum. She is worried about metastatic liver cancer. There is no chest x-ray evidence of this. Recent bronchoscopy specimens were class I and class II and I discussed this with the patient today. I told her the areas of erosive bronchitis seen in her left upper lung and left lower lung will gradually heal but we need to continue to adhere by an antireflux regimen. White count is 16,685.6 segs. H&H 12.9/37.1. Electrolytes are normal. Creatinine is 0.80 with BUN is 17. Thyroid function tests are normal. Urine shows no evidence of infection. There are no positive cultures reported from this admission. Overall the patient's better today. 07/11/2017. Patient sitting up in a chair today and she appears comfortable. The frequency and severity of her cough improved significantly. Periodically she gets inhaled Xylocaine. Her chest sounds much better to me. She is a little reluctant to confirm this. There are no new problems. Patient had no new complaints. 07/12/2017. Patient was seen today along with Yeni Recinos RN. She complains of costochondritis secondary to coughing. We have shown her exercises to stretch the surrounding muscles, but has informed her that this will most likely take time to heal. She could use Aspercreme as needed. She is already on Solu-Medrol and we would not go up on her dose. She continues to cough. Previous bronchoscopy specimens from 07/06/2017 grew no organisms. She has no positive cultures this admission either. Medications have been reviewed. We made no changes today. Labs been reviewed. No new labs drawn today. 07/13/2017. The patient was seen today along with Yeni Recinos RN. From a pulmonary standpoint patient continues to do well. She asked about a flu shot and we told her that this would be fine at discharge. Chest x-ray today continues to show bilateral linear atelectasis, but this is stable. We have again stressed to her that it will take quite some time for cough to completely resolve but if she continues to follow a strict antireflux regimen and watch for triggers of her reflux she will continue to improve over time. Medications have been reviewed. We made no changes today. Labs been reviewed. No new labs were drawn today. 07/14/2017. Patient was seen today along with Gio Robles RN. Upon entering the room, the patient stated that she was not ready to be discharged. She stated that she was too weak to go home. We made it clear that decision was not ours, but we have ordered physical therapy for evaluation and treatment. From a pulmonary standpoint she is doing well. She is on strict reflux precautions and we have stressed the importance of this time and time again to her. Dr. Holguin has adjusted her steroids. There are no positive cultures. Medications have been reviewed. We made no changes today. Labs been reviewed. White count is 15,300 with a normal differential; H&H 13.6/ 38.5; platelet count 153,000; creatinine 0.80, BUN 23, sodium 140, potassium 2.9 (hypokalemia) which is being replaced and we have ordered a magnesium level 07/15/2017. The patient was seen today along with Gio Robles RN. Patient was up and about to take a shower this morning. She continues to report that she feels weak. Case management is working on swing bed placement and we certainly agree with this. From a pulmonary standpoint she is doing very well. She continues to have a cough and has explained to her multiple occasions this will persist until her reflux comes under much better control. Cough is nonproductive. She is afebrile. On chest exam, she is wheeze free. Certainly , from a pulmonary standpoint she is fine for discharge to swing bed at any time. Medications have been reviewed. Yesterday the patient's IV infiltrated. Her Levaquin was changed to p.o. Labs been reviewed. Creatinine 0.70, BUN 22, electrolytes are normal Exam (Progress Note) - Constitutional Vitals: Period Temp Pulse Resp BP Sys/Bernabe Pulse Ox Last 24 Hr 97.3 F-97.9 F 87-101 16-20 113-166/45-85 93-99 Exam: Chest is wheeze free Heart sounds are distant, but no appreciable murmur Abdomen is obese, but nontender and nondistended; bowel sounds are positive 4 Extremities with nothing to suggest acute deep venous thrombophlebitis Psychiatric oriented 3 Neurologic long-term motor function is intact Plan: Continue present treatment. Strict reflux precautions. Patient is fine to transfer to swing bed from our standpoint at any time. Results - Labs CBC & BMP: 07/14/17 07:12 07/15/17 04:38
[2017-07-15] MEDS: MONTELUKAST 10 MG TABLET PO SCH (22:03)
[2017-07-16] MEDS: ALBUTEROL/IPRATROPIUM 3 ML NEB RESP TX SCH ×3 (02:54→11:15)
[2017-07-16] MEDS: LEVOTHYROXINE 100 MCG TABLET PO SCH (06:30)
[2017-07-16] MEDS: LIDOCAINE 4% TOP SOLN 50 ML BOTTLE RESP TX SCH (07:32)
[2017-07-16] MEDS: DORNASE ALFA 2.5 MG/2.5 ML VIAL RESP TX SCH (07:32)
[2017-07-16] MEDS: INSULIN GLARGINE 100 UNIT/ML SUBCUT SCH (08:52)
[2017-07-16] MEDS: COLESEVELAM 625 MG TABLET PO SCH (08:52)
[2017-07-16] MEDS: ENOXAPARIN 40 MG/0.4 ML SYRINGE SUBCUT SCH (08:56)
[2017-07-16] MEDS: predniSONE 10 MG TABLET PO SCH (08:58)
[2017-07-16] MEDS: POTASSIUM CHLORIDE 20 MEQ TABLET PO SCH (08:58)
[2017-07-16] MEDS: BENZONATATE 100 MG CAPSULE PO SCH (08:58)
[2017-07-16] MEDS: FUROSEMIDE 20 MG TABLET PO SCH (08:58)
[2017-07-16] MEDS: LISINOPRIL 10 MG TABLET PO SCH (08:58)
[2017-07-16] MEDS: PANTOPRAZOLE 40 MG TABLET PO SCH (08:58)
[2017-07-16] MEDS: GABAPENTIN 100 MG CAPSULE PO SCH (08:58)
[2017-07-16] MEDS: INSULIN ASPART PROTAMINE/ASPART 70/30 100 UNIT/ML SUBCUT SCH ×2 (08:59→12:47)
[2017-07-16] MEDS: INSULIN LISPRO 100 UNIT/ML SUBCUT SCH ×2 (08:59→12:47)
[2017-07-16] MEDS: amLODIPine 10 MG TABLET PO SCH (08:59)
--- NOTE | 2017-07-16 09:38 | Hospitalist Progress Note ---
Assessment and Plan (1) History of liver cancer Status: Chronic Assessment and plan: She has a history of liver cancer. She is treated by Dr. Leon at [facility]. There is no evidence of metastatic disease. Current Visit: No (2) Morbid obesity Status: Chronic Current Visit: Yes (3) Obstructive sleep apnea Status: Chronic Current Visit: Yes (4) Asthma with exacerbation Status: Acute Assessment and plan: She continues on intravenous clindamycin and oral prednisone. She appears significantly improved to me, although she still complains of coughing and weakness. She is being followed by pulmonary. . Current Visit: Yes Qualifiers: Asthma severity: severe Asthma persistence: persistent Qualified Code(s) : J45.51 - Severe persistent asthma with (acute) exacerbation Hospitalist: Subjective Interval history: She looks and feels much better today. She continues to be followed by pulmonary. She is awaiting placement in a swing bed. Exam - Constitutional Vitals: Period Temp Pulse Resp BP Sys/Bernabe Pulse Ox Last 24 Hr 97.6 F-98.0 F 75-100 17-20 131-175/69-94 95-100 General appearance: no acute distress - Head Head exam: Present: normal inspection - Neck Neck exam: Present: normal inspection - Respiratory Respiratory exam: Present: clear to auscultation bilaterally - Cardiovascular Cardiovascular exam: Present: regular rate and rhythm - GI/Abdominal GI/Abdominal exam: Present: normal bowel sounds, soft, other (Nontender with no palpable masses or hepatosplenomegaly.) - Extremities Exam Extremities exam: Present: normal inspection - Skin Skin exam: Present: normal color, warm, intact Results - Labs CBC & BMP: 07/14/17 07:12 07/15/17 04:38
--- NOTE | 2017-07-16 10:02 | Discharge Summary ---
Hospital Course - Hospital Course Hospital Course: Ms. Mills who is a 66 year old female who presents to the emergency room complaining of shortness of breath, wheezing, dry cough 3 days. Patient has a long-standing history of COPD and asthma and is followed by Dr. Robins. On July 06, 2017 she received a fiberoptic bronchoscopy that showed erosive friable bronchitis in the left upper lung and left lower lung, nocturnal GERD with microaspiration, and sputum retention with ineffective cough. Pathology reports benign respiratory epithelium with market elevation in squamous metaplasia. Dr. Vergara recommended her to take Tessalon Perles for the cough and Mucinex. At home she has taken multiple breathing treatments without improvement of her symptoms. She decided to come to the emergency room. While here she was placed on continuous breathing treatments for approximately 1 hour with some improvement in her breathing however she still felt like she was wheezing. She was given clindamycin 600 mg IV, nitroglycerin topical, hydralazine, Lasix, Zofran, and Solu-Medrol 125 mg IV. She is having good results with the Lasix. CHF is a new diagnosis for her and has an appointment on July [address] Conti. Additional history includes hypertension, diabetes, obstructive sleep apnea, incontinence, liver cancer, hypothyroidism, history of hepatitis C, arthritis, appendectomy, cholecystectomy, hysterectomy, and 2 sections. Her family doctor is Dr. Ramirez. She will be admitted into inpatient, received breathing treatments and IV steroids, pulmonology consultation, and hydration. At this time I do not believe it is her congestive heart failure because her BNP was negative. Mrs. Mills is a 66-year-old -Mex[place] female who we have been asked to see in pulmonary consultation for evaluation and treatment. The request for consultation was made by Dr. Johnson. This patient was previously followed from a pulmonary standpoint by Dr. Vladimir Causey. She is followed from a pulmonary care standpoint by Dr. Umu Ramirez from a GI standpoint by Dr. Jose Angel Krause. She also sees Dr. Leon at [facility] secondary to a history of liver cancer. She was seen as a new patient by Dr. Vergara on 06/30/2017. Her initial visit with Dr. Vergara she complained of a cough that has been present for 1 year. At that time, the etiology was undetermined, but it was suspected that this is secondary to silent gastric esophageal reflux with microaspiration. On 07/06/2017 the patient underwent fiberoptic bronchoscopy. This showed COPD with collapsible large and small airways and partial collapsibility of the trachea, erosive friable left upper lung and left lower lobe bronchitis, sputum retention ineffective cough, and gastroesophageal reflux disease. It is felt her chronic cough was secondary to COPD, retained secretions, and probably secondary also to silent nocturnal gastric esophageal reflux with microaspiration. Bronchoscopy lavage cultures grew no organisms. There is no AFB or fungus seen on smears. Cytology was reported as class II. The patient presented to [place] ER last night with complaints of cough and wheezing. She states that at the onset of her symptoms she was "just sitting in a chair". She was awake by her report. She was treated with a multitude of things in the ER and only minimally improved by her report. She was subsequently admitted to the hospitalist's service for further evaluation and care. Pulmonary function test on 03/09/2017 showed: 1. Small airways disease. FEF 25/75 was 67%. Note that FEV1/FVC was 85%. 2. Small pockets of bronchodilator effect. 2% improvement in FVC. 3. DLCO 46%. DLCO/VA of 143%. 4. Restrictive lung disease is present. FVC is 1.25 L or 46% of predicted. Based on x-ray and physical exam, this appears to be related to body habitus. The patient is 62 inches tall, weighs 237 pounds, and is morbidly obese. Bronchoscopy 10/30/2016 at [facility] by Dr. Causey. This was for evaluation of right middle lung infiltrate. No abnormalities were noted. Fiberoptic bronchoscopy October [address] Vergara. The patient was found to have non-resolving right upper lung and right lower lobe infiltrative lesion with endobronchial erythema and friability in the left upper lung, the right upper lung and right middle lung. Bronchoscopy specimens were negative for bacteria, AFB, and fungus. Cytologies were class I and class II. As noted above the patient was seen in the hospital in consultation by Dr. Vergara of pulmonary. She was treated with intravenous methylprednisolone, intravenous levofloxacin, and albuterol ipratropium nebulizer therapy. She improved significantly during her hospitalization. At the time of her discharge she was stable and ambulatory. Diagnosis - Discharge Diagnosis (1) History of liver cancer Status: Chronic (2) Morbid obesity Status: Chronic (3) Obstructive sleep apnea Status: Chronic (4) Asthma with exacerbation Status: Acute Discharge Plan - Discharge Data Disposition: Home Health Service Condition at Discharge: Stable Discharge Diet: advance to your usual diet Activity: resume usual activities as tolerated - Discharge Medications New predniSONE TAB [PredniSONE] 10 mg PO DAILY #30 tablet Lisinopril [Prinivil] 10 mg PO DAILY #30 tablet Potassium Chloride Cap/Tab [K Dur] 20 meq PO DAILY #30 tablet Continue Montelukast Tab [Singulair Tab] 10 mg PO QAM Furosemide Tab [Lasix Tab] 60 mg PO QAM Cyanocobalamin Inj [Vitamin B12 Inj] 1,000 mcg SUBCUT Q30D Insulin Detemir [Levemir] 68 unit SUBCUT QAM amLODIPine [Norvasc] 10 mg PO QAM Dicyclomine Cap/Tab [Bentyl Cap/Tab] 10 mg PO QID Levothyroxine Tab [Synthroid Tab] 100 mcg PO QAM Insulin Aspart Prot/Insuln Asp [NovoLOG Mix 70-30 FlexPen] 20 unit SUBCUT TID Albuterol Neb [Proventil Neb] 2.5 mg RESP TX QID Budesonide/Formoterol 160-4.5 [Symbicort 160-4.5] 2 puff INH BID #7 inhaler Pantoprazole Tab [Protonix Tab] 40 mg PO DAILY tablet Colesevelam [Welchol] 1,875 mg PO BID W/MEALS tablet Gabapentin 100 mg PO QAM Benzonatate [Tessalon] 200 mg PO BID Albuterol Inhaler [Proventil Inhaler] 2 puff INH Q4H PRN #1 inhaler PRN Reason: Shortness Of Breath/Wheezing Insulin Detemir [Levemir] 52 unit SUBCUT BEDTIME - Follow Up or Referral - Forms/Instructions Exam - Constitutional Vitals: Period Temp Pulse Resp BP Sys/Bernabe Pulse Ox Last 24 Hr 97.0 F-98.0 F 75-100 17-20 131-189/69-94 95-100 Discharge Results Labs on day of discharge: Labs from last 24 hours 07/15/17 07/15/17 07/15/17 19:46 16:04 11:12 POC Glucose 307 H 211 H 205 H DS: Provider Date of admission: 07/08/17 00:39 Primary care physician: Umu Ramirez MD Attending physician on admission: Perdo Luis Johnson MD Consults: 07/08/17 01:19 Consult to Physician [CONS] Routine Comment: asthma excerbation Consulting Provider: Wan Vergara Person Notified: [place] Date Notified: 07/08/17 Time Notified: 09:29 07/14/17 09:58 Consult to Physical Therapy [CONS] Routine Reason for Physical Therapy: Evaluate and Treat 07/15/17 09:23 Consult to Case Mgmt/Social Srvs [CONS] Routine Reason for Case Mgmt/Social Srvs: Swingbed/SNF/Custodial Consult Comment: she is medically ready for discharge but claims to be too weak for D/C 07/15/17 16:07 Consult to Occupational Therapy [CONS] Routine Reason for Occupational Therapy: Evaluate and Treat Discharging clinician: Mohit Holguin
--- NOTE | 2017-07-16 10:59 | Pulmonology Progress Note ---
Pulmonary - PN: Subj Interval history: Devyn Harkins, [facility]-, acting as scribe for Dr. Wan Vergara Ms. Mills is a 66-year-old -[place] female who we saw in initial pulmonary consultation 07/08/2017. At that time, our impressions were: #1: Chronic cough for 1 year secondary to COPD, retained secretions, and gastroesophageal reflux with silent microaspiration #2: Asthma with acute exacerbation #3: High blood pressure #4: Insulin-dependent diabetes mellitus #5: History of cancer of the liver followed by Dr. Krause and Dr. Leon [facility] #6: Hypothyroidism #7: Pernicious anemia #8: Morbid obesity #9: Hyperlipidemia #10: Degenerative joint disease #11: Obstructive sleep apnea #12: See past history 07/09/2017. Patient was seen today along with a female family member and her nurse. Earlier today the patient underwent barium swallow study. This showed minimal indentation on the cervical esophagus by the cricopharyngeus muscle. Minimal tertiary contractions. Small sliding-type hiatal hernia with minimal gastroesophageal reflux. No significant stricture or definite mass. We discussed these findings with the patient. Again, we have emphasized reflux precautions with her to her understanding. She continues to have a cough and this is secondary to her COPD, retained secretions, and reflux with silent microaspiration as noted in her H&P. This is going to take time to resolve. We went over this again with her today. She is not wheezing. Medications have been reviewed. We made no changes today. Labs been reviewed. TSH is low at 0.339 and free T4 is normal at 1.15. 07/10/2017. Inhaled Xylocaine has helped patient's cough a good bit. She still has a cough is mobilizing sputum. She is worried about metastatic liver cancer. There is no chest x-ray evidence of this. Recent bronchoscopy specimens were class I and class II and I discussed this with the patient today. I told her the areas of erosive bronchitis seen in her left upper lung and left lower lung will gradually heal but we need to continue to adhere by an antireflux regimen. White count is 16,685.6 segs. H&H 12.9/37.1. Electrolytes are normal. Creatinine is 0.80 with BUN is 17. Thyroid function tests are normal. Urine shows no evidence of infection. There are no positive cultures reported from this admission. Overall the patient's better today. 07/11/2017. Patient sitting up in a chair today and she appears comfortable. The frequency and severity of her cough improved significantly. Periodically she gets inhaled Xylocaine. Her chest sounds much better to me. She is a little reluctant to confirm this. There are no new problems. Patient had no new complaints. 07/12/2017. Patient was seen today along with Yeni Recinos RN. She complains of costochondritis secondary to coughing. We have shown her exercises to stretch the surrounding muscles, but has informed her that this will most likely take time to heal. She could use Aspercreme as needed. She is already on Solu-Medrol and we would not go up on her dose. She continues to cough. Previous bronchoscopy specimens from 07/06/2017 grew no organisms. She has no positive cultures this admission either. Medications have been reviewed. We made no changes today. Labs been reviewed. No new labs drawn today. 07/13/2017. The patient was seen today along with Yeni Recinos RN. From a pulmonary standpoint patient continues to do well. She asked about a flu shot and we told her that this would be fine at discharge. Chest x-ray today continues to show bilateral linear atelectasis, but this is stable. We have again stressed to her that it will take quite some time for cough to completely resolve but if she continues to follow a strict antireflux regimen and watch for triggers of her reflux she will continue to improve over time. Medications have been reviewed. We made no changes today. Labs been reviewed. No new labs were drawn today. 07/14/2017. Patient was seen today along with Gio Rboles RN. Upon entering the room, the patient stated that she was not ready to be discharged. She stated that she was too weak to go home. We made it clear that decision was not ours, but we have ordered physical therapy for evaluation and treatment. From a pulmonary standpoint she is doing well. She is on strict reflux precautions and we have stressed the importance of this time and time again to her. Dr. Holguin has adjusted her steroids. There are no positive cultures. Medications have been reviewed. We made no changes today. Labs been reviewed. White count is 15,300 with a normal differential; H&H 13.6/ 38.5; platelet count 153,000; creatinine 0.80, BUN 23, sodium 140, potassium 2.9 (hypokalemia) which is being replaced and we have ordered a magnesium level 07/15/2017. The patient was seen today along with Gio Robles RN. Patient was up and about to take a shower this morning. She continues to report that she feels weak. Case management is working on swing bed placement and we certainly agree with this. From a pulmonary standpoint she is doing very well. She continues to have a cough and has explained to her multiple occasions this will persist until her reflux comes under much better control. Cough is nonproductive. She is afebrile. On chest exam, she is wheeze free. Certainly , from a pulmonary standpoint she is fine for discharge to swing bed at any time. Medications have been reviewed. Yesterday the patient's IV infiltrated. Her Levaquin was changed to p.o. Labs been reviewed. Creatinine 0.70, BUN 22, electrolytes are normal 07/16/2017. The patient was seen today along with Gio Robles RN, and 2 female friends. The patient was declined for swing bed. She was too functional. From a pulmonary standpoint she continues to do very well. Her cough is improving. Again, we have stressed the importance of complying with a strict antireflux regimen. She verbalized understanding. We have scheduled her follow-up with Kiara Forrester, nurse practitioner, in approximately 6 months with a chest x-ray. Medications been reviewed. We made no changes. Labs been reviewed. No new labs are drawn today. Exam (Progress Note) - Constitutional Vitals: Period Temp Pulse Resp BP Sys/Bernabe Pulse Ox Last 24 Hr 97.0 F-98.0 F 75-100 17-20 131-189/69-94 95-100 Exam: Chest is wheeze free Heart sounds are distant, but no appreciable murmur Abdomen is obese, but nontender and nondistended; bowel sounds are positive 4 Extremities with nothing to suggest acute deep venous thrombophlebitis Psychiatric oriented 3 Neurologic long-term motor function is intact Plan: Again, the patient was declined for swing bed. She states that she is going to be discharged home. We again discussed the absolute importance of strict reflux precautions. Her cough is improving slightly. She has been scheduled to follow-up with Kiara Forrester, nurse practitioner, in approximately 6 months with a chest x-ray. Your plans for discharge are noted. We will sign off. Please reconsult as needed. Results - Labs CBC & BMP: 07/14/17 07:12 07/15/17 04:38 Specialty Discharge - Follow Up or Referrals Follow up with: Kiara Forrester CFNP [Advanced Practice Nurse] - (6 months with CXR)
[2017-07-16] MEDS ORDERED: INFLUENZA VIRUS VACCINE 0.5 ML SYRINGE IM ONE (12:52)
[2017-07-16 13:20] VITALS: BP 160/84
== END 2017-07-16 13:46 | disposition home health service (06) | DRG 167 ==
LOC: N.ED 19:59 → N.EDINP 07-08 00:39 → SUATTDRO 07-08 00:39 → N.5E 07-08 01:03
PROVIDERS: ADMIT Internal Medicine

== ENCOUNTER 2021-05-07 10:21 | Inpatient (IN) ==
[2021-05-07 16:08] LABS: Basophils % 0.2 % (0.0-0.8); Eosinophils # 0.1 10*3/uL (0.0-0.87); Eosinophils % 0.7 % (0.00-10.9); Hematocrit 34.6 VOL% (35.7-47.0); Hemoglobin 11.2 GM/DL (12.0-16.0); Immature Granulocytes % 0.7 %; Immature Granulocytes Absolute 0.11 #; Lymphocytes # 1.6 10*3/uL (1.4-4.0); Lymphocytes % 9.8 % (21.3-54.2); Mean Corpuscular HGB Conc 32.4 GM/DL (32-36); Mean Corpuscular Volume 86.7 FL (87-102); Monocytes % 7.1 % (1.7-12.7); Neutrophils % 81.5 % (38.7-73.9); Platelet Count 188 T/CUMM (130-400); Red Blood Count 3.99 MC/CUMM (3.8-5.5); Red Cell Distribution Width 12.9 % (9.3-17.3); White Blood Count 16.7 T/CUMM (4-12)
[2021-05-07 16:29] LABS: Albumin 3.2 G/DL (3.4-5.0); Bilirubin,Total 0.9 MG/DL (0.20-1.00); Calcium 9.3 MG/DL (8.5-10.1); Potassium 3.5 MMOL/L (3.5-5.1); Total Protein 8.1 G/DL (6.4-8.2)
[2021-05-07] MEDS ORDERED: SODIUM CHLORIDE 0.9% 1,000 ML IV STA (16:41)
[2021-05-07 17:37] LABS: PT Patient Result 11.3 SECS (10.5-12.0); Partial Thromboplastin Time 24.3 SECS (23.9-33.8)
[2021-05-07] MEDS ORDERED: CIPROFLOXACIN INJ 400 MG/200 ML PREMIX IV ONE (18:29)
[2021-05-07] MEDS ORDERED: metroNIDAZOLE INJ 500 MG/100 ML PREMIX IV ONE (18:29)
[2021-05-07] MEDS ORDERED: BACLOFEN 10 MG TABLET PO PRN (19:30)
[2021-05-07] MEDS ORDERED: FUROSEMIDE 80 MG TABLET PO PRN (19:30)
[2021-05-07] MEDS ORDERED: ONDANSETRON 4 MG/2 ML VIAL IV PRN (19:32)
[2021-05-07] MEDS ORDERED: MORPHINE 2 MG/1 ML SYRINGE IV PRN (19:32)
[2021-05-07] MEDS ORDERED: GLUCAGON 1 MG VIAL IM PRN (19:32)
[2021-05-07] MEDS ORDERED: DEXTROSE 50% 25 GM/50 ML VIAL IV PRN (19:32)
[2021-05-07 19:35] LABS: Bilirubin,Urine Negative (Negative); Blood, Urine Negative (Negative); Glucose,Urine (UA) Negative (Negative); Ketones,Urine Negative (Negative); Mucus,Urine Occasional /LPF (Occasional); Nitrite,Urine Negative (Negative); Protein,Urine Negative; Squamous Epithelial Cell,Urine Occasional /HPF (0-10); Urine Appearance CLEAR (Clear); Urine Color Yellow (Yellow); Urine Specific Gravity 1.034 (1.001-1.035); Urine Urobilinogen < 2.0 EU/DL (0.2-1.0)
[2021-05-07] MEDS: CIPROFLOXACIN INJ 400 MG/200 ML PREMIX IV SCH (19:59)
[2021-05-07] MEDS: hydrALAZINE 20 MG/1 ML VIAL IV PRN ×2 (20:39→22:20)
[2021-05-07] MEDS: metroNIDAZOLE INJ 500 MG/100 ML PREMIX IV SCH (21:24)
[2021-05-08] MEDS: EZETIMIBE 10 MG TABLET PO SCH ×2 (00:24→20:33)
[2021-05-08] MEDS: COLESEVELAM 625 MG TABLET PO SCH ×3 (00:24→20:33)
[2021-05-08] MEDS: NEBIVOLOL 10 MG TABLET PO SCH (00:24)
[2021-05-08] MEDS: MONTELUKAST 10 MG TABLET PO SCH ×3 (00:24→20:33)
[2021-05-08] MEDS: VALSARTAN 160 MG TABLET PO SCH ×3 (00:24→20:33)
[2021-05-08] MEDS: LACTATED RINGERS 1,000 ML IV SCH ×4 (00:35→23:32)
[2021-05-08] MEDS: ALBUTEROL/IPRATROPIUM 3 ML NEB RESP TX SCH ×4 (01:10→19:25)
[2021-05-08] MEDS: metroNIDAZOLE INJ 500 MG/100 ML PREMIX IV SCH ×3 (03:07→20:32)
[2021-05-08 04:58] LABS: Basophils % 0.2 % (0.0-0.8); Eosinophils # 0.1 10*3/uL (0.0-0.87); Eosinophils % 0.8 % (0.00-10.9); Hematocrit 27.1 VOL% (35.7-47.0); Hemoglobin 8.7 GM/DL (12.0-16.0); Immature Granulocytes % 0.6 %; Immature Granulocytes Absolute 0.09 #; Lymphocytes # 1.6 10*3/uL (1.4-4.0); Lymphocytes % 10.4 % (21.3-54.2); Mean Corpuscular HGB Conc 32.1 GM/DL (32-36); Mean Corpuscular Volume 87.7 FL (87-102); Mean Platelet Volume 10.9 FL (9.6-12.0); Monocytes % 7.4 % (1.7-12.7); Neutrophils % 80.6 % (38.7-73.9); Platelet Count 163 T/CUMM (130-400); Red Blood Count 3.09 MC/CUMM (3.8-5.5); White Blood Count 14.9 T/CUMM (4-12)
[2021-05-08 05:26] LABS: Albumin 2.3 G/DL (3.4-5.0); Bilirubin,Total 0.6 MG/DL (0.20-1.00); Calcium 8.3 MG/DL (8.5-10.1); Osmolality,Calculated 280.4 MOS/KG (273-304); Potassium 3.6 MMOL/L (3.5-5.1); Total Protein 6.1 G/DL (6.4-8.2)
[2021-05-08] MEDS: LEVOTHYROXINE 100 MCG TABLET PO SCH (06:20)
[2021-05-08] MEDS ORDERED: NON-FORMULARY MEDICATION (Omeprazole 20 MG capsule,delayed release(DR/EC)) PO SCH (09:00)
[2021-05-08] MEDS ORDERED: DICLOFENAC 1% GEL 100 GM TUBE TOP PRN (09:00)
[2021-05-08] MEDS: PANTOPRAZOLE 40 MG VIAL IV SCH (10:29)
[2021-05-08] MEDS: amLODIPine 5 MG TABLET PO SCH (10:30)
[2021-05-08] MEDS: SPIRONOLACTONE 25 MG TABLET PO SCH (10:30)
[2021-05-08] MEDS: predniSONE 5 MG TABLET PO SCH (10:30)
[2021-05-08] MEDS: MAGNESIUM OXIDE 400 MG TABLET PO SCH (10:30)
[2021-05-08] MEDS: OLMESARTAN 20 MG TABLET PO SCH (10:30)
[2021-05-08] MEDS: CIPROFLOXACIN INJ 400 MG/200 ML PREMIX IV SCH ×2 (10:35→21:26)
[2021-05-08] MEDS: KETOROLAC 0.5% OPH SOLN 5 ML BOTTLE BOTH EYES SCH ×3 (10:40→20:34)
[2021-05-08] MEDS: INSULIN GLARGINE 100 UNIT/ML SUBCUT SCH (11:56)
[2021-05-08] MEDS: INSULIN LISPRO 100 UNIT/ML SUBCUT SCH ×3 (11:56→17:03)
[2021-05-08] MEDS: REPAGLINIDE 1 MG TABLET PO SCH ×3 (17:26→23:19)
[2021-05-08] MEDS: cloNIDine 0.1 MG TABLET PO SCH (23:30)
[2021-05-09] MEDS: NEBIVOLOL 10 MG TABLET PO SCH ×2 (00:17→21:32)
[2021-05-09] MEDS: ALBUTEROL/IPRATROPIUM 3 ML NEB RESP TX SCH ×4 (01:09→19:50)
[2021-05-09] MEDS: metroNIDAZOLE INJ 500 MG/100 ML PREMIX IV SCH ×3 (03:45→21:39)
[2021-05-09] MEDS: LEVOTHYROXINE 100 MCG TABLET PO SCH (06:01)
[2021-05-09] MEDS: cloNIDine 0.1 MG TABLET PO SCH ×3 (06:01→21:32)
[2021-05-09] MEDS: LACTATED RINGERS 1,000 ML IV SCH ×3 (08:23→18:42)
[2021-05-09] MEDS: predniSONE 5 MG TABLET PO SCH (08:50)
[2021-05-09] MEDS: VALSARTAN 160 MG TABLET PO SCH ×2 (08:50→21:32)
[2021-05-09] MEDS: MONTELUKAST 10 MG TABLET PO SCH ×2 (08:50→21:37)
[2021-05-09] MEDS: SPIRONOLACTONE 25 MG TABLET PO SCH (08:50)
[2021-05-09] MEDS: OLMESARTAN 20 MG TABLET PO SCH (08:50)
[2021-05-09] MEDS: amLODIPine 5 MG TABLET PO SCH (08:50)
[2021-05-09] MEDS: MAGNESIUM OXIDE 400 MG TABLET PO SCH (08:50)
[2021-05-09] MEDS: COLESEVELAM 625 MG TABLET PO SCH ×2 (08:50→21:31)
[2021-05-09] MEDS: CIPROFLOXACIN INJ 400 MG/200 ML PREMIX IV SCH ×2 (08:51→22:30)
[2021-05-09] MEDS: PANTOPRAZOLE 40 MG VIAL IV SCH (08:51)
[2021-05-09] MEDS: INSULIN GLARGINE 100 UNIT/ML SUBCUT SCH (08:51)
[2021-05-09] MEDS: KETOROLAC 0.5% OPH SOLN 5 ML BOTTLE BOTH EYES SCH ×3 (08:52→21:29)
[2021-05-09] MEDS: INSULIN LISPRO 100 UNIT/ML SUBCUT SCH ×3 (08:57→16:28)
[2021-05-09] MEDS: REPAGLINIDE 1 MG TABLET PO SCH ×3 (09:20→22:13)
[2021-05-09] MEDS: EZETIMIBE 10 MG TABLET PO SCH (21:29)
[2021-05-10] MEDS: ALBUTEROL/IPRATROPIUM 3 ML NEB RESP TX SCH ×4 (00:40→19:41)
[2021-05-10] MEDS: LACTATED RINGERS 1,000 ML IV SCH (03:45)
[2021-05-10] MEDS: metroNIDAZOLE INJ 500 MG/100 ML PREMIX IV SCH ×3 (03:45→21:30)
[2021-05-10 05:34] LABS: Basophils % 0.2 % (0.0-0.8); Eosinophils # 0.2 10*3/uL (0.0-0.87); Eosinophils % 1.5 % (0.00-10.9); Hematocrit 26.7 VOL% (35.7-47.0); Hemoglobin 8.8 GM/DL (12.0-16.0); Immature Granulocytes % 0.7 %; Immature Granulocytes Absolute 0.08 #; Lymphocytes # 1.8 10*3/uL (1.4-4.0); Lymphocytes % 15.7 % (21.3-54.2); Mean Corpuscular Volume 87.3 FL (87-102); Mean Platelet Volume 10.9 FL (9.6-12.0); Monocytes % 8.8 % (1.7-12.7); Neutrophils % 73.1 % (38.7-73.9); Platelet Count 155 T/CUMM (130-400); Red Blood Count 3.06 MC/CUMM (3.8-5.5); Red Cell Distribution Width 12.8 % (9.3-17.3); White Blood Count 11.8 T/CUMM (4-12)
[2021-05-10] MEDS: LEVOTHYROXINE 100 MCG TABLET PO SCH (05:42)
[2021-05-10] MEDS: cloNIDine 0.1 MG TABLET PO SCH ×3 (05:42→21:27)
[2021-05-10] MEDS: CIPROFLOXACIN INJ 400 MG/200 ML PREMIX IV SCH ×2 (08:13→23:46)
[2021-05-10] MEDS: KETOROLAC 0.5% OPH SOLN 5 ML BOTTLE BOTH EYES SCH ×3 (08:15→21:37)
[2021-05-10 09:32] LABS: Calcium 8.4 MG/DL (8.5-10.1); Osmolality,Calculated 276.4 MOS/KG (273-304); Potassium 2.9 MMOL/L (3.5-5.1)
[2021-05-10] MEDS ORDERED: MAGNESIUM SULF RIDER 4 GM/100 ML PREMIX IV ONE (09:45)
[2021-05-10] MEDS: MONTELUKAST 10 MG TABLET PO SCH ×2 (10:14→21:27)
[2021-05-10] MEDS: OLMESARTAN 20 MG TABLET PO SCH (10:14)
[2021-05-10] MEDS: MAGNESIUM OXIDE 400 MG TABLET PO SCH (10:15)
[2021-05-10] MEDS: predniSONE 5 MG TABLET PO SCH (10:15)
[2021-05-10] MEDS: SPIRONOLACTONE 25 MG TABLET PO SCH (10:15)
[2021-05-10] MEDS: VALSARTAN 160 MG TABLET PO SCH ×2 (10:15→21:27)
[2021-05-10] MEDS: COLESEVELAM 625 MG TABLET PO SCH ×2 (10:21→21:27)
[2021-05-10] MEDS: PANTOPRAZOLE 40 MG VIAL IV SCH (10:21)
[2021-05-10] MEDS: INSULIN LISPRO 100 UNIT/ML SUBCUT SCH ×3 (10:52→17:25)
[2021-05-10] MEDS: INSULIN GLARGINE 100 UNIT/ML SUBCUT SCH (10:54)
[2021-05-10] MEDS: amLODIPine 5 MG TABLET PO SCH (10:56)
[2021-05-10] MEDS: REPAGLINIDE 1 MG TABLET PO SCH ×3 (10:57→21:39)
[2021-05-10] MEDS: DEXTROSE 5% NACL 0.45% 1,000 ML IV SCH (11:15)
[2021-05-10] MEDS: POTASSIUM CHLORIDE 20 MEQ TABLET PO SCH ×2 (11:21→15:56)
[2021-05-10] MEDS ORDERED: POTASSIUM CHLORIDE 20 MEQ TABLET PO SCH (15:30)
[2021-05-10] MEDS: NEBIVOLOL 10 MG TABLET PO SCH (21:27)
[2021-05-10] MEDS: EZETIMIBE 10 MG TABLET PO SCH (21:27)
[2021-05-11] MEDS: ALBUTEROL/IPRATROPIUM 3 ML NEB RESP TX SCH ×2 (00:40→07:10)
[2021-05-11] MEDS: DEXTROSE 5% NACL 0.45% 1,000 ML IV SCH (03:15)
[2021-05-11] MEDS: metroNIDAZOLE INJ 500 MG/100 ML PREMIX IV SCH (04:44)
[2021-05-11 05:41] LABS: Basophils % 0.2 % (0.0-0.8); Eosinophils # 0.2 10*3/uL (0.0-0.87); Eosinophils % 1.6 % (0.00-10.9); Hematocrit 26.7 VOL% (35.7-47.0); Hemoglobin 8.6 GM/DL (12.0-16.0); Immature Granulocytes % 0.7 %; Immature Granulocytes Absolute 0.07 #; Lymphocytes # 1.5 10*3/uL (1.4-4.0); Lymphocytes % 16.2 % (21.3-54.2); Mean Corpuscular HGB Conc 32.2 GM/DL (32-36); Mean Platelet Volume 11.2 FL (9.6-12.0); Monocytes % 10.1 % (1.7-12.7); Neutrophils % 71.2 % (38.7-73.9); Platelet Count 152 T/CUMM (130-400); Red Blood Count 3.07 MC/CUMM (3.8-5.5); Red Cell Distribution Width 12.9 % (9.3-17.3); White Blood Count 9.4 T/CUMM (4-12)
[2021-05-11 06:09] LABS: Calcium 8.1 MG/DL (8.5-10.1); Osmolality,Calculated 278.5 MOS/KG (273-304); Potassium 3.9 MMOL/L (3.5-5.1)
[2021-05-11] MEDS: LEVOTHYROXINE 100 MCG TABLET PO SCH (06:11)
[2021-05-11] MEDS: cloNIDine 0.1 MG TABLET PO SCH (06:17)
[2021-05-11] MEDS: INSULIN LISPRO 100 UNIT/ML SUBCUT SCH ×2 (07:52→11:56)
[2021-05-11] MEDS: CIPROFLOXACIN INJ 400 MG/200 ML PREMIX IV SCH (07:53)
[2021-05-11] MEDS: COLESEVELAM 625 MG TABLET PO SCH (08:03)
[2021-05-11] MEDS: VALSARTAN 160 MG TABLET PO SCH (08:03)
[2021-05-11] MEDS: MONTELUKAST 10 MG TABLET PO SCH (08:03)
[2021-05-11] MEDS: MAGNESIUM OXIDE 400 MG TABLET PO SCH (08:03)
[2021-05-11] MEDS: predniSONE 5 MG TABLET PO SCH (08:03)
[2021-05-11] MEDS: OLMESARTAN 20 MG TABLET PO SCH (08:03)
[2021-05-11] MEDS: KETOROLAC 0.5% OPH SOLN 5 ML BOTTLE BOTH EYES SCH (08:05)
[2021-05-11] MEDS: INSULIN GLARGINE 100 UNIT/ML SUBCUT SCH (08:06)
[2021-05-11] MEDS: REPAGLINIDE 1 MG TABLET PO SCH (09:27)
[2021-05-11 10:41] VITALS: BP 135/58
[2021-05-11] MEDS: amLODIPine 5 MG TABLET PO SCH (10:41)
[2021-05-11] MEDS: SPIRONOLACTONE 25 MG TABLET PO SCH (10:59)
[2021-05-11] MEDS: PANTOPRAZOLE 40 MG VIAL IV SCH (10:59)
[2021-05-11 11:24] LABS: Alanine Aminotransferase 35 U/L (13-56); Albumin 2.4 G/DL (3.4-5.0); Alkaline Phosphatase 95 U/L (45-117); Aspartate Amino Transferase 25 U/L (0-37); Bilirubin,Direct < 0.100 MG/DL (0.0-0.20); Bilirubin,Indirect 0.3 MG/DL (0.0-1.0); Bilirubin,Total < 0.39 MG/DL (0.20-1.00)
[2021-05-11] MEDS ORDERED: metroNIDAZOLE 500 MG TABLET PO SCH (14:00)
[2021-05-11] MEDS ORDERED: CIPROFLOXACIN 500 MG TABLET PO SCH (21:00)
[2021-05-12] MEDS ORDERED: CYANOCOBALAMIN 1000 MCG/1 ML VIAL IM SCH (09:00)
== END 2021-05-11 13:00 | disposition home or self-care (01) | DRG 394 ==
LOC: N.ED 10:21 → N.EDINP 19:32 → N.3E 22:36
PROVIDERS: ADMIT Internal Medicine; ATTEND Internal Medicine